=== PATIENT | male | born 1950 | race Caucasian/White ===

== ENCOUNTER → 2017-07-21 18:07 | Emergency (ER) | payer MEDICARE, OTHER ==
[2017-07-21 21:24] VITALS: BP 110/68
--- NOTE | 2017-07-22 12:04 | ED ---
Kenroy López Nikita, scribed for Ladarius Peralta MD on 07/21/17 at 1851 . Complex/Multi-Sys Presentation - HPI Summary HPI Summary: his patient is a 67 year old M BIBA to ED s/p fall. Pt was walking from [place] to [employer] when his knees were feeling weak. Pt states he is unsure of any injury and is unsure if he hit anything else. Per EMS, pt fell on right shoulder and had 3, 24oz beers today. Patient denies head, shoulder, abdominal, and LE pain, and LOC. - History Of Current Complaint Chief Complaint: EDExtremityUpper Time Seen by Provider: 07/21/17 18:34 Hx Obtained From: Patient Onset/Duration: Sudden Onset - 1800, Resolved - No pain Severity Currently: None Location: Pain At: - No pain Associated Signs And Symptoms: Positive: Other - Pt reports weak knees. Pt states he is unsure of any injury and is unsure if he hit anything else. Per EMS, pt fell on right shoulder. Patient denies head, shoulder, abdominal, and LE pain, and LOC. - Allergies/Home Medications Allergies/Adverse Reactions: Allergies Allergy/AdvReac Type Severity Reaction Status Date / Time Aspirin AdvReac Hallucinati Verified 07/21/17 18:47 ons PMH/Surg Hx/FS Hx/Imm Hx Endocrine/Hematology History: Denies: Hx Diabetes Cardiovascular History: Denies: Hx Coronary Artery Disease, Hx Hypertension Psychiatric History: Denies: Hx Eating Disorder - Surgical History Surgery Procedure, Year, and Place: arthroscopic to right knee apprx 20 yrs ago Infectious Disease History: No Infectious Disease History: Denies: Traveled Outside the [place] in Last 30 Days - Family History Known Family History: Positive: Unknown - Doesn't have family. - Social History Alcohol Use: Occasionally Hx Substance Use: No Substance Use Type: Reports: None Hx Tobacco Use: Yes Smoking Status (MU): Former Smoker Review of Systems Positive: Other - Per EMS, pt fell on R shoulder; weak knees; Pt is unsure of any other injuries; NEGATIVE: head, shoulder, abdominal, and LE pain Neurological: Other - NEGATIVE: LOC All Other Systems Reviewed And Are Negative: Yes Physical Exam Triage Information Reviewed: Yes Vital Signs On Initial Exam: Initial Vitals Temp Pulse Resp BP Pulse Ox 98.2 F 99 18 102/75 92 07/21/17 18:20 07/21/17 18:20 07/21/17 18:20 07/21/17 18:20 07/21/17 18:20 Vital Signs Reviewed: Yes Appearance: Positive: Well-Appearing, No Pain Distress Skin: Positive: Warm, Skin Color Reflects Adequate Perfusion, Dry Head/Face: Positive: Normal Head/Face Inspection Eyes: Positive: Normal ENT: Positive: Normal ENT inspection Neck: Positive: Supple, Nontender Respiratory/Lung Sounds: Positive: Clear to Auscultation, Breath Sounds Present Cardiovascular: Positive: RRR Abdomen Description: Positive: Nontender, Soft Bowel Sounds: Positive: Present Musculoskeletal: Positive: Normal Neurological: Positive: Normal, Sensory/Motor Intact, Alert, Oriented to Person Place, Time, CN Intact II-III Psychiatric: Positive: Affect/Mood Appropriate Diagnostics - Vital Signs Vital Signs Temp Pulse Resp BP Pulse Ox 07/21/17 18:20 98.2 F 99 18 102/75 92 - Laboratory Lab Statement: Any lab studies that have been ordered have been reviewed, and results considered in the medical decision making process. Complex Multi-Symp Course/Dx Course Of Treatment: Mr. Doran reports that his legs are quite weak chronically and he generally walks about town with a shopping cart for support. He was drinking some beer tonight and fell and the staff [facility] concerned and called [facility]. He was allowed to rest and sober up a bit and was able to ambulate about the department unassisted. - Diagnoses Provider Diagnoses: Fall Discharge - Discharge Plan Condition: Stable Disposition: HOME Patient Education Materials: Fall Prevention (ED) Referrals: [facility] [Outside] - 3 Days The documentation as recorded by the Kenroy lane Nikita accurately reflects the service I personally performed and the decisions made by me, Ladarius Peralta MD.
== END | disposition home or self-care (01) ==
LOC: ED 18:07
DX: R53.1 Weakness (principal); W19.XXXA Unspecified fall, initial encounter; Y92.9 Unspecified place or not applicable; Z87.891 Personal history of nicotine dependence
CPT/HCPCS: 99282

== ENCOUNTER 2017-08-12 22:14 | Emergency (ER) | payer MEDICARE, MEDICAID ==
[2017-08-13 05:54] VITALS: BP 133/79
--- NOTE | 2017-08-13 07:18 | ED ---
Sara López Nilda, scribed for Maxime Redmond MD on 08/13/17 at 0237 . Back Pain - HPI Summary HPI Summary: Patient is a 67 y.o M BIBA presenting to [facility] s/p fall. At approximately 2145 tonight, the pt had fallen and was unable to get up on his own due to "unsteady knees." Pt denies any injuries during this fall and does not feel as though anything has been fractured. Negative LOC and head trauma. On triage, lumbar back pain was noted to be mild, ranked 3/10 though now he is in no pain. Pt declines any workup. - History of Current Complaint Chief Complaint: EDBackInjuryPain Stated Complaint: FALL Time Seen by Provider: 08/13/17 02:09 Hx Obtained From: Patient Onset/Duration: Resolved Onset/Duration: Resolved Back Pain Location: Is Discrete @ - Lumbar Severity Initially: Mild - 3 Severity Currently: None Pain Intensity: 0 Pain Scale Used: 0-10 Numeric Aggravating Symptom(s): Nothing Alleviating Symptom(s): Nothing Associated Signs And Symptoms: Positive: Negative - Allergies/Home Medications Allergies/Adverse Reactions: Allergies Allergy/AdvReac Type Severity Reaction Status Date / Time Aspirin AdvReac Hallucinati Verified 08/12/17 22:23 ons PMH/Surg Hx/FS Hx/Imm Hx Endocrine/Hematology History: Denies: Hx Diabetes Cardiovascular History: Denies: Hx Coronary Artery Disease, Hx Hypertension Psychiatric History: Denies: Hx Eating Disorder - Surgical History Surgery Procedure, Year, and Place: arthroscopic to right knee apprx 20 yrs ago Infectious Disease History: No Infectious Disease History: Denies: Traveled Outside the [place] in Last 30 Days - Family History Known Family History: Positive: Unknown - Doesn't have family. - Social History Alcohol Use: Daily Alcohol Amount: 3-4 double size/day Hx Substance Use: No Substance Use Type: Reports: None Hx Tobacco Use: Yes Smoking Status (MU): Current Every Day Smoker Review of Systems Negative: Fever Positive: Arthralgia - Back pain (resolved) All Other Systems Reviewed And Are Negative: Yes Physical Exam - Summary Physical Exam Summary: General: well-appearing, no pain distress Skin: warm, color reflects adequate perfusion, dry Head: normal Eyes: EOMI, ANISH ENT: normal Neck: supple, nontender Respiratory: CTA, breath sounds present Cardiovascular: RRR Abdomen: soft, nontender Bowel: present Musculoskeletal: normal, strength/ROM intact Neurological: normal, sensory/motor intact, A&O x3 Psychological: affect/mood appropriate Triage Information Reviewed: Yes Vital Signs On Initial Exam: Initial Vitals Temp Pulse Resp BP Pulse Ox 97.6 F 99 18 128/88 96 08/12/17 22:18 08/12/17 22:18 08/12/17 22:18 08/12/17 22:18 08/12/17 22:18 Vital Signs Reviewed: Yes - Diana Coma Scale Coma Scale Total: 15 Diagnostics - Vital Signs Vital Signs Temp Pulse Resp BP Pulse Ox 08/13/17 01:36 109 96 08/13/17 01:35 135/88 08/13/17 00:14 97.6 F 100 16 119/82 98 08/12/17 22:18 97.6 F 99 18 128/88 96 - Laboratory Lab Statement: Any lab studies that have been ordered have been reviewed, and results considered in the medical decision making process. Back Pain Course/Dx - Course Course Of Treatment: PATIENT REFUSED AN EXAM BY MYSELF. HE DENIES ANY C/O BROKEN BONES OR SERIOUS INJURY. HE DID WALK IN ED; HE NEEDED TO USE THE WALL FOR BALANCE. HE STATES THIS HAS BEEN THIS WAY FOR A LONG TIME. WILL ARRANGE FOR A WALKER FOR THE PATIENT. F/U PMD. NO CRITICAL CARE TIME. Assessment/Plan: Medications reviewed. Elevated BP noted and advised to f/u with PCP. - Diagnoses Provider Diagnoses: Balance problem Discharge - Discharge Plan Condition: Stable Disposition: HOME Patient Education Materials: Fall Prevention (ED) Referrals: Chino Bethea MD [Primary Care Provider] - Additional Instructions: FOLLOW UP WITH YOUR DOCTOR. RETURN TO THE EMERGENCY DEPARTMENT FOR ANY WORSENING OF YOUR CONDITION OR QUESTIONS OR CONCERNS. The documentation as recorded by the Sara lane Nilda accurately reflects the service I personally performed and the decisions made by me, Maxime Redmond MD.
== END 2017-08-13 05:51 | disposition home or self-care (01) ==
LOC: ED 22:14
DX: R26.9 Unspecified abnormalities of gait and mobility (principal); F17.200 Nicotine dependence, unspecified, uncomplicated; Z53.21 Procedure and treatment not carried out due to patient leaving prior to being seen by health care provider; Z88.6 Allergy status to analgesic agent
CPT/HCPCS: 99281

== ENCOUNTER 2017-09-09 21:11 | Inpatient (IN) | payer OTHER, MEDICAID ==
[2017-09-09 22:15] LABS: ALT 40 U/L (7-52); AST 82 U/L (13-39); Albumin 4.1 g/dL (3.2-5.2); Alkaline Phosphatase 52 U/L (34-104); Anion Gap 11 mmol/L (2-11); Blood Urea Nitrogen 3 mg/dL (6-24); CO2 Carbon Dioxide 25 mmol/L (22-32); Calcium 8.6 mg/dL (8.6-10.3); Chloride 94 mmol/L (101-111); EGFR African American 214.6 (>60); EGFR Non-African American 166.9 (>60); Globulin 3.3 g/dL (2-4); Glucose 96 mg/dL (70-100); Hematocrit 32 % (42-52); Mean Corpuscular HGB Conc 34 g/dl (31-36); Mean Corpuscular Hemoglobin 34 pg (27-31); Mean Corpuscular Volume 100 fL (80-94); Mean Platelet Volume 10 um3 (7.4-10.4); Potassium 3.7 mmol/L (3.5-5.0); Red Blood Count 3.23 10^6/ul (4.0-5.4); Red Cell Distribution Width 15 % (10.5-15); Sodium 130 mmol/L (133-145); Total Protein 7.4 g/dL (6.4-8.9); White Blood Count 2.9 10^3/ul (3.5-10.8)
[2017-09-09 22:16] LABS: Add Diff/Slide Review? Slide Review Added; Comments Flag Yes
[2017-09-09 22:33] LABS: Acetaminophen < 15 mcg/mL; Alcohol 383 mg/dL (<10); Salicylate < 2.50 mg/dL (<30)
[2017-09-09 22:48] LABS: TSH (Thyroid Stimulating Horm) 1.33 mcIU/mL (0.34-5.60)
[2017-09-09] MEDS ORDERED: Thiamine IV* 100 MG, Folic Acid IV* 1 MG, Multiple Vitamin IV ADULT* 10 ML in NS 0.9% 1... IV ONE (23:16)
--- NOTE | 2017-09-10 06:38 | ED ---
Mohini López Thomas, scribed for Harshil Garcia on 09/10/17 at 0601 . Progress - Progress Note Progress Note: The patient is a sign out from [facility], pending mental health evaluation and alcohol withdrawal. The patient will be signed out to the next ED physician at shift change pending mental health evaluation Course/Dx - Diagnoses Provider Diagnoses: Alcohol intoxication The documentation as recorded by the Mohini lane Thomas accurately reflects the service I personally performed and the decisions made by Radha hebert Emmanuel.
[2017-09-10 11:08] LABS: Urine Bilirubin Negative (Negative); Urine Glucose Negative (Negative); Urine Nitrite Negative (Negative)
[2017-09-10 11:30] LABS: Benzodiazepine Urine Screen None Detected (None Detect)
[2017-09-10] MEDS ORDERED: Nicotine Inhaler* 10 MG AMP INH PRN (12:25)
[2017-09-10] MEDS ORDERED: Thiamine IV* 100 MG/ML 2 ML VIAL IM ONE (12:30)
[2017-09-10] MEDS ORDERED: Acetaminophen TAB* 325 MG PO PRN (12:30)
[2017-09-10] MEDS ORDERED: Mouth Piece, Nicotine* 1 EACH CARTRIDGE INH ONE (13:00)
[2017-09-10] MEDS ORDERED: LORazepam TAB(*) 1 MG PO SCH (13:00)
[2017-09-10] MEDS ORDERED: LORazepam INJ* 2 MG/ML 1 ML VIAL IM ONE (15:10)
[2017-09-10] MEDS ORDERED: LORazepam INJ* 2 MG/ML 1 ML VIAL ONE (15:15)
--- NOTE | 2017-09-10 17:04 | DS ---
Subjective - Subjective Service Types: 51283 Hosp [place] Day Mgmt simple under 30 min Subjective: Patient is a 67yo male with PPHx significant for Alcohol use d/o, severe and prior hospitalizations for alcohol detox. [place] [facility] [place] [facility] staff [facility] where patient lives after he was found intoxicated on alcohol and covered in feces and urine. It was noted that patient's apartment also had fecal matter about it and it had not been maintained. Patient was informed he would be evicted from [facility] due to the condition he allowed the apartment to get to. It is reported that patient made suicidal statements after hearing. Patient noticeably had not been attending to his ADLs or iADLs. Patient is an alcoholic and endorses he has over recent months become weaker and unable to take care of himself. Patient reports daily significant abuse of alcohol, BAL on admission was 388. On admission to the [facility], patient is noted to be cachectic, tremulous, and cognitively delayed. Patient reports he drinks heavily daily to stop w/d symptoms. He denies hx of alcohol w/d seizure or DTs. He does though endorse years of daily alcohol abuse, recent poor po intake, and recent cachectic/deconditioned state since last hospitalization for alcohol detox. Hospitalist consulted to determine if patient requires higher level of care for detox. Patient informed it was determined that he will be discharged and transferred for admission to the [facility] [place] to higher level of care mx of alochol detox. Patient admitted on voluntary status. He reports making the suicidal statements in anger over being evicted. Patient denies current SI/HI and AH.VH. Patient will be discharged from the [facility] as he is determined to need higher LOC for detox. Pt. will be transferred and admitted to the [facility] [place]. Patient safe to be admitted to the medical floor without 1:1 observations. Objective - Appearance Appearance: Thin Framed Dysmorphic Features: No Hygiene: Dirty Grooming: Disheveled - Behavior Psychomotor Activities: Abnormal-Increased Exhibits Abnormal Movement: Yes - Attitude and Relatedness Attitude and Relatedness: Withdrawn Eye Contact: Poor - Speech Quality: Unpressured Latencies: Long Quantity: Terse - Mood Patient's Decription of Mood: "Upset" - Affect Observed Affect: Tense Affect Consistent with: Dysphoria - Thought Process Patient's Thought Process: Impoverished Thought Content: No Passive Wish, No Suicidal Planning, No Homicidal Ideation, No Paranoid Ideation - Sensorium Experiencing Hallucinations: No, Sensorium is Clear Type of Hallucinations: Visual: No, Auditory: No, Command: No - Level of Consciousness Level of Consciousness: Lethargic Orientation: Yes Orientated to Place, Yes Orientated to Person, No Intact, No Orientated to Time - Impulse Control Impulse Control: Poor - Insight and Judgement Insight and Judgement: Poor - Group Participation Particating in Group Activities: No - Medication Management Medication Management Adherence: No Treatment Course & Assessment Clinical Course & Impression: DISCHARGE DIAGNOSIS: 1. Alcohol withdrawal syndrome, severe 2. Alcohol use d/o, severe 3. Alcohol induced depressive d/o HOSPITAL COURSE: Patient is a 67yo male with PPHx significant for Alcohol use d/o, severe and prior hospitalizations for alcohol detox. Patient [place] [facility] [place] [place] [facility] staff of [facility] where patient lives after he was found intoxicated on alcohol and covered in feces and urine. It was noted that patient's apartment also had fecal matter about it and it had not been maintained. Patient was informed he would be evicted from [facility] due to the condition he allowed the apartment to get to. It is reported that patient made suicidal statements after hearing. Patient noticeably had not been attending to his ADLs or iADLs. Patient is an alcoholic and endorses he has over recent months become weaker and unable to take care of himself. Patient reports daily significant abuse of alcohol, BAL on admission was 388. On admission to the [facility], patient is noted to be cachectic, tremulous, and cognitively delayed. Patient reports he drinks heavily daily to stop w/d symptoms. He denies hx of alcohol w/d seizure or DTs. He does though endorse years of daily alcohol abuse, recent poor po intake, and recent cachectic/deconditioned state since last hospitalization for alcohol detox. Hospitalist consulted to determine if patient requires higher level of care for detox. Patient informed it was determined that he will be discharged and transferred for admission to the [facility] [place] to higher level of care mx of [facility] detox. Patient admitted on voluntary status. He reports making the suicidal statements in anger over being evicted. Patient denies current SI/HI and AH.VH. Patient will be discharged from the [facility] as he is determined to need higher LOC for detox. Pt. will be transferred and admitted to the [facility] [place]. Patient safe to be admitted to the medical floor without 1:1 observations. PERTINENT LABS: Laboratory Tests 09/09/17 09/09/17 09/10/17 21:50 21:50 10:46 WBC 2.9 L RBC 3.23 L Hgb 11.0 L Hct 32 L MCV 100 H MCH 34 H MCHC 34 RDW 15 Plt Count 126 L MPV 10 Neut % (Auto) 32.6 L Lymph % (Auto) 41.6 Mercer % (Auto) 23.1 H Eos % (Auto) 1.6 Baso % (Auto) 1.1 Absolute Neuts (auto) 1.0 L Absolute Lymphs (auto) 1.2 Absolute Monos (auto) 0.7 Absolute Eos (auto) 0 Absolute Basos (auto) 0 Absolute Nucleated RBC 0.01 Nucleated RBC % 0.3 Hem Pathologist Commnt Sodium 130 L Potassium 3.7 Chloride 94 L Carbon Dioxide 25 Anion Gap 11 BUN 3 L Creatinine 0.50 L Est GFR ( Amer) 214.6 Est GFR (Non-Af Amer) 166.9 BUN/Creatinine Ratio 6.0 L Glucose 96 Calcium 8.6 Total Bilirubin 0.60 AST 82 H ALT 40 Alkaline Phosphatase 52 Total Protein 7.4 Albumin 4.1 Globulin 3.3 Albumin/Globulin Ratio 1.2 TSH 1.33 Urine Color Urine Appearance Urine pH Ur Specific [place] Urine Protein Urine Ketones Urine Blood Urine Nitrate Urine Bilirubin Urine Urobilinogen Ur Leukocyte Esterase Urine Glucose Salicylates < 2.50 Urine Opiates Screen None detected Acetaminophen < 15 Ur Barbiturates Screen None detected Ur Phencyclidine Scrn None detected Ur Amphetamines Screen None detected U Benzodiazepines Scrn None detected Urine Cocaine Screen None detected U Cannabinoids Screen None detected Serum Alcohol 383 H 09/10/17 10:46 WBC RBC Hgb Hct MCV MCH MCHC RDW Plt Count MPV Neut % (Auto) Lymph % (Auto) Mercer % (Auto) Eos % (Auto) Baso % (Auto) Absolute Neuts (auto) Absolute Lymphs (auto) Absolute Monos (auto) Absolute Eos (auto) Absolute Basos (auto) Absolute Nucleated RBC Nucleated RBC % Hem Pathologist Commnt Sodium Potassium Chloride Carbon Dioxide Anion Gap BUN Creatinine Est GFR ( Amer) Est GFR (Non-Af Amer) BUN/Creatinine Ratio Glucose Calcium Total Bilirubin AST ALT Alkaline Phosphatase Total Protein Albumin Globulin Albumin/Globulin Ratio TSH Urine Color Yellow Urine Appearance Clear Urine pH 5.0 Ur Specific [place] 1.005 L Urine Protein Negative Urine Ketones Negative Urine Blood Negative Urine Nitrate Negative Urine Bilirubin Negative Urine Urobilinogen Negative Ur Leukocyte Esterase Negative Urine Glucose Negative Salicylates Urine Opiates Screen Acetaminophen Ur Barbiturates Screen Ur Phencyclidine Scrn Ur Amphetamines Screen U Benzodiazepines Scrn Urine Cocaine Screen U Cannabinoids Screen Serum Alcohol Discharge Meds: Continue Medications from [facility] admission orders. Consultants: 1. Hospitalist consulted for determination of need for higher LOC for alcohol detox. Follow-Up: Will follow patient on the medical floor. Merits Inpatient Hospitalization: Yes Clear for Discharge: Low Utility of In Care Inpatient DSM-IV Dx: 1. Alcohol withdrawal syndrome, severe. 2. Alcohol use d/o , severe. 3. Alcohol induced depressive d/o Discharge Planning - Discharge Planning Discharge Plan: Inpatient Hospitalization - Patient will be discharged from the [facility] as he is determined to need higher LOC for detox. Pt. will be transferred and admitted to the [facility] [place]. Medications: Current Medications Acetaminophen (Tylenol Tab*) 650 mg PO Q4H PRN PRN Reason: PAIN Folic Acid (Folvite Tab*) 1 mg PO DAILY SANDRA Lorazepam (Ativan Tab(*)) 0 - 6 mg PO .PER [facility] PROTOCOL SANDRA PRN Reason: Protocol Multivitamins (Theragran Tab*) 1 tab PO DAILY SANDRA Nicotine (Nicotine Inhaler*) 10 mg INH Q2H PRN PRN Reason: CRAVING Nicotine (Nicotine Patch 7 Mg/24 Hr*) 1 patch TRANSDERM DAILY@0800 [facility] Nicotine (Nicotine Patch 14 Mg/24 Hr*) 1 patch TRANSDERM DAILY@0800 [facility] Nicotine (Nicotine Patch 21 Mg/24 Hr*) 1 patch TRANSDERM DAILY@0800 [facility] Pharmacy Profile Note (Nicotine Patch Removal Note*) 1 note PATCH OFF 2100 [facility] Thiamine HCl (Vitamin B-1 Tab*) 100 mg PO DAILY [facility] Discharge Planning: Prescriptions provided for discharge [x] Yes [] No Follow up care details as per social work arrangements. Patient response to discharge plan: [] eager for discharge [x] agreeable with discharge plan [] ambivalent about discharge [] disagrees with discharge today
--- NOTE | 2017-09-10 17:04 | HP ---
H&P (Free Text) History and Physical: HPI: ---- Patient is a 67yo male with PPHx significant for Alcohol use d/o, severe and prior hospitalizations for alcohol detox. Patient presents to the [facility] ED [facility]IBA called by staff of [facility] where patient lives after he was found intoxicated on alcohol and covered in feces and urine. It was noted that patient's apartment also had fecal matter about it and it had not been maintained. Patient was informed he would be evicted from [place] due to the condition he allowed the apartment to get to. It is reported that patient made suicidal statements after hearing. Patient noticeably had not been attending to his ADLs or iADLs. Patient is an alcoholic and endorses he has over recent months become weaker and unable to take care of himself. Patient reports daily significant abuse of alcohol, BAL on admission was 388. On admission to the [facility], patient is noted to be cachectic, tremulous, and cognitively delayed. Patient reports he drinks heavily daily to stop w/d symptoms. He denies hx of alcohol w/d seizure or DTs. He does though endorse years of daily alcohol abuse, recent poor po intake, and recent cachectic/deconditioned state since last hospitalization for alcohol detox. Hospitalist consulted to determine if patient requires higher level of care for detox. Patient informed it was determined that he will be discharged and transferred for admission to the [facility] medical unit to higher level of care mx of alochol detox. Patient admitted on voluntary status. He reports making the suicidal statements in anger over being evicted. Patient denies current SI/HI and AH.VH. Patient safe to be admitted to the medical floor without 1:1 observations. Past Psych Hx: Inpt - Patient endorses prior psychiatric hospitalizations due to alcohol intox , w/d symptoms, alcohol induced mood d/o, and need for detox. Outpt - none currently Psychotropic med hx - none currently Suicide attempt Hx / SIB Hx: Patient reports he has no hx of suicide attempt. Substance Hx: Patient reports daily significant abuse of alcohol, BAL on admission was 388. Patient reports he drinks heavily daily to stop w/d symptoms. Patient denies hx of alcohol w/d seizure or DTs Medical Hx: Alcohol use disorder, severe Deconditioned Anemic 2/2 alcoholism Allergies: --------- ASA Social Hx: --------- -Patient lived alone in [facility] until this recnt event -Patient reports he has been evicted from [place] and is now homeless. -Patient reports he has no pending legal issues -Patient reports no remaining family in the area -Patient reports he spends his days isolated in his apartment with no visitors. Home Medications: Home Medications Medication Instructions Recorded Confirmed Type NK [No Home Medications Reported] 10/17/12 09/10/17 History VITALS: --------- Vital Signs (72 hours) 09/09/17 09/10/17 09/10/17 21:16 03:11 07:24 Temperature 97.2 F 98.7 F Pulse Rate 109 116 100 Respiratory 20 20 18 Rate Blood Pressure 128/80 117/87 131/78 (mmHg) O2 Sat by Pulse 93 96 94 Oximetry 09/10/17 09/10/17 09/10/17 09:00 10:28 12:40 Temperature Pulse Rate 95 98 107 Respiratory 16 16 14 Rate Blood Pressure 131/76 133/84 166/88 (mmHg) O2 Sat by Pulse 95 96 100 Oximetry 09/10/17 09/10/17 09/10/17 14:35 15:15 15:30 Temperature 98.0 F Pulse Rate 109 Respiratory 18 18 19 Rate Blood Pressure 144/82 (mmHg) O2 Sat by Pulse 96 Oximetry 09/10/17 09/10/17 15:49 18:47 Temperature 98.1 F Pulse Rate 116 Respiratory 19 18 Rate Blood Pressure 140/84 (mmHg) O2 Sat by Pulse 96 Oximetry LABS: -------- Laboratory Tests 09/09/17 09/09/17 09/10/17 21:50 21:50 10:46 WBC 2.9 L RBC 3.23 L Hgb 11.0 L Hct 32 L MCV 100 H MCH 34 H MCHC 34 RDW 15 Plt Count 126 L MPV 10 Neut % (Auto) 32.6 L Lymph % (Auto) 41.6 Payne % (Auto) 23.1 H Eos % (Auto) 1.6 Baso % (Auto) 1.1 Absolute Neuts (auto) 1.0 L Absolute Lymphs (auto) 1.2 Absolute Monos (auto) 0.7 Absolute Eos (auto) 0 Absolute Basos (auto) 0 Absolute Nucleated RBC 0.01 Nucleated RBC % 0.3 Hem Pathologist Commnt Sodium 130 L Potassium 3.7 Chloride 94 L Carbon Dioxide 25 Anion Gap 11 BUN 3 L Creatinine 0.50 L Est GFR ( Amer) 214.6 Est GFR (Non-Af Amer) 166.9 BUN/Creatinine Ratio 6.0 L Glucose 96 Calcium 8.6 Total Bilirubin 0.60 AST 82 H ALT 40 Alkaline Phosphatase 52 Total Protein 7.4 Albumin 4.1 Globulin 3.3 Albumin/Globulin Ratio 1.2 TSH 1.33 Urine Color Urine Appearance Urine pH Ur Specific [place] Urine Protein Urine Ketones Urine Blood Urine Nitrate Urine Bilirubin Urine Urobilinogen Ur Leukocyte Esterase Urine Glucose Salicylates < 2.50 Urine Opiates Screen None detected Acetaminophen < 15 Ur Barbiturates Screen None detected Ur Phencyclidine Scrn None detected Ur Amphetamines Screen None detected U Benzodiazepines Scrn None detected Urine Cocaine Screen None detected U Cannabinoids Screen None detected Serum Alcohol 383 H 09/10/17 10:46 WBC RBC Hgb Hct MCV MCH MCHC RDW Plt Count MPV Neut % (Auto) Lymph % (Auto) Payne % (Auto) Eos % (Auto) Baso % (Auto) Absolute Neuts (auto) Absolute Lymphs (auto) Absolute Monos (auto) Absolute Eos (auto) Absolute Basos (auto) Absolute Nucleated RBC Nucleated RBC % Hem Pathologist Commnt Sodium Potassium Chloride Carbon Dioxide Anion Gap BUN Creatinine Est GFR ( Amer) Est GFR (Non-Af Amer) BUN/Creatinine Ratio Glucose Calcium Total Bilirubin AST ALT Alkaline Phosphatase Total Protein Albumin Globulin Albumin/Globulin Ratio TSH Urine Color Yellow Urine Appearance Clear Urine pH 5.0 Ur Specific [place] 1.005 L Urine Protein Negative Urine Ketones Negative Urine Blood Negative Urine Nitrate Negative Urine Bilirubin Negative Urine Urobilinogen Negative Ur Leukocyte Esterase Negative Urine Glucose Negative Salicylates Urine Opiates Screen Acetaminophen Ur Barbiturates Screen Ur Phencyclidine Scrn Ur Amphetamines Screen U Benzodiazepines Scrn Urine Cocaine Screen U Cannabinoids Screen Serum Alcohol PHYSICAL EXAM: GEN - thin male, cachectic, looks older than stated age, tremulous HEENT - NC/AT, EOEMI, no lesions or discharge noted, conjunctivae clear NECK - supple, trachea midline CARDIAC - S1/S2, no discernable murmurs ABD - (+) BS x 4 quad, non-tender EXT - no edema, no lesions MUSCULOSKEL - 3-4/5 muscle strength in all extremities NEURO - CN 2-12, weak and unsteady gait MSE: ----- Appearance - thin male, cachectic, looks older than stated age, tremulous Behavior - moderately tremulous, calm, cooperative Speech - soft volume, slow rate, mildly increased latency, non-spontaneous Eye Contact - poor Mood - "not doing too good" Affect - depressed TP - linear TC - impoverished Perception - no signs of psychosis noted or reported Orientation - A&Ox2(person and place) Cognition - slowed Insight - poor Judgement - poor SI / HI - SI w/plan present on admission, currently denies both ASSESSMENT: 1. Alcohol withdrawal syndrome, severe 2. Alcohol use d/o, severe 3. Alcohol induced depressive d/o PLAN: ------- 1. Patient currently medically unstable due to severity of withdrawal syndromes. 2. Hospitalist consulted to determine if patient requires higher level of care for detox. 3. Patient will be discharged and transferred for admission to the [facility] medical unit to higher level of care mx of alochol detox. 4. Patient admitted voluntarily, reports making the suicidal statement in anger over being evicted, patient denies current SI. Patient safe to be admitted to the medical floor without 1:1 observations.
[2017-09-10 18:49] VITALS: BP 140/84
--- NOTE | 2017-09-10 19:02 | ED ---
Trell López Benjamin, scribed for Chino Daily MD on 09/10/17 at 1302 . Progress - Progress Note Progress Note: Signout patient from Dr. Garcia pending Mental health evaluation and disposition. - Consult/PCP Time Called: 11:45 Course/Dx - Course Course Of Treatment: Pt will be admitted to Dr. Sewell (Psychiatrist) with dx of major depression and alcohol dependence and withdrawal. - Diagnoses Provider Diagnoses: Alcohol intoxication, Major depression The documentation as recorded by the Trell lane Benjamin accurately reflects the service I personally performed and the decisions made by , Chino Daily MD.
[2017-09-10] MEDS ORDERED: Nicotine Patch Removal NOTE PATCH OFF SCH (21:00)
[2017-09-11] MEDS ORDERED: Nicotine PATCH 14 MG/24 HR* PATCH TRANSDERM SCH (08:00)
[2017-09-11] MEDS ORDERED: Nicotine PATCH 7 MG/24 HR* PATCH TRANSDERM SCH (08:00)
[2017-09-11] MEDS ORDERED: Nicotine PATCH 21 MG/24 HR* PATCH TRANSDERM SCH (08:00)
[2017-09-11] MEDS ORDERED: Vitamin THERAPEUTIC TAB PO SCH (09:00)
[2017-09-11] MEDS ORDERED: Folic Acid TAB* 1 MG PO SCH (09:00)
[2017-09-11] MEDS ORDERED: Thiamine TAB* 100 MG TAB PO SCH (09:00)
--- NOTE | 2017-11-06 14:18 | ED ---
Psychiatric Complaint - HPI Summary HPI Summary: Pt here w/ ETOH abuse and SI on 09/09/2017. He came in by ambulance. Is vague with responses but appears to be intoxicated and in poor management of his self care (ie. disheveled, malodorous, matted hair, soiled clothing, etc). His blood ETOH is 383 and he admits to ETOH consumption. No pain or other complaints at this time. Denies head injury, SANTIAGO, visual changes, neck pain, numbness, tingling , weakness, pain or injury at this time. - History Of Current Complaint Chief Complaint: EDMentalHealth Time Seen by Provider: 09/09/17 21:30 Hx Obtained From: Patient - Allergies/Home Medications Allergies/Adverse Reactions: Allergies Allergy/AdvReac Type Severity Reaction Status Date / Time Aspirin AdvReac Hallucinati Verified 08/12/17 22:23 ons PMH/Surg Hx/FS Hx/Imm Hx Previously Healthy: No - chronic ETOH, poor self care Endocrine/Hematology History: Denies: Hx Diabetes Cardiovascular History: Denies: Hx Coronary Artery Disease, Hx Hypertension Sensory History: Reports: Hx Contacts or Glasses Denies: Hx Hearing Aid Opthamlomology History: Reports: Hx Contacts or Glasses Neurological History: Reports: Hx Seizures - While detoxing Psychiatric History: Denies: Hx Eating Disorder, Hx of Violent Episodes Against Others - Surgical History Surgery Procedure, Year, and Place: arthroscopic to right knee apprx 20 yrs ago Infectious Disease History: No Infectious Disease History: Denies: Traveled Outside the [place] in Last 30 Days - Family History Known Family History: Positive: Unknown - Doesn't have family - in foster care as child - Social History Occupation: Retired Lives: Alone Alcohol Use: Daily Alcohol Amount: 10 beers a day Hx Substance Use: No Substance Use Type: Reports: None Hx Tobacco Use: Yes Smoking Status (MU): Current Every Day Smoker Amount Used/How Often: 1ppd, stoped a few weeks a go, uses no other tobacco products. Review of Systems Constitutional: Negative Positive: Fatigue - tired. Negative: Fever, Chills Eyes: Negative ENT: Negative Cardiovascular: Negative Negative: Palpitations, Chest Pain Respiratory: Negative Negative: Shortness Of Breath, Cough Gastrointestinal: Negative Negative: Abdominal Pain, Vomiting, Diarrhea, Nausea Genitourinary: Negative Negative: burning, dysuria, discharge, frequency, flank pain, hematuria, incontinence, pain, urgency Musculoskeletal: Negative Skin: Negative Neurological: Negative Psychological: Other - ETOH dependence, SI All Other Systems Reviewed And Are Negative: Yes Physical Exam Triage Information Reviewed: Yes Vital Signs On Initial Exam: Initial Vitals Temp Pulse Resp BP Pulse Ox 97.2 F 109 20 128/80 93 09/09/17 21:16 09/09/17 21:16 09/09/17 21:16 09/09/17 21:16 09/09/17 21:16 Vital Signs Reviewed: Yes Appearance: Positive: No Pain Distress - pt is disheveled w/ apparent lack of self care - malodorous, clothing soiled, hair matted, etc. He is sitting calmly at the edge of his bed; vague w/ responses - does not engage in much conversation; appears and smells intoxicated with ETOH; pleasant; NAD, Thin Skin: Positive: Warm, Dry - no signs of acute trauma/injury - skin appears poorly cared for re: hygiene Head/Face: Positive: Normal Head/Face Inspection - NTTP, no battlesign, no step off, no racoon eyes, no lacs Eyes: Positive: Normal, EOMI, ANISH, Conjunctiva Clear - anicteric sclera ENT: Positive: Hearing grossly normal, Pharynx normal - mucosa moist - no ayden lesions Neck: Positive: Supple, Nontender Respiratory/Lung Sounds: Positive: Clear to Auscultation, Breath Sounds Present. Negative: Rales, Rhonchi, Subcutaneous Emphysema, Stridor, Tracheal Deviation, Wheezes Cardiovascular: Positive: Normal, RRR, Pulses are Symmetrical in both Upper and Lower Extremities, S1, S2. Negative: Murmur, Rub, Leg Edema Left, Leg Edema Right Abdomen Description: Positive: Nontender, No Organomegaly, Soft Bowel Sounds: Positive: Present Musculoskeletal: Positive: Normal, Strength/ROM Intact Neurological: Positive: Sensory/Motor Intact - responds to touch and moving in a mostly coordinated fashion, Alert, Oriented to Person Place, Time, CN Intact II-III Psychiatric: Positive: Normal - Diana Coma Scale Coma Scale Total: 15 Diagnostics - Vital Signs Vital Signs Temp Pulse Resp BP Pulse Ox 09/10/17 14:35 18 09/10/17 12:40 107 14 166/88 100 09/10/17 10:28 98 16 133/84 96 09/10/17 09:00 95 16 131/76 95 09/10/17 07:24 100 18 131/78 94 09/10/17 03:11 98.7 F 116 20 117/87 96 09/09/17 21:16 97.2 F 109 20 128/80 93 - Laboratory Lab Results: Lab Results 09/09/17 09/09/17 09/10/17 Range/Units 21:50 21:50 10:46 WBC 2.9 L (3.5-10.8) 10^3/ul RBC 3.23 L (4.0-5.4) 10^6/ul Hgb 11.0 L (14.0-18.0) g/dl Hct 32 L (42-52) % MCV 100 H (80-94) fL MCH 34 H (27-31) pg MCHC 34 (31-36) g/dl RDW 15 (10.5-15) % Plt Count 126 L (150-450) 10^3/ul MPV 10 (7.4-10.4) um3 Neut % (Auto) 32.6 L (38-83) % Lymph % (Auto) 41.6 (25-47) % Norman % (Auto) 23.1 H (1-9) % Eos % (Auto) 1.6 (0-6) % Baso % (Auto) 1.1 (0-2) % Absolute Neuts (auto) 1.0 L (1.5-7.7) 10^3/ul Absolute Lymphs (auto) 1.2 (1.0-4.8) 10^3/ul Absolute Monos (auto) 0.7 (0-0.8) 10^3/ul Absolute Eos (auto) 0 (0-0.6) 10^3/ul Absolute Basos (auto) 0 (0-0.2) 10^3/ul Absolute Nucleated RBC 0.01 10^3/ul Nucleated RBC % 0.3 Hem Pathologist Commnt Sodium 130 L (133-145) mmol/L Potassium 3.7 (3.5-5.0) mmol/L Chloride 94 L (101-111) mmol/L Carbon Dioxide 25 (22-32) mmol/L Anion Gap 11 (2-11) mmol/L BUN 3 L (6-24) mg/dL Creatinine 0.50 L (0.67-1.17) mg/dL Est GFR ( Amer) 214.6 (>60) Est GFR (Non-Af Amer) 166.9 (>60) BUN/Creatinine Ratio 6.0 L (8-20) Glucose 96 (70-100) mg/dL Calcium 8.6 (8.6-10.3) mg/dL Total Bilirubin 0.60 (0.2-1.0) mg/dL AST 82 H (13-39) U/L ALT 40 (7-52) U/L Alkaline Phosphatase 52 (34-104) U/L Total Protein 7.4 (6.4-8.9) g/dL Albumin 4.1 (3.2-5.2) g/dL Globulin 3.3 (2-4) g/dL Albumin/Globulin Ratio 1.2 (1-3) TSH 1.33 (0.34-5.60) mcIU/mL Urine Color Urine Appearance Urine pH (5-9) Ur Specific [place] (1.010-1.030) Urine Protein (Negative) Urine Ketones (Negative) Urine Blood (Negative) Urine Nitrate (Negative) Urine Bilirubin (Negative) Urine Urobilinogen (Negative) Ur Leukocyte Esterase (Negative) Urine Glucose (Negative) Salicylates < 2.50 (<30) mg/dL Urine Opiates Screen None detected (None Detect) Acetaminophen < 15 mcg/mL Ur Barbiturates Screen None detected (None Detect) Ur Phencyclidine Scrn None detected (None Detect) Ur Amphetamines Screen None detected (None Detect) U Benzodiazepines Scrn None detected (None Detect) Urine Cocaine Screen None detected (None Detect) U Cannabinoids Screen None detected (None Detect) Serum Alcohol 383 H (<10) mg/dL 09/10/17 Range/Units 10:46 WBC (3.5-10.8) 10^3/ul RBC (4.0-5.4) 10^6/ul Hgb (14.0-18.0) g/dl Hct (42-52) % MCV (80-94) fL MCH (27-31) pg MCHC (31-36) g/dl RDW (10.5-15) % Plt Count (150-450) 10^3/ul MPV (7.4-10.4) um3 Neut % (Auto) (38-83) % Lymph % (Auto) (25-47) % Norman % (Auto) (1-9) % Eos % (Auto) (0-6) % Baso % (Auto) (0-2) % Absolute Neuts (auto) (1.5-7.7) 10^3/ul Absolute Lymphs (auto) (1.0-4.8) 10^3/ul Absolute Monos (auto) (0-0.8) 10^3/ul Absolute Eos (auto) (0-0.6) 10^3/ul Absolute Basos (auto) (0-0.2) 10^3/ul Absolute Nucleated RBC 10^3/ul Nucleated RBC % Hem Pathologist Commnt Sodium (133-145) mmol/L Potassium (3.5-5.0) mmol/L Chloride (101-111) mmol/L Carbon Dioxide (22-32) mmol/L Anion Gap (2-11) mmol/L BUN (6-24) mg/dL Creatinine (0.67-1.17) mg/dL Est GFR ( Amer) (>60) Est GFR (Non-Af Amer) (>60) BUN/Creatinine Ratio (8-20) Glucose (70-100) mg/dL Calcium (8.6-10.3) mg/dL Total Bilirubin (0.2-1.0) mg/dL AST (13-39) U/L ALT (7-52) U/L Alkaline Phosphatase (34-104) U/L Total Protein (6.4-8.9) g/dL Albumin (3.2-5.2) g/dL Globulin (2-4) g/dL Albumin/Globulin Ratio (1-3) TSH (0.34-5.60) mcIU/mL Urine Color Yellow Urine Appearance Clear Urine pH 5.0 (5-9) Ur Specific [place] 1.005 L (1.010-1.030) Urine Protein Negative (Negative) Urine Ketones Negative (Negative) Urine Blood Negative (Negative) Urine Nitrate Negative (Negative) Urine Bilirubin Negative (Negative) Urine Urobilinogen Negative (Negative) Ur Leukocyte Esterase Negative (Negative) Urine Glucose Negative (Negative) Salicylates (<30) mg/dL Urine Opiates Screen (None Detect) Acetaminophen mcg/mL Ur Barbiturates Screen (None Detect) Ur Phencyclidine Scrn (None Detect) Ur Amphetamines Screen (None Detect) U Benzodiazepines Scrn (None Detect) Urine Cocaine Screen (None Detect) U Cannabinoids Screen (None Detect) Serum Alcohol (<10) mg/dL Result Diagrams: 09/09/17 21:50 09/09/17 21:50 Lab Statement: Any lab studies that have been ordered have been reviewed, and results considered in the medical decision making process. Course/Dx - Course Course Of Treatment: Pt here w/ ETOH dependence and loose SI. Needs to be held in ED until ETOH <100. WAM protocol ordered and no s/sx of withdrawal at this point time. Signed out to Dr. Garcia awaiting evaluation early AM on 2016 from Jessica Pride PA-C. UPDATE: Pt will be admitted to Dr. Sewell ( Psychiatrist) with dx of major depression and alcohol dependence and withdrawal. - Differential Dx/Clinical Impression Provider Diagnosis: Alcohol intoxication, Major depression Discharge - Discharge Plan Condition: Guarded Disposition: [facility]CHIATRIC FAC[place] [place]
== END 2017-09-10 18:15 | disposition short-term general hospital (02) | DRG 897 ==
LOC: ED 21:11 → BSU 09-10 14:58
PROVIDERS: ADMIT Psychiatry & Neurology Psychiatry; ATTEND Psychiatry & Neurology Psychiatry
DX: F10.239 Alcohol dependence with withdrawal, unspecified (principal); F10.229 Alcohol dependence with intoxication, unspecified; D64.89 Other specified anemias; Y90.8 Blood alcohol level of 240 mg/100 ml or more; F10.24 Alcohol dependence with alcohol-induced mood disorder
CPT/HCPCS: 36415; 80053; 80307; 80320; 80329; 81003; 84443; 85025; 85060; G0480; J2060; J3411

== ENCOUNTER 2017-09-10 17:44 | Inpatient (IN) | payer MEDICARE, MEDICAID ==
[2017-09-10] MEDS ORDERED: Ondansetron INJ* 2 MG/ML VIAL IV PRN (18:20)
[2017-09-10] MEDS: LORazepam TAB(*) 1 MG PO SCH (19:47)
[2017-09-10] MEDS ORDERED: Thiamine IV 100 MG, Folic Acid IV* 1 MG, Multiple Vitamin IV ADULT* 10 ML in NS 0.9% 10... IV ONE (21:00)
[2017-09-10] MEDS: Heparin VIAL(*) 5000 UNITS/ML VIAL (FIVE THOUSAND) SUBCUT SCH (21:42)
--- NOTE | 2017-09-10 23:50 | HP ---
CC: Dr. Bethea* [facility] MEDICINE HISTORY AND PHYSICAL: DATE OF ADMISSION: 09/10/17 PRIMARY CARE PHYSICIAN: Dr. Bethea. ATTENDING PHYSICIAN: Mark Rolon MD* (dictation provided by Yvette Taylor NP) CHIEF COMPLAINT: Found on the floor. HISTORY OF PRESENT ILLNESS: Mr. Doran is a 67 yo male with a PMH of alcoholism who has limited recall of events from early today. Per EMS, they were called for back pain. The patient himself is unclear of what happened today, although he states he has been falling recently and that he believes he might have fallen. EMS reported that the patient smelled of urine and was covered in stool. Initially, he told the EMS that he wanted to kill himself because he was concerned about being evicted from his home at [facility]. Mr. Doran states that he has had long-term problem with alcoholism. He drinks almost all day every day. He lives alone at [facility]. He has no family or any other support system. He is able to ambulate with the use of a grocery cart to get to the local grocery store or convenience store to buy food and alcohol. He states he has become very weak and has been falling a lot recently. He does not report any weight loss. He denies any acute complaint today including chest pain, shortness of breath, nausea, vomiting, diarrhea, abdominal pain. In the emergency room, the patient had a white blood cell count of 2.9 with hemoglobin of 11, hematocrit 32. The rest of his labs were unremarkable other than his serum alcohol level which was 383. Initially, there was concern that he was voicing suicidal ideation that would require treatment on the mental health unit. He was briefly admitted to the mental health unit but on arrival , he appeared to be actively withdrawing from alcohol. I assessed the patient with Dr. Sewell from psychiatric service and we agree that the patient had no active risk for suicide and denied any suicidal ideation at this point. Based on the patient's active alcohol withdrawal symptoms, he was transferred to the medical service. PAST MEDICAL HISTORY: None. MEDICATIONS: None. ALLERGIES: ASPIRIN. FAMILY HISTORY: The patient states that he never knew his father and that his mother was "taken away from him" because she had cerebral palsy and was an alcoholic. He states he grew up in an orphanage. SOCIAL HISTORY: The patient reports being a longtime alcoholic and smoker. He denies any drug use. He reports going to rehab and being in a penitentiary house at one point, but he is not clear exactly about the timing. REVIEW OF SYSTEMS: A 14-point review of systems was completed with Mr. Doran and all those not mentioned above were negative. PHYSICAL EXAMINATION GENERAL: Mr. Doran is sitting in the bed. He is no acute distress. VITAL SIGNS: Temperature 98.1, pulse rate 116, respiratory rate 18, O2 saturation 96% on room air, blood pressure 140/84. LUNGS: Clear to auscultation bilaterally with no accessory muscle use and good aeration. HEART: S1, S2. No murmur, rub, or gallop and regular. ABDOMEN: Soft, nontender with bowel sounds positive x4. NEURO: He is alert. He is oriented x3. He moves all extremities equally. There is no facial asymmetry or focal weakness. Extraocular movements are intact. He does have a tremor. He is quite weak and has difficulty with some bed mobility. EXTREMITIES: No cyanosis or edema. SKIN: Intact. DIAGNOSTIC STUDIES/LAB DATA: WBC 2.9, hemoglobin 11.0, hematocrit 32, and platelet count 126. Sodium 130, potassium 3.7, chloride 94, serum bicarbonate 25, BUN 3, creatinine 0.50, glucose 96. Urine shows no evidence of infection. Tox screen shows a serum alcohol level of 383. ASSESSMENT: Mr. Doran is a 67-year-old male with a past medical history of alcoholism and smoking who presents today to the hospital after calling out of concern for back pain. He was found to be very disheveled and covered in stool and urine with request for alcohol detoxification. Our plans are as follows: 1. Alcohol withdrawal: The patient clearly is having alcohol withdrawal symptoms now, although they have improved since he was originally assessed in the mental health unit earlier today. Plan to continue with Ativan via the [facility] protocol. He also has multivitamin, folate, and thiamine. Plan to order a banana bag now. Social work has been consulted. 2. Nicotine use: The patient has been offered nicotine replacement therapy and it is available p.r.n. 3. Back pain. The patient denies any pain for me at this point. As he becomes more lucid and alcohol clears, we can continue to assess closely for any concern for new somatic complaint such as back pain. 4. Deep vein thrombosis prophylaxis with heparin subcu. 5. Code status is full code. 6. Disposition to the medical floor. The patient is from [facility] and per his report he had been given an eviction notice because of how unsanitary his home is. I have told him that Social Work and case management will be following with him to help with a safe discharge plan. TIME SPENT: Approximately 60 minutes were spent on the admission of this patient; more than half of the time was spent with the patient at the bedside reviewing the events leading up to this hospitalization, performing the physical examination, and reviewing my plan of care. YVETTE TAYLOR NP [id number]/[facility] #: [id number] JANEL
[2017-09-11] MEDS: Heparin VIAL(*) 5000 UNITS/ML VIAL (FIVE THOUSAND) SUBCUT SCH ×3 (06:01→21:35)
[2017-09-11 07:15] LABS: Hematocrit 32 % (42-52); Hemoglobin 11.1 g/dl (14.0-18.0); Mean Corpuscular HGB Conc 34 g/dl (31-36); Mean Corpuscular Hemoglobin 35 pg (27-31); Mean Corpuscular Volume 101 fL (80-94); Mean Platelet Volume 11 um3 (7.4-10.4); Red Blood Count 3.19 10^6/ul (4.0-5.4); Red Cell Distribution Width 14 % (10.5-15); White Blood Count 4.1 10^3/ul (3.5-10.8)
[2017-09-11 07:49] LABS: Calcium 8.7 mg/dL (8.6-10.3); EGFR African American 184.5 (>60); EGFR Non-African American 143.5 (>60); Potassium 2.9 mmol/L (3.5-5.0)
[2017-09-11] MEDS: Nicotine PATCH 14 MG/24 HR* PATCH TRANSDERM SCH (08:20)
[2017-09-11] MEDS: Folic Acid TAB* 1 MG PO SCH (08:20)
[2017-09-11] MEDS: Thiamine TAB* 100 MG TAB PO SCH (08:20)
[2017-09-11] MEDS: Multivitamins/Minerals TAB PO SCH (08:20)
[2017-09-11] MEDS: Potassium Chlor TAB* 20 MEQ TAB.ER PO SCH ×3 (10:44→20:04)
--- NOTE | 2017-09-11 14:52 | PN ---
Subjective Date of Service: 09/11/17 Interval History: Patient has no acute complaints. Patient has continued tremor and diarrhea. Patient alert but subdued and oriented to person, date and knew that he was in a hospital but did not know which. Patient endorses vague suicidal ideation and talks wistfully about a time when he had decided to commit suicide and could not follow through with it. Has no SI at this time. Patient states that he has had small amounts of bright red blood in his stools occasionally for years. Has never been evaluated or had a colonoscopy. Denies anal pain or itching. Patient vomited once last evening without blood. Patient states that it has been 2 days since his last drink. Denies CP, SOB, F/C, abdominal pain, dizziness, lightheadedness. Patient has quit cigarettes for 3 weeks and is not actively craving. Family History: Unchanged from Admission Social History: Unchanged from Admission Past Medical History: Unchanged from Admission Objective Active Medications: Acetaminophen (Tylenol Tab*) 650 mg PO Q4H PRN PRN Reason: PAIN Folic Acid (Folvite Tab*) 1 mg PO DAILY [facility] Last Admin: 09/11/17 08:20 Dose: 1 mg Heparin Sodium (Porcine) (Heparin Vial(*)) 5,000 units SUBCUT Q8HR [facility] Last Admin: 09/11/17 13:42 Dose: 5,000 units Lorazepam (Ativan Tab(*)) 0 - 6 mg PO .PER [facility] PROTOCOL [facility] PRN Reason: Protocol Last Admin: 09/10/17 19:47 Dose: 1 mg Multivitamins/Minerals (Theragran/Minerals Tab*) 1 tab PO DAILY [facility] Last Admin: 09/11/17 08:20 Dose: 1 tab Nicotine (Nicotine Inhaler*) 10 mg INH Q2H PRN PRN Reason: CRAVING Nicotine (Nicotine Patch 14 Mg/24 Hr*) 1 patch TRANSDERM DAILY [facility] Last Admin: 09/11/17 08:20 Dose: Not Given Ondansetron HCl (Zofran Inj*) 4 mg IV Q6H PRN PRN Reason: NAUSEA Pharmacy Profile Note (Nicotine Patch Removal Note*) 1 note PATCH OFF 2100 [facility] Potassium Chloride (Klor Con Er Tab*) 20 meq PO TID [facility] Last Admin: 09/11/17 13:42 Dose: 20 meq Thiamine HCl (Vitamin B-1 Tab*) 100 mg PO DAILY [facility] Last Admin: 10/25/17 08:20 Dose: 100 mg Vital Signs 09/10/17 09/10/17 09/10/17 18:47 19:16 19:47 Temperature 98.1 F Pulse Rate 116 Respiratory 18 20 20 Rate Blood Pressure 140/84 (mmHg) O2 Sat by Pulse 96 Oximetry 09/10/17 09/10/17 09/10/17 20:00 20:07 21:42 Temperature 99.0 F Pulse Rate 94 Respiratory 18 20 18 Rate Blood Pressure 140/83 (mmHg) O2 Sat by Pulse 96 Oximetry 09/10/17 09/10/17 09/11/17 22:44 23:25 04:05 Temperature 98.9 F 98.6 F Pulse Rate 88 86 70 Respiratory 18 16 16 Rate Blood Pressure 146/89 142/76 139/84 (mmHg) O2 Sat by Pulse 96 97 97 Oximetry 09/11/17 09/11/17 09/11/17 08:10 08:34 09:42 Temperature 98.0 F 98.2 F Pulse Rate 78 99 Respiratory 18 18 21 Rate Blood Pressure 139/74 126/71 (mmHg) O2 Sat by Pulse 97 98 Oximetry 09/11/17 09/11/17 10:16 12:08 Temperature 98.2 F 98.0 F Pulse Rate 70 86 Respiratory 18 20 Rate Blood Pressure 141/72 133/70 (mmHg) O2 Sat by Pulse 98 96 Oximetry Oxygen Devices in Use Now: None Appearance: Patient is a 67yo male who appears older than stated age, is visibly disheaveled, emaciated and tremulous and is sitting in the bed in NAD. Eyes: No Scleral Icterus, PERRLA Ears/Nose/Mouth/Throat: Clear Oropharnyx, Mucous Membranes Moist, - - Upper dentures Neck: NL Appearance and Movements; NL JVP Respiratory: Symmetrical Chest Expansion and Respiratory Effort, Clear to Auscultation Cardiovascular: NL Sounds; No Murmurs; No JVD, RRR, No Edema Abdominal: No Hepatosplenomegaly, - - Hyper Lymphatic: No Cervical Adenopathy Extremities: No Edema Skin: No Rash or Ulcers, No Nodules or Sclerosis Neurological: Alert and Oriented x 3, - - CN II-XII intact. Unsteady gait. Result Diagrams: 09/11/17 06:25 09/11/17 06:25 Assess/Plan/Problems-Billing Assessment: Patient is a 67yo male with a PMH significant for alcohol abuse for over 10 years who presented with symptoms consistent with withdrawal from alcohol as well as fpc abnormalities consistent with alcohol abuse. - Patient Problems (1) Alcohol use disorder, severe, dependence Current Visit: No Status: Acute Code(s): F10.20 - ALCOHOL DEPENDENCE, UNCOMPLICATED SNOMED Code(s): 300249172 Comment: Patient states he drinks 6 "tall ones" of hard liquor a day. Patient is tremulous and having diarrhea but otherwise has very few symptoms of withdrawal. Last drink less than 2 days ago and recent high alcohol level. (2) Alcohol withdrawal with inpatient treatment Current Visit: No Status: Acute Code(s): F10.239 - ALCOHOL DEPENDENCE WITH WITHDRAWAL, UNSPECIFIED SNOMED Code(s): 671826862 Comment: Continue on [facility] protocol, worst symptoms of withdrawal may still be to come. Alcohol level 383 at 2300 on 09/09. (3) Alcohol-induced depressive disorder with moderate or severe use disorder Current Visit: No Status: Acute Code(s): F10.24 - ALCOHOL DEPENDENCE WITH ALCOHOL-INDUCED MOOD DISORDER; F32.89 - OTHER SPECIFIED DEPRESSIVE EPISODES SNOMED Code(s): 64008528 Comment: Expressing passive suicidal ideation. Psychiatry will continue to follow while inpatient. No need for 1-1 monitoring at this time. (4) Tobacco abuse Current Visit: Yes Status: Acute Code(s): Z72.0 - TOBACCO USE SNOMED Code( s): 963795204 Comment: Last smoked 3 weeks ago, no craving for cigarettes. Nicotine patch and inhaler available PRN. (5) Full code status Current Visit: Yes Status: Acute Code(s): Z78.9 - OTHER SPECIFIED HEALTH STATUS SNOMED Code(s): 882227161 Comment: (6) DVT prophylaxis Current Visit: Yes Status: Acute Code(s): KYL0991 - SNOMED Code(s): 974828731 Comment: Heparin SubQ Status and Disposition: Patient is admitted inpatient. Patient will be evicted from his apartment. Will order PT/OT and assess for ability to care for self and consider assisted living or other options for safe discharge.
[2017-09-11] MEDS ORDERED: Mouth Piece, Nicotine* 1 EACH CARTRIDGE ONE (16:37)
[2017-09-11] MEDS: Acetaminophen TAB* 325 MG PO PRN (16:38)
[2017-09-11] MEDS: Nicotine Inhaler* 10 MG AMP INH PRN ×2 (16:39→20:34)
[2017-09-11] MEDS: Mouth Piece, Nicotine* 1 EACH CARTRIDGE INH ONE (16:43)
[2017-09-11] MEDS: Nicotine Patch Removal NOTE PATCH OFF SCH (20:08)
[2017-09-11] MEDS: LORazepam TAB(*) 1 MG PO SCH ×2 (20:42→23:49)
[2017-09-12] MEDS: LORazepam TAB(*) 1 MG PO SCH ×6 (02:30→17:45)
[2017-09-12] MEDS: Heparin VIAL(*) 5000 UNITS/ML VIAL (FIVE THOUSAND) SUBCUT SCH ×3 (06:13→21:49)
[2017-09-12 07:23] LABS: Add Diff/Slide Review? Slide Review Added; Comments Flag Yes; Hematocrit 34 % (42-52); Hemoglobin 11.8 g/dl (14.0-18.0); Mean Corpuscular HGB Conc 35 g/dl (31-36); Mean Corpuscular Hemoglobin 35 pg (27-31); Mean Corpuscular Volume 101 fL (80-94); Mean Platelet Volume 10 um3 (7.4-10.4); Red Blood Count 3.39 10^6/ul (4.0-5.4); Red Cell Distribution Width 14 % (10.5-15)
[2017-09-12 07:44] LABS: Albumin 4.1 g/dL (3.2-5.2); BUN/Creatinine Ratio 7.4 (8-20); EGFR African American 196.4 (>60); EGFR Non-African American 152.7 (>60); Globulin 3.3 g/dL (2-4); Potassium 2.9 mmol/L (3.5-5.0); Total Bilirubin 1.2 mg/dL (0.2-1.0); Total Protein 7.4 g/dL (6.4-8.9)
[2017-09-12 08:20] LABS: Platelet Morphology Large; RBC Morphology Normal (Normal)
[2017-09-12] MEDS: Folic Acid TAB* 1 MG PO SCH (08:23)
[2017-09-12] MEDS: Thiamine TAB* 100 MG TAB PO SCH (08:24)
[2017-09-12] MEDS: Multivitamins/Minerals TAB PO SCH (08:24)
[2017-09-12] MEDS: Potassium Chlor TAB* 20 MEQ TAB.ER PO SCH ×3 (08:24→20:23)
[2017-09-12] MEDS: Nicotine PATCH 14 MG/24 HR* PATCH TRANSDERM SCH (08:27)
[2017-09-12] MEDS ORDERED: Albuterol HFA INHALER* 8 gm MDI INH PRN (11:40)
[2017-09-12 12:13] LABS: Magnesium 1.1 mg/dL (1.9-2.7)
[2017-09-12] MEDS ORDERED: Magnesium Sulf 4 GM/100 ML IV* 4,000 MG/100 ML BAG IVPB ONE (13:05)
--- NOTE | 2017-09-12 13:42 | PN ---
Subjective Date of Service: 09/12/17 Interval History: Patient deteriorated in function significantly overnight and became impulsive, trying to get out of bed without assistance and making nonsensical statements. Patient endorsed auditory hallucinations and stated that there was a man yelling. Patient is still A/Ox3 but is otherwise rather incoherent. Patient denies any pain or other acute complaint. Family History: Unchanged from Admission Social History: Unchanged from Admission Past Medical History: Unchanged from Admission Objective Active Medications: Acetaminophen (Tylenol Tab*) 650 mg PO Q4H PRN PRN Reason: PAIN Last Admin: 09/11/17 16:38 Dose: 650 mg Albuterol (Ventolin Hfa Inhaler*) 1 puff INH Q4H PRN PRN Reason: SOB/WHEEZING Folic Acid (Folvite Tab*) 1 mg PO DAILY [facility] Last Admin: 09/12/17 08:23 Dose: 1 mg Heparin Sodium (Porcine) (Heparin Vial(*)) 5,000 units SUBCUT Q8HR [facility] Last Admin: 09/12/17 06:13 Dose: 5,000 units Magnesium Sulfate (Magnesium Sulf 4 Gm/100 Ml Iv*) 4,000 mg in 100 mls @ 33.333 mls/hr IVPB ONCE ONE Stop: 09/12/17 16:04 Lorazepam (Ativan Tab(*)) 0 - 6 mg PO .PER [facility] PROTOCOL [facility] PRN Reason: Protocol Last Admin: 09/12/17 11:00 Dose: 2 mg Multivitamins/Minerals (Theragran/Minerals Tab*) 1 tab PO DAILY [facility] Last Admin: 09/12/17 08:24 Dose: 1 tab Nicotine (Nicotine Inhaler*) 10 mg INH Q2H PRN PRN Reason: CRAVING Last Admin: 09/11/17 20:34 Dose: 10 mg Nicotine (Nicotine Patch 14 Mg/24 Hr*) 1 patch TRANSDERM DAILY [facility] Last Admin: 09/12/17 08:27 Dose: 1 patch Ondansetron HCl (Zofran Inj*) 4 mg IV Q6H PRN PRN Reason: NAUSEA Pharmacy Profile Note (Nicotine Patch Removal Note*) 1 note PATCH OFF 2100 [facility] Last Admin: 09/11/17 20:08 Dose: Not Given Potassium Chloride (Klor Con Er Tab*) 20 meq PO TID [facility] Last Admin: 09/12/17 08:24 Dose: 20 meq Thiamine HCl (Vitamin B-1 Tab*) 100 mg PO DAILY [facility] Last Admin: 09/12/17 08:24 Dose: 100 mg Vital Signs 09/11/17 09/11/17 09/11/17 14:05 15:41 16:20 Temperature 98.1 F 98.4 F 99.5 F Pulse Rate 74 79 81 Respiratory 20 18 22 Rate Blood Pressure 135/72 140/79 135/48 (mmHg) O2 Sat by Pulse 97 99 95 Oximetry 09/11/17 09/11/17 09/11/17 18:28 19:23 20:17 Temperature 100.8 F 98.5 F Pulse Rate 95 91 Respiratory 20 17 20 Rate Blood Pressure 145/77 143/73 (mmHg) O2 Sat by Pulse 97 97 Oximetry 09/11/17 09/11/17 09/11/17 20:42 21:57 22:42 Temperature 98.4 F Pulse Rate 88 Respiratory 18 20 16 Rate Blood Pressure 147/91 (mmHg) O2 Sat by Pulse 97 Oximetry 09/11/17 09/11/17 09/12/17 23:41 23:49 01:49 Temperature 99.6 F Pulse Rate 102 Respiratory 16 18 19 Rate Blood Pressure 145/85 (mmHg) O2 Sat by Pulse 97 Oximetry 09/12/17 09/12/17 09/12/17 02:14 02:30 04:01 Temperature Pulse Rate 115 86 Respiratory 16 19 16 Rate Blood Pressure 129/103 136/81 (mmHg) O2 Sat by Pulse 97 97 Oximetry 09/12/17 09/12/17 09/12/17 04:30 06:05 06:12 Temperature Pulse Rate 97 Respiratory 18 17 Rate Blood Pressure 145/95 (mmHg) O2 Sat by Pulse 98 Oximetry 09/12/17 09/12/17 09/12/17 08:00 08:06 08:12 Temperature 99.1 F Pulse Rate 101 Respiratory 20 20 20 Rate Blood Pressure 137/87 (mmHg) O2 Sat by Pulse 96 Oximetry 09/12/17 09/12/17 09/12/17 08:21 10:16 10:21 Temperature 97.3 F Pulse Rate 108 Respiratory 20 18 Rate Blood Pressure 138/92 (mmHg) O2 Sat by Pulse 97 Oximetry 09/12/17 11:00 Temperature Pulse Rate Respiratory 18 Rate Blood Pressure (mmHg) O2 Sat by Pulse Oximetry Oxygen Devices in Use Now: None Appearance: Patient is a 67yo male who appears older than stated age, is obviously emaciated, disheveled and tremulous, and is sitting in the bed in NAD. Eyes: No Scleral Icterus, PERRLA Ears/Nose/Mouth/Throat: Clear Oropharnyx, Mucous Membranes Moist, - - Upper dentures. Neck: NL Appearance and Movements; NL JVP, Trachea Midline Respiratory: Symmetrical Chest Expansion and Respiratory Effort, Clear to Auscultation Cardiovascular: NL Sounds; No Murmurs; No JVD, RRR, No Edema Abdominal: NL Sounds; No Tenderness; No Distention, No Hepatosplenomegaly Lymphatic: No Cervical Adenopathy Skin: No Rash or Ulcers, No Nodules or Sclerosis Neurological: Alert and Oriented x 3, NL Muscle Strength and Tone Result Diagrams: 09/12/17 06:51 09/12/17 06:51 Assess/Plan/Problems-Billing Assessment: Patient is a 67yo male with a PMH significant for alcohol abuse for over 10 years who presented with symptoms consistent with withdrawal from alcohol as well as halfway abnormalities consistent with alcohol abuse. - Patient Problems (1) Alcohol use disorder, severe, dependence Current Visit: No Status: Acute Code(s): F10.20 - ALCOHOL DEPENDENCE, UNCOMPLICATED SNOMED Code(s): 749115070 Comment: Patient states he drinks 6 "tall ones" of hard liquor a day. Is unable to take care of himself and is in danger of being evicted from [facility]. Looking into [place] or other assisted living. Elevated LFTs, Macrocytic anemia, Elevated LFTs, hypokalemia and hypomagnesemia all related to alcohol use and decreased nutrition. (2) Alcohol withdrawal with inpatient treatment Current Visit: No Status: Acute Code(s): F10.239 - ALCOHOL DEPENDENCE WITH WITHDRAWAL, UNSPECIFIED SNOMED Code(s): 665187939 Comment: Continue on WAM protocol, worst symptoms of withdrawal may still be to come. Patient's tremulousness has increased and is having diarrhea, confusion, tachycardia, and hallucinations. Scoring high on WAM scale. Has received 10mg of ativan today. 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 Psychiatry will continue to follow while inpatient. No need for 1-1 monitoring at this time. (4) Tobacco abuse Current Visit: Yes Status: Acute Code(s): Z72.0 - TOBACCO USE SNOMED Code( s): 894427898 Comment: Last smoked 3 weeks ago. Nicotine patch and inhaler available PRN. (5) Full code status Current Visit: Yes Status: Acute Code(s): Z78.9 - OTHER SPECIFIED HEALTH STATUS SNOMED Code(s): 830988992 Comment: (6) DVT prophylaxis Current Visit: Yes Status: Acute Code(s): [id number] - SNOMED Code(s): 075743774 Comment: Heparin SubQ (7) Hypokalemia Current Visit: Yes Status: Acute Code(s): E87.6 - HYPOKALEMIA SNOMED Code( s): 06038368 Comment: Stable at 2.9 despite 60meq repletion. Will continue to monitor and replace after magnesium replacement. (8) Hypomagnesemia Current Visit: Yes Status: Acute Code(s): E83.42 - HYPOMAGNESEMIA SNOMED Code(s): 297585471 Comment: 1.1 when checked today. 4g IV given, will recheck this evening. EKG shows QTc 469 with single PVC. Status and Disposition: Patient is admitted inpatient. Patient will be evicted from his apartment. Will order PT/OT and assess for ability to care for self and consider assisted living or other options for safe discharge.
[2017-09-12] MEDS: Mouth Piece, Nicotine* 1 EACH CARTRIDGE INH ONE (17:06)
[2017-09-12] MEDS: Acetaminophen TAB* 325 MG PO PRN (19:36)
[2017-09-12] MEDS: Nicotine Patch Removal NOTE PATCH OFF SCH (20:28)
[2017-09-13] MEDS: Heparin VIAL(*) 5000 UNITS/ML VIAL (FIVE THOUSAND) SUBCUT SCH ×3 (06:16→20:20)
[2017-09-13 06:32] LABS: Hematocrit 37 % (42-52); Hemoglobin 12.4 g/dl (14.0-18.0); Mean Corpuscular HGB Conc 34 g/dl (31-36); Mean Corpuscular Hemoglobin 34 pg (27-31); Mean Corpuscular Volume 101 fL (80-94); Red Blood Count 3.63 10^6/ul (4.0-5.4); Red Cell Distribution Width 15 % (10.5-15)
[2017-09-13 06:34] LABS: Comments Flag Yes
[2017-09-13 06:47] LABS: Albumin 4.1 g/dL (3.2-5.2); BUN/Creatinine Ratio 11.8 (8-20); Calcium 9.5 mg/dL (8.6-10.3); EGFR African American 209.8 (>60); EGFR Non-African American 163.1 (>60); Globulin 3.5 g/dL (2-4); Magnesium 1.9 mg/dL (1.9-2.7); Potassium 3.6 mmol/L (3.5-5.0); Total Bilirubin 1.1 mg/dL (0.2-1.0); Total Protein 7.6 g/dL (6.4-8.9)
[2017-09-13 06:53] LABS: Add Diff/Slide Review? Slide Review Added
[2017-09-13 07:51] LABS: White Blood Count 6.4 10^3/ul (3.5-10.8)
[2017-09-13] MEDS: Nicotine PATCH 14 MG/24 HR* PATCH TRANSDERM SCH (09:52)
[2017-09-13] MEDS: Multivitamins/Minerals TAB PO SCH (09:52)
[2017-09-13] MEDS: Potassium Chlor TAB* 20 MEQ TAB.ER PO SCH ×3 (09:52→20:20)
[2017-09-13] MEDS: Folic Acid TAB* 1 MG PO SCH (09:52)
[2017-09-13] MEDS: Thiamine TAB* 100 MG TAB PO SCH (09:52)
[2017-09-13] MEDS: LORazepam TAB(*) 1 MG PO SCH (10:22)
--- NOTE | 2017-09-13 16:01 | PN ---
Subjective Date of Service: 09/13/17 Interval History: Called because patient was less responsive despite not getting ativan since last night. Ammonia ordered. Patient drowsy but arousable on exam. Patient A/ Ox3 but still slightly confused. Denies complaints except aching pain in his back which is chronic and without radicular symptoms. No other complaints. Family History: Unchanged from Admission Social History: Unchanged from Admission Past Medical History: Unchanged from Admission Objective Active Medications: Acetaminophen (Tylenol Tab*) 650 mg PO Q4H PRN PRN Reason: PAIN Last Admin: 09/12/17 19:36 Dose: 650 mg Albuterol (Ventolin Hfa Inhaler*) 1 puff INH Q4H PRN PRN Reason: SOB/WHEEZING Folic Acid (Folvite Tab*) 1 mg PO DAILY [facility] Last Admin: 09/13/17 09:52 Dose: 1 mg Heparin Sodium (Porcine) (Heparin Vial(*)) 5,000 units SUBCUT Q8HR [facility] Last Admin: 09/13/17 14:11 Dose: 5,000 units Lorazepam (Ativan Tab(*)) 0 - [address] [facility] PROTOCOL [facility] PRN Reason: Protocol Last Admin: 09/13/17 10:22 Dose: 2 mg Multivitamins/Minerals (Theragran/Minerals Tab*) 1 tab PO DAILY [facility] Last Admin: 09/13/17 09:52 Dose: 1 tab Nicotine (Nicotine Inhaler*) 10 mg INH Q2H PRN PRN Reason: CRAVING Last Admin: 09/11/17 20:34 Dose: 10 mg Nicotine (Nicotine Patch 14 Mg/24 Hr*) 1 patch TRANSDERM DAILY [facility] Last Admin: 09/13/17 09:52 Dose: 1 patch Ondansetron HCl (Zofran Inj*) 4 mg IV Q6H PRN PRN Reason: NAUSEA Pharmacy Profile Note (Nicotine Patch Removal Note*) 1 note PATCH OFF 2100 [facility] Last Admin: 09/12/17 20:28 Dose: 1 note Potassium Chloride (Klor Con Er Tab*) 20 meq PO TID [facility] Last Admin: 09/13/17 14:11 Dose: 20 meq Thiamine HCl (Vitamin B-1 Tab*) 100 mg PO DAILY [facility] Last Admin: 09/13/17 09:52 Dose: 100 mg Vital Signs 09/12/17 09/12/17 09/12/17 16:11 16:45 17:45 Temperature 98.7 F Pulse Rate 113 Respiratory 16 18 18 Rate Blood Pressure 128/95 (mmHg) O2 Sat by Pulse 96 Oximetry 09/12/17 09/12/17 09/12/17 18:02 18:42 19:43 Temperature 98.8 F 98.8 F Pulse Rate 112 129 Respiratory 18 20 18 Rate Blood Pressure 126/84 136/93 (mmHg) O2 Sat by Pulse 97 97 Oximetry 09/12/17 09/12/17 09/12/17 19:45 22:16 22:46 Temperature 97.4 F Pulse Rate 104 101 Respiratory 18 20 Rate Blood Pressure 137/92 143/96 (mmHg) O2 Sat by Pulse 98 97 Oximetry 09/13/17 09/13/17 09/13/17 02:19 06:18 07:27 Temperature 98.7 F Pulse Rate 94 101 103 Respiratory 17 Rate Blood Pressure 146/94 136/92 143/95 (mmHg) O2 Sat by Pulse 99 97 97 Oximetry 09/13/17 09/13/17 09/13/17 08:00 10:00 10:08 Temperature 98.4 F Pulse Rate 126 Respiratory 16 18 16 Rate Blood Pressure 109/76 (mmHg) O2 Sat by Pulse 96 Oximetry 09/13/17 09/13/17 09/13/17 10:22 13:56 14:29 Temperature 98.9 F Pulse Rate 136 Respiratory 16 16 12 Rate Blood Pressure 92/70 (mmHg) O2 Sat by Pulse 97 Oximetry Oxygen Devices in Use Now: None Appearance: Patient is a 67yo male who appears older than stated age, is disheveled, tremulous, and is sitting in the bed in NAD. Eyes: No Scleral Icterus, PERRLA Ears/Nose/Mouth/Throat: Clear Oropharnyx, Mucous Membranes Moist, - - Upper dentures. Neck: NL Appearance and Movements; NL JVP, Trachea Midline Respiratory: Symmetrical Chest Expansion and Respiratory Effort, Clear to Auscultation Cardiovascular: NL Sounds; No Murmurs; No JVD, RRR, No Edema Abdominal: NL Sounds; No Tenderness; No Distention, No Hepatosplenomegaly Lymphatic: No Cervical Adenopathy Extremities: No Edema Skin: No Rash or Ulcers, No Nodules or Sclerosis Neurological: - - CN II-XII intact. A/Ox3, slight tremor worse with intention and decreased from previous exam. 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 - Patient Problems (1) Alcohol use disorder, severe, dependence Current Visit: No Status: Acute Code(s): F10.20 - ALCOHOL DEPENDENCE, UNCOMPLICATED SNOMED Code(s): 152251010 Comment: Patient states he drinks 6 "tall ones" of hard liquor a day. Is unable to take care of himself and is in danger of being evicted from [facility]. Looking into [place] or other assisted living. Elevated LFTs, Macrocytic anemia, Elevated LFTs, hypokalemia and hypomagnesemia all related to alcohol use and decreased nutrition. Improving in the hospital with supplmentation, eating well. (2) Alcohol withdrawal with inpatient treatment Current Visit: No Status: Acute Code(s): F10.239 - ALCOHOL DEPENDENCE WITH WITHDRAWAL, UNSPECIFIED SNOMED Code(s): 922156798 Comment: Continue on WAM protocol, Still scoring. Patient's tremulousness has decreased and is having confusion and tachycardia. Received 2mg of ativan today. 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 Related to possible exiction, will find another place to live. Psychiatry will continue to follow while inpatient. No need for 1-1 monitoring at this time. (4) Tobacco abuse Current Visit: Yes Status: Acute Code(s): Z72.0 - TOBACCO USE SNOMED Code( s): 611344572 Comment: Last smoked 3 weeks ago. Nicotine patch and inhaler available PRN. (5) Full code status Current Visit: Yes Status: Acute Code(s): Z78.9 - OTHER SPECIFIED HEALTH STATUS SNOMED Code(s): 473790936 Comment: (6) DVT prophylaxis Current Visit: Yes Status: Acute Code(s): XKB0570 - SNOMED Code(s): 671590299 Comment: Heparin SubQ (7) Hypokalemia Current Visit: Yes Status: Acute Code(s): E87.6 - HYPOKALEMIA SNOMED Code( s): 67600389 Comment: Resolved, 3.6 this morning. (8) Hypomagnesemia Current Visit: Yes Status: Acute Code(s): E83.42 - HYPOMAGNESEMIA SNOMED Code(s): 685791049 Comment: Resolved, 1.9 this morning. Will continue to monitor. Reflexes significantly decreased on exam today. Status and Disposition: Patient is admitted inpatient. Patient will be evicted from his apartment. Will order PT/OT and assess for ability to care for self and consider assisted living or other options for safe discharge.
[2017-09-13] MEDS ORDERED: NS 0.9% 1000 ML* 1,000 ML IV SCH (18:45)
[2017-09-13] MEDS: Nicotine Patch Removal NOTE PATCH OFF SCH (20:20)
[2017-09-14] MEDS: LORazepam TAB(*) 1 MG PO SCH (03:02)
[2017-09-14] MEDS: Heparin VIAL(*) 5000 UNITS/ML VIAL (FIVE THOUSAND) SUBCUT SCH ×3 (05:53→20:32)
[2017-09-14 08:09] LABS: Add Diff/Slide Review? Slide Review Added; Comments Flag Yes; Hematocrit 34 % (42-52); Hemoglobin 11.4 g/dl (14.0-18.0); Mean Corpuscular HGB Conc 34 g/dl (31-36); Mean Corpuscular Hemoglobin 34 pg (27-31); Mean Corpuscular Volume 102 fL (80-94); Mean Platelet Volume 10 um3 (7.4-10.4); Red Blood Count 3.32 10^6/ul (4.0-5.4); Red Cell Distribution Width 14 % (10.5-15); White Blood Count 6.1 10^3/ul (3.5-10.8)
--- NOTE | 2017-09-14 08:09 | PN ---
Subjective Date of Service: 09/14/17 Interval History: Pt states he is doing ok. His biggest complaint is that he feels drowsy. He denies any pain. He does not think he is withdrawing any more. He states he would be interested in going to rehab for PT only after d/c from the hospital. Objective Active Medications: Acetaminophen (Tylenol Tab*) 650 mg PO Q4H PRN PRN Reason: PAIN Last Admin: 09/12/17 19:36 Dose: 650 mg Albuterol (Ventolin Hfa Inhaler*) 1 puff INH Q4H PRN PRN Reason: SOB/WHEEZING Folic Acid (Folvite Tab*) 1 mg PO DAILY [facility] Last Admin: 09/13/17 09:52 Dose: 1 mg Heparin Sodium (Porcine) (Heparin Vial(*)) 5,000 units SUBCUT Q8HR [facility] Last Admin: 09/14/17 05:53 Dose: 5,000 units Sodium Chloride (Ns 0.9% 1000 Ml*) 1,000 mls @ 75 mls/hr IV PER RATE [facility] Last Admin: 09/13/17 20:21 Dose: 75 mls/hr Lorazepam (Ativan Tab(*)) 0 - 6 mg PO .PER [facility] PROTOCOL [facility] PRN Reason: Protocol Last Admin: 09/14/17 03:02 Dose: 1 mg Multivitamins/Minerals (Theragran/Minerals Tab*) 1 tab PO DAILY [facility] Last Admin: 09/13/17 09:52 Dose: 1 tab Nicotine (Nicotine Inhaler*) 10 mg INH Q2H PRN PRN Reason: CRAVING Last Admin: 09/11/17 20:34 Dose: 10 mg Nicotine (Nicotine Patch 14 Mg/24 Hr*) 1 patch TRANSDERM DAILY [facility] Last Admin: 09/13/17 09:52 Dose: 1 patch Ondansetron HCl (Zofran Inj*) 4 mg IV Q6H PRN PRN Reason: NAUSEA Pharmacy Profile Note (Nicotine Patch Removal Note*) 1 note PATCH OFF 2100 [facility] Last Admin: 09/13/17 20:20 Dose: 1 note Potassium Chloride (Klor Con Er Tab*) 20 meq PO TID [facility] Last Admin: 09/13/17 20:20 Dose: 20 meq Thiamine HCl (Vitamin B-1 Tab*) 100 mg PO DAILY [facility] Last Admin: 09/13/17 09:52 Dose: 100 mg Vital Signs 09/13/17 09/13/17 09/13/17 10:00 10:08 10:22 Temperature 98.4 F Pulse Rate 126 Respiratory 18 16 16 Rate Blood Pressure 109/76 (mmHg) O2 Sat by Pulse 96 Oximetry 09/13/17 09/13/17 09/13/17 12:22 13:56 14:29 Temperature 98.9 F Pulse Rate 136 Respiratory 16 16 12 Rate Blood Pressure 92/70 (mmHg) O2 Sat by Pulse 97 Oximetry 09/13/17 09/13/17 09/13/17 16:44 18:00 18:08 Temperature 98.1 F Pulse Rate 132 Respiratory 16 18 16 Rate Blood Pressure 108/84 (mmHg) O2 Sat by Pulse 98 Oximetry 09/13/17 09/13/17 09/14/17 20:00 22:09 01:51 Temperature 98.6 F 98.8 F Pulse Rate 120 111 Respiratory 16 22 14 Rate Blood Pressure 113/75 137/85 (mmHg) O2 Sat by Pulse 98 98 Oximetry 09/14/17 09/14/17 03:02 06:00 Temperature 98.2 F Pulse Rate 106 Respiratory 16 Rate Blood Pressure 127/83 (mmHg) O2 Sat by Pulse 99 Oximetry Oxygen Devices in Use Now: None Appearance: Middle aged disheveled male sitting in a chair, sleeping, awakens to voice and light touch, NAD Eyes: No Scleral Icterus Ears/Nose/Mouth/Throat: Mucous Membranes Moist Respiratory: Symmetrical Chest Expansion and Respiratory Effort, Clear to Auscultation Cardiovascular: NL Sounds; No Murmurs; No JVD, No Edema, - - mildly tachycardic Abdominal: NL Sounds; No Tenderness; No Distention Extremities: No Clubbing, Cyanosis Skin: No Rash or Ulcers, No Nodules or Sclerosis Neurological: - - alert, oriented to situation Result Diagrams: 09/14/17 07:20 09/13/17 06:13 Assess/Plan/Problems-Billing Mr Doran is a 67yo male with a PMHx significant for alcohol abuse for over 10 years who presented with symptoms consistent with withdrawal from alcohol as well as terminal gauger abnormalities consistent with alcohol abuse. - Patient Problems (1) Alcohol withdrawal with inpatient treatment Current Visit: Yes Status: Acute Code(s): F10.239 - ALCOHOL DEPENDENCE WITH WITHDRAWAL, UNSPECIFIED SNOMED Code(s): 905457467 Comment: The patient feels he is no longer withdrawing. Will continue on WAM protocol but change evals to q6hr. The patient remains tachycardic but I am not convinced it is secondary to withdrawal but for another reason. Will continue to follow. (2) Alcoholic hepatitis Current Visit: Yes Status: Acute Code(s): K70.10 - ALCOHOLIC HEPATITIS WITHOUT ASCITES SNOMED Code(s): 450755633 Comment: The patient appears to have mild alcoholic hepatitis. LFTs remain mildly elevated. Follow intermittently. (3) Anemia Current Visit: Yes Status: Acute Code(s): D64.9 - ANEMIA, UNSPECIFIED SNOMED Code(s): 979980894 Comment: Pt is anemic and thrombocytopenic likley from EtOH use. Check iron, B12 and folate levels. Thrombocytopenia slightly improved today. (4) Alcohol-induced depressive disorder with moderate or severe use disorder Current Visit: Yes Status: Acute Code(s): F10.24 - ALCOHOL DEPENDENCE WITH ALCOHOL-INDUCED MOOD DISORDER; F32.89 - OTHER SPECIFIED DEPRESSIVE EPISODES SNOMED Code(s): 62509094 Comment: No suicidal ideation. (5) Alcohol use disorder, severe, dependence Current Visit: Yes Status: Acute Code(s): F10.20 - ALCOHOL DEPENDENCE, UNCOMPLICATED SNOMED Code(s): 278557704 Comment: Likely anemia, thrombocytopenia, hypokalemia and hypomagnesemia all related to EtOH use. Additionally the patient seems somewhat foggy and I question if he may have encephalopathy from terminal gauger EtOH abuse. Continue MVI and thiamine. (6) Hypokalemia Current Visit: Yes Status: Acute Code(s): E87.6 - HYPOKALEMIA SNOMED Code( s): 12710698 Comment: K improved after aggressive K supplementation. Repeat level pending for this AM. Replace as needed. (7) Hypomagnesemia Current Visit: Yes Status: Acute Code(s): E83.42 - HYPOMAGNESEMIA SNOMED Code(s): 621457820 Comment: Repeat Mg level pending for this AM. (8) Tobacco abuse Current Visit: Yes Status: Acute Code(s): Z72.0 - TOBACCO USE SNOMED Code( s): 592772121 Comment: Continue nicotine patch and inhaler as needed. (9) DVT prophylaxis Current Visit: Yes Status: Acute Code(s): RZK2379 - SNOMED Code(s): 471944658 Comment: SQ heparin (10) Full code status Current Visit: Yes Status: Acute Code(s): Z78.9 - OTHER SPECIFIED HEALTH STATUS SNOMED Code(s): 869734629 Comment: Status and Disposition: .
[2017-09-14 08:22] LABS: Albumin 4.2 g/dL (3.2-5.2); BUN/Creatinine Ratio 26.6 (8-20); Calcium 9.6 mg/dL (8.6-10.3); EGFR African American 161.4 (>60); EGFR Non-African American 125.5 (>60); Globulin 3.3 g/dL (2-4); Magnesium 1.9 mg/dL (1.9-2.7); Total Protein 7.5 g/dL (6.4-8.9)
[2017-09-14] MEDS: Nicotine PATCH 14 MG/24 HR* PATCH TRANSDERM SCH (09:22)
[2017-09-14] MEDS: Potassium Chlor TAB* 20 MEQ TAB.ER PO SCH ×3 (09:23→20:33)
[2017-09-14] MEDS: Multivitamins/Minerals TAB PO SCH (09:23)
[2017-09-14] MEDS: Folic Acid TAB* 1 MG PO SCH (09:23)
[2017-09-14] MEDS: Thiamine TAB* 100 MG TAB PO SCH (09:23)
[2017-09-14] MEDS: Nicotine Patch Removal NOTE PATCH OFF SCH (20:34)
[2017-09-14] MEDS: CMCS Melatonin (NF) 3 MG TAB PO PRN (22:51)
[2017-09-14] MEDS: Acetaminophen TAB* 325 MG PO PRN (22:52)
[2017-09-15] MEDS ORDERED: LORazepam INJ* 2 MG/ML 1 ML VIAL IV ONE (00:01)
[2017-09-15] MEDS: Heparin VIAL(*) 5000 UNITS/ML VIAL (FIVE THOUSAND) SUBCUT SCH ×3 (06:28→23:27)
[2017-09-15] MEDS: Potassium Chlor TAB* 20 MEQ TAB.ER PO SCH (07:46)
[2017-09-15] MEDS: Folic Acid TAB* 1 MG PO SCH (07:46)
[2017-09-15] MEDS: Thiamine TAB* 100 MG TAB PO SCH (07:46)
[2017-09-15] MEDS: Multivitamins/Minerals TAB PO SCH (07:46)
[2017-09-15] MEDS: Nicotine PATCH 14 MG/24 HR* PATCH TRANSDERM SCH (07:47)
[2017-09-15 08:59] LABS: Ferritin 100.7 ng/mL (24-336)
[2017-09-15 09:03] LABS: Folate 18.46 ng/mL (>3.99)
[2017-09-15] MEDS ORDERED: Albuterol HFA INHALER* 8 gm MDI INH PRN (12:32)
--- NOTE | 2017-09-15 13:01 | PN ---
Subjective Date of Service: 09/15/17 Interval History: Pt is feeling ok today. He states he had a good nap this AM but did not sleep well overnight as he was awakened frequently for vitals/WAM scoring. He denies any pain. Family History: Unchanged from Admission Social History: Unchanged from Admission Past Medical History: Unchanged from Admission Objective Active Medications: Acetaminophen (Tylenol Tab*) 650 mg PO Q4H PRN PRN Reason: PAIN Last Admin: 09/14/17 22:52 Dose: 650 mg Albuterol (Ventolin Hfa Inhaler*) 2 puff INH Q4H PRN PRN Reason: SOB/WHEEZING Folic Acid (Folvite Tab*) 1 mg PO DAILY [facility] Last Admin: 09/15/17 07:46 Dose: 1 mg Heparin Sodium (Porcine) (Heparin Vial(*)) 5,000 units SUBCUT Q8HR [facility] Last Admin: 09/15/17 06:28 Dose: 5,000 units Melatonin (Melatonin (Nf)) 3 mg PO BEDTIME PRN; Protocol PRN Reason: Sleep Last Admin: 09/14/17 22:51 Dose: 3 mg Multivitamins/Minerals (Theragran/Minerals Tab*) 1 tab PO DAILY [facility] Last Admin: 09/15/17 07:46 Dose: 1 tab Nicotine (Nicotine Inhaler*) 10 mg INH Q2H PRN PRN Reason: CRAVING Last Admin: 09/11/17 20:34 Dose: 10 mg Ondansetron HCl (Zofran Inj*) 4 mg IV Q6H PRN PRN Reason: NAUSEA Thiamine HCl (Vitamin B-1 Tab*) 100 mg PO DAILY [facility] Last Admin: 09/15/17 07:46 Dose: 100 mg Vital Signs 09/14/17 09/14/17 09/15/17 18:16 20:35 00:02 Temperature 98.8 F 98.2 F Pulse Rate 104 100 Respiratory 20 20 16 Rate Blood Pressure 140/85 135/80 (mmHg) O2 Sat by Pulse 100 98 Oximetry 09/15/17 09/15/17 09/15/17 00:35 01:35 06:35 Temperature 98.5 F Pulse Rate 90 Respiratory 16 16 16 Rate Blood Pressure 130/74 (mmHg) O2 Sat by Pulse 98 Oximetry 09/15/17 09/15/17 07:20 08:00 Temperature Pulse Rate Respiratory 18 18 Rate Blood Pressure (mmHg) O2 Sat by Pulse Oximetry Oxygen Devices in Use Now: None Appearance: Middle aged male sitting in a chair, NAD Eyes: No Scleral Icterus Ears/Nose/Mouth/Throat: Mucous Membranes Moist Respiratory: Symmetrical Chest Expansion and Respiratory Effort, Clear to Auscultation Cardiovascular: NL Sounds; No Murmurs; No JVD, RRR, No Edema Abdominal: NL Sounds; No Tenderness; No Distention Extremities: No Clubbing, Cyanosis Skin: No Rash or Ulcers, No Nodules or Sclerosis Neurological: - - improved mental status, less drowsy than yesterday Result Diagrams: 09/14/17 07:20 09/14/17 07:20 Assess/Plan/Problems-Billing Mr Doran is a 67yo male with a PMHx significant for alcohol abuse for over 10 years who presented with symptoms consistent with withdrawal from alcohol as well as residential abnormalities consistent with alcohol abuse. - Patient Problems (1) Alcohol withdrawal with inpatient treatment Current Visit: Yes Status: Acute Code(s): F10.239 - ALCOHOL DEPENDENCE WITH WITHDRAWAL, UNSPECIFIED SNOMED Code(s): 686460823 Comment: Will stop WAM scoring as pt is no longer requiring ativan. Tachycardia has resolved. Will work with case management tomorrow for plan going forward. (2) Alcoholic hepatitis Current Visit: Yes Status: Acute Code(s): K70.10 - ALCOHOLIC HEPATITIS WITHOUT ASCITES SNOMED Code(s): 222495426 Comment: Resolved. (3) Anemia Current Visit: Yes Status: Acute Code(s): D64.9 - ANEMIA, UNSPECIFIED SNOMED Code(s): 006267772 Comment: Pt is anemic and thrombocytopenic likley from EtOH use. Will start iron supplementation as his % iron saturation and ferritin are low. B12 low normal. Will start supplementation for that as well. (4) Alcohol-induced depressive disorder with moderate or severe use disorder Current Visit: Yes Status: Acute Code(s): F10.24 - ALCOHOL DEPENDENCE WITH ALCOHOL-INDUCED MOOD DISORDER; F32.89 - OTHER SPECIFIED DEPRESSIVE EPISODES SNOMED Code(s): 36463704 Comment: No suicidal ideation. (5) Hypokalemia Current Visit: Yes Status: Acute Code(s): E87.6 - HYPOKALEMIA SNOMED Code( s): 35710120 Comment: K improved after aggressive K supplementation. Repeat level pending for this AM. Replace as needed. (6) Hypomagnesemia Current Visit: Yes Status: Acute Code(s): E83.42 - HYPOMAGNESEMIA SNOMED Code(s): 394141152 Comment: Mg in good range. (7) Tobacco abuse Current Visit: Yes Status: Acute Code(s): Z72.0 - TOBACCO USE SNOMED Code( s): 266441701 Comment: Stop nicotine patch. (8) DVT prophylaxis Current Visit: Yes Status: Acute Code(s): LOD9007 - SNOMED Code(s): 802771781 Comment: SQ heparin (9) Full code status Current Visit: Yes Status: Acute Code(s): Z78.9 - OTHER SPECIFIED HEALTH STATUS SNOMED Code(s): 017841685 Comment: Status and Disposition: .
[2017-09-15] MEDS ORDERED: LORazepam INJ* 2 MG/ML 1 ML VIAL ONE (17:50)
[2017-09-15] MEDS ORDERED: LORazepam TAB(*) 0.5 MG PO PRN (18:14)
[2017-09-15] MEDS ORDERED: LORazepam INJ* 2 MG/ML 1 ML VIAL IV PUSH PRN (18:14)
--- NOTE | 2017-09-15 18:16 | PN ---
Progress Note - Progress Note Date of Service: 09/15/17 Note: CAT call for seizure. Pt was reportedly alert and doing well this afternoon. Ate dinner, was reading and suddenly found to be having tonic clonic seizure. Ativan 0.5mg IV given. Slow to come around. Pt transferred to ICU. ? late EtOH withdrawal seizure vs other cause of seizure. Plan on full set of labs now and CT brain as it has not yet been imaged. EEG tomorrow. PRN ativan for seizures, resume WAM protocol with standing valium. Will discuss with neurology tomorrow.
[2017-09-15 18:56] LABS: Albumin 4.5 g/dL (3.2-5.2); BUN/Creatinine Ratio 14.1 (8-20); Calcium 10.3 mg/dL (8.6-10.3); EGFR African American 143.2 (>60); EGFR Non-African American 111.3 (>60); Globulin 3.7 g/dL (2-4); Total Bilirubin 0.9 mg/dL (0.2-1.0); Total Protein 8.2 g/dL (6.4-8.9); Troponin I 0.01 ng/mL (<0.04)
[2017-09-15 19:21] LABS: Hematocrit 35 % (42-52); Hemoglobin 11.6 g/dl (14.0-18.0); Mean Corpuscular HGB Conc 33 g/dl (31-36); Mean Corpuscular Hemoglobin 34 pg (27-31); Mean Platelet Volume 10 um3 (7.4-10.4); Red Blood Count 3.38 10^6/ul (4.0-5.4); Red Cell Distribution Width 15 % (10.5-15); White Blood Count 8.8 10^3/ul (3.5-10.8)
[2017-09-15 19:25] LABS: Mean Corpuscular Volume 104 fL (80-94)
--- NOTE | 2017-09-15 20:08 | RAD ---
HISTORY: New seizure COMPARISONS: None TECHNIQUE: Multiple contiguous axial CT scans were obtained of the head without intravenous contrast. FINDINGS: HEMORRHAGE/INFARCT: There is no hemorrhage or acute infarct. MASSES/SHIFT: There is no mass or shift. EXTRA-AXIAL SPACES: There are no extra-axial fluid collections. SULCI AND VENTRICLES: There is diffuse and proportional enlargement of the sulci and ventricles. CEREBRUM: There are no focal parenchymal abnormalities. BRAINSTEM: There are no focal parenchymal abnormalities. CEREBELLUM: There are no focal parenchymal abnormalities. VESSELS: The vessels are grossly normal. PARANASAL SINUSES: The paranasal sinuses are clear. ORBITS: The orbits are unremarkable. BONES AND SOFT TISSUE: No bone or soft tissue abnormalities are noted. OTHER: None IMPRESSION: NO ACUTE INTRACRANIAL PATHOLOGY. DIFFUSE INVOLUTIONAL CHANGE
[2017-09-15] MEDS: Diazepam TAB(*) 2 MG PO SCH (20:48)
[2017-09-15] MEDS: CMCS Melatonin (NF) 3 MG TAB PO PRN (20:48)
[2017-09-15] MEDS: Acetaminophen TAB* 325 MG PO PRN (20:49)
[2017-09-16 06:09] LABS: BUN/Creatinine Ratio 12.1 (8-20); Calcium 9.6 mg/dL (8.6-10.3); EGFR African American 180.8 (>60); EGFR Non-African American 140.6 (>60); Potassium 3.5 mmol/L (3.5-5.0)
[2017-09-16] MEDS: Heparin VIAL(*) 5000 UNITS/ML VIAL (FIVE THOUSAND) SUBCUT SCH ×3 (07:39→20:43)
[2017-09-16] MEDS: Diazepam TAB(*) 2 MG PO SCH ×3 (07:39→20:42)
[2017-09-16] MEDS: Cyanocobalamin TAB* 500 MCG PO SCH (09:34)
[2017-09-16] MEDS: Folic Acid TAB* 1 MG PO SCH (09:35)
[2017-09-16] MEDS: Thiamine TAB* 100 MG TAB PO SCH (09:35)
[2017-09-16] MEDS: Multivitamins/Minerals TAB PO SCH (09:35)
[2017-09-16] MEDS: Ferrous Sulfate TAB* 325 MG PO SCH (09:35)
[2017-09-16] MEDS ORDERED: Mouth Piece, Nicotine* 1 EACH CARTRIDGE ONE (12:53)
--- NOTE | 2017-09-16 12:57 | PN ---
Subjective Date of Service: 09/16/17 Interval History: Pt is feeling well this AM. He states last evening prior to the seizure he felt nauseous, confused and like peoples voices were jumbled. He states he felt scared when that happened and he tried to lie down but then had the seizure. He has no complaints today. He would like a nicotine patch today. Family History: Unchanged from Admission Social History: Unchanged from Admission Past Medical History: Unchanged from Admission Objective Active Medications: Acetaminophen (Tylenol Tab*) 650 mg PO Q4H PRN PRN Reason: PAIN Last Admin: 09/15/17 20:49 Dose: 650 mg Albuterol (Ventolin Hfa Inhaler*) 2 puff INH Q4H PRN PRN Reason: SOB/WHEEZING Cyanocobalamin (Vitamin B12 Tab*) 500 mcg PO DAILY [facility] Last Admin: 09/16/17 09:34 Dose: 500 mcg Diazepam (Valium Tab(*)) 2 mg PO Q8HR [facility] Last Admin: 09/16/17 07:39 Dose: 2 mg Ferrous Sulfate (Ferrous Sulfate Tab*) 325 mg PO DAILY [facility] Last Admin: 09/16/17 09:35 Dose: 325 mg Folic Acid (Folvite Tab*) 1 mg PO DAILY [facility] Last Admin: 09/16/17 09:35 Dose: 1 mg Heparin Sodium (Porcine) (Heparin Vial(*)) 5,000 units SUBCUT Q8HR [facility] Last Admin: 09/16/17 07:39 Dose: 5,000 units Lorazepam (Ativan Inj*) 1 mg IV PUSH Q6H PRN PRN Reason: seizure >1min Lorazepam (Ativan Tab(*)) 0 mg PO Q4H PRN; Protocol PRN Reason: ANXIETY Melatonin (Melatonin (Nf)) 3 mg PO BEDTIME PRN; Protocol PRN Reason: Sleep Last Admin: 09/15/17 20:48 Dose: 3 mg Multivitamins/Minerals (Theragran/Minerals Tab*) 1 tab PO DAILY [facility] Last Admin: 09/16/17 09:35 Dose: 1 tab Nicotine (Nicotine Inhaler*) 10 mg INH Q2H PRN PRN Reason: CRAVING Last Admin: 09/11/17 20:34 Dose: 10 mg Ondansetron HCl (Zofran Inj*) 4 mg IV Q6H PRN PRN Reason: NAUSEA Last Admin: 09/15/17 15:38 Dose: 4 mg Potassium Chloride (Klor Con Er Tab*) 40 meq PO DAILY [facility] Thiamine HCl (Vitamin B-1 Tab*) 100 mg PO DAILY [facility] Last Admin: 09/16/17 09:35 Dose: 100 mg Vital Signs 09/15/17 09/15/17 09/15/17 15:18 17:58 18:10 Temperature 98.1 F 98.1 F Pulse Rate 95 124 Respiratory 20 20 25 Rate Blood Pressure 143/83 130/86 (mmHg) O2 Sat by Pulse 100 100 Oximetry 09/15/17 09/15/17 09/15/17 18:14 18:16 18:28 Temperature Pulse Rate 125 128 125 Respiratory 23 22 Rate Blood Pressure 138/92 130/86 (mmHg) O2 Sat by Pulse 100 100 100 Oximetry 09/15/17 09/15/17 09/15/17 18:45 18:58 19:00 Temperature Pulse Rate 116 122 Respiratory 24 18 23 Rate Blood Pressure 129/88 (mmHg) O2 Sat by Pulse 100 100 Oximetry 09/15/17 09/15/17 09/15/17 19:01 19:15 19:27 Temperature Pulse Rate 119 111 116 Respiratory 24 20 22 Rate Blood Pressure 146/99 155/99 (mmHg) O2 Sat by Pulse 99 100 99 Oximetry 09/15/17 09/15/17 09/15/17 19:30 19:45 20:00 Temperature Pulse Rate 105 104 Respiratory 20 24 18 Rate Blood Pressure 143/94 156/95 (mmHg) O2 Sat by Pulse 99 98 Oximetry 09/15/17 09/15/17 09/15/17 20:03 20:21 20:31 Temperature 98.1 F Pulse Rate 100 94 Respiratory 14 20 Rate Blood Pressure 153/104 154/104 (mmHg) O2 Sat by Pulse 96 97 Oximetry 09/15/17 09/15/17 09/15/17 20:48 21:00 21:30 Temperature Pulse Rate 81 83 Respiratory 16 18 19 Rate Blood Pressure 167/96 144/90 (mmHg) O2 Sat by Pulse 97 97 Oximetry 09/15/17 09/15/17 09/15/17 22:00 22:30 23:00 Temperature Pulse Rate 75 68 68 Respiratory 20 18 18 Rate Blood Pressure 144/88 125/84 145/87 (mmHg) O2 Sat by Pulse 97 97 96 Oximetry 09/15/17 09/15/17 09/16/17 23:30 23:36 00:00 Temperature 98.4 F Pulse Rate 65 61 75 Respiratory 15 18 16 Rate Blood Pressure 145/93 126/83 (mmHg) O2 Sat by Pulse 98 98 96 Oximetry 09/16/17 09/16/17 09/16/17 00:30 01:00 02:00 Temperature Pulse Rate 64 67 54 Respiratory 18 18 17 Rate Blood Pressure 145/85 142/86 164/93 (mmHg) O2 Sat by Pulse 98 96 99 Oximetry 09/16/17 09/16/17 09/16/17 03:00 04:00 05:00 Temperature 98.7 F Pulse Rate 82 78 80 Respiratory 18 17 19 Rate Blood Pressure 110/74 132/84 124/69 (mmHg) O2 Sat by Pulse 94 94 94 Oximetry 09/16/17 09/16/17 09/16/17 06:00 07:00 07:32 Temperature 98.2 F Pulse Rate 84 69 Respiratory 19 17 Rate Blood Pressure 140/81 134/85 (mmHg) O2 Sat by Pulse 95 96 Oximetry 09/16/17 09/16/17 09/16/17 07:39 07:45 08:00 Temperature 98.2 F Pulse Rate 88 Respiratory 19 17 17 Rate Blood Pressure 108/80 (mmHg) O2 Sat by Pulse 95 Oximetry 09/16/17 09/16/17 09/16/17 09:00 10:00 10:45 Temperature Pulse Rate 107 100 Respiratory 22 16 23 Rate Blood Pressure 131/76 126/76 (mmHg) O2 Sat by Pulse 93 97 Oximetry 09/16/17 09/16/17 09/16/17 11:00 11:05 11:27 Temperature 98.2 F Pulse Rate 98 97 Respiratory 18 18 19 Rate Blood Pressure 109/81 109/81 (mmHg) O2 Sat by Pulse 95 94 Oximetry 09/16/17 09/16/17 11:33 11:34 Temperature 98.2 F Pulse Rate Respiratory 26 Rate Blood Pressure (mmHg) O2 Sat by Pulse Oximetry Oxygen Devices in Use Now: None Appearance: Middle aged male sitting in a chair, NAD Eyes: No Scleral Icterus Ears/Nose/Mouth/Throat: Mucous Membranes Moist Respiratory: Symmetrical Chest Expansion and Respiratory Effort, Clear to Auscultation Cardiovascular: NL Sounds; No Murmurs; No JVD, RRR, No Edema Abdominal: NL Sounds; No Tenderness; No Distention Extremities: No Clubbing, Cyanosis Skin: No Rash or Ulcers, No Nodules or Sclerosis Neurological: Alert and Oriented x 3 Result Diagrams: 09/15/17 17:50 09/16/17 05:30 Assess/Plan/Problems-Billing Mr Doran is a 67yo male with a PMHx significant for alcohol abuse for over 10 years who presented with symptoms consistent with withdrawal from alcohol as well as half-way abnormalities consistent with alcohol abuse. - Patient Problems (1) Seizure Current Visit: Yes Status: Acute Code(s): R56.9 - UNSPECIFIED CONVULSIONS SNOMED Code(s): 97053270 Comment: Unclear why pt had a seizure last night. ? late EtOH withdrawal seizure. Will continue valium q8hr today then taper. Will talk with neurology. EEG done but results pending. (2) Alcohol withdrawal with inpatient treatment Current Visit: Yes Status: Acute Code(s): F10.239 - ALCOHOL DEPENDENCE WITH WITHDRAWAL, UNSPECIFIED SNOMED Code(s): 451707866 Comment: WAM restarted last night after pt had seizure but he has not scored high enough to require ativan treatment. Continue to monitor. (3) Alcoholic hepatitis Current Visit: Yes Status: Acute Code(s): K70.10 - ALCOHOLIC HEPATITIS WITHOUT ASCITES SNOMED Code(s): 513672479 Comment: Resolved. (4) Anemia Current Visit: Yes Status: Acute Code(s): D64.9 - ANEMIA, UNSPECIFIED SNOMED Code(s): 028191980 Comment: Pt is anemic and thrombocytopenic likley from EtOH use. Plt count has normalized. H/H stable. Continue iron and B12 supplementation. (5) Hypokalemia Current Visit: Yes Status: Acute Code(s): E87.6 - HYPOKALEMIA SNOMED Code( s): 94980507 Comment: K improved after aggressive K supplementation. Repeat level pending for this AM. Replace as needed. (6) Hypomagnesemia Current Visit: Yes Status: Acute Code(s): E83.42 - HYPOMAGNESEMIA SNOMED Code(s): 167781306 Comment: Mg in good range. (7) Tobacco abuse Current Visit: Yes Status: Acute Code(s): Z72.0 - TOBACCO USE SNOMED Code( s): 219693182 Comment: Pt asking for nicotine patch today-will start 7mg patch. (8) DVT prophylaxis Current Visit: Yes Status: Acute Code(s): GOA1590 - SNOMED Code(s): 275256623 Comment: SQ heparin (9) Full code status Current Visit: Yes Status: Acute Code(s): Z78.9 - OTHER SPECIFIED HEALTH STATUS SNOMED Code(s): 849516733 Status and Disposition: .
[2017-09-16] MEDS: Nicotine Inhaler* 10 MG AMP INH PRN (13:00)
[2017-09-16] MEDS: Nicotine PATCH 7 MG/24 HR* PATCH TRANSDERM SCH (13:17)
[2017-09-16] MEDS: Potassium Chlor TAB* 20 MEQ TAB.ER PO SCH (13:18)
--- NOTE | 2017-09-16 17:19 | RAD ---
HISTORY: New onset seizure COMPARISONS: Head CT dated September 15, 2017 TECHNIQUE: The following sequences were obtained of the head: Sagittal T1-weighted images, axial T2-weighted images, axial FLAIR images, axial susceptibility weighted images, axial T1-weighted images, coronal T1, T2 and FLAIR images through the mesial temporal lobes. Additionally, axial diffusion-weighted images were obtained with calculated apparent diffusion coefficients. FINDINGS: HEMORRHAGE/INFARCT: There is no hemorrhage or acute infarct. MASSES/SHIFT: There is no mass or shift. EXTRA-AXIAL SPACES/MENINGES: There are no extra-axial fluid collections. SULCI AND VENTRICLES: There is diffuse and proportional enlargement of the sulci and ventricles. CEREBRUM: There are multiple scattered small foci of elevated T2/FLAIR signal within the periventricular and subcortical white matter. The mesial temporal lobes are symmetric. There is no appreciable cortical dysplasia or heterotopia. BRAINSTEM: There are no focal parenchymal abnormalities. CEREBELLUM: There are no focal parenchymal abnormalities. The cerebellar tonsils are normal in size and position. SELLA: The sella is normal. PINEAL: The pineal region is clear. CP ANGLE/TEMPORAL BONES: The labyrinthine structures are grossly normal. VESSELS: Normal flow-voids are noted within the visualized vertebral vasculature. DIFFUSION ABNORMALITIES: There are no diffusion abnormalities. PARANASAL SINUSES/MASTOIDS: The paranasal sinuses are clear. ORBITS: The orbits are unremarkable. BONES AND SOFT TISSUE: No bone or soft tissue abnormalities are noted. OTHER: None IMPRESSION: 1. DIFFUSE INVOLUTIONAL CHANGE. 2. THERE ARE MULTIPLE FOCI OF ELEVATED T2/FLAIR SIGNAL WITHIN THE PERIVENTRICULAR AND SUBCORTICAL WHITE MATTER. WHILE THESE FINDINGS ARE NONSPECIFIC, THEY CAN BE SEEN IN ASSOCIATION WITH MIGRAINE HEADACHE, THE SEQUELA OF PREVIOUS INFECTION OR INFLAMMATION, AND CHRONIC SMALL VESSEL ISCHEMIA. DEMYELINATING DISEASE IS ALSO WITHIN THE DIFFERENTIAL, BUT IS CONSIDERED LESS LIKELY IN THE ABSENCE OF THE APPROPRIATE CLINICAL PRESENTATION. 3. THE MESIAL TEMPORAL LOBES ARE SYMMETRIC. THERE IS NO APPRECIABLE CORTICAL DYSPLASIA OR HETEROTOPIA.
[2017-09-16] MEDS: Acetaminophen TAB* 325 MG PO PRN (20:42)
[2017-09-16] MEDS: CMCS Melatonin (NF) 3 MG TAB PO PRN (20:42)
[2017-09-16] MEDS ORDERED: Nicotine Patch Removal NOTE FOLLOW UP SCH (21:00)
[2017-09-17] MEDS: Diazepam TAB(*) 2 MG PO SCH (06:22)
[2017-09-17] MEDS: Heparin VIAL(*) 5000 UNITS/ML VIAL (FIVE THOUSAND) SUBCUT SCH (06:23)
[2017-09-17 07:09] LABS: BUN/Creatinine Ratio 12.5 (8-20); Calcium 9.6 mg/dL (8.6-10.3); EGFR African American 161.4 (>60); EGFR Non-African American 125.5 (>60); Magnesium 1.6 mg/dL (1.9-2.7); Potassium 3.8 mmol/L (3.5-5.0)
[2017-09-17 08:06] VITALS: BP 125/76
[2017-09-17] MEDS: Nicotine PATCH 7 MG/24 HR* PATCH TRANSDERM SCH ×2 (09:49→10:01)
[2017-09-17] MEDS: Thiamine TAB* 100 MG TAB PO SCH (09:57)
[2017-09-17] MEDS: Folic Acid TAB* 1 MG PO SCH (09:57)
[2017-09-17] MEDS: Cyanocobalamin TAB* 500 MCG PO SCH (09:57)
[2017-09-17] MEDS: Potassium Chlor TAB* 20 MEQ TAB.ER PO SCH (09:57)
[2017-09-17] MEDS: Ferrous Sulfate TAB* 325 MG PO SCH (10:02)
[2017-09-17] MEDS: Multivitamins/Minerals TAB PO SCH (10:02)
--- NOTE | 2017-09-17 10:45 | PN ---
Subjective Date of Service: 09/17/17 Interval History: Pt is feeling ok. He agrees to STR but states he doesn't think he should go today because he does not have any clean closes and his hair is tangled. He denies any pain. No SOB. No issues with BMs. Family History: Unchanged from Admission Social History: Unchanged from Admission Past Medical History: Unchanged from Admission Objective Active Medications: Acetaminophen (Tylenol Tab*) 650 mg PO Q4H PRN PRN Reason: PAIN Last Admin: 09/16/17 20:42 Dose: 650 mg Albuterol (Ventolin Hfa Inhaler*) 2 puff INH Q4H PRN PRN Reason: SOB/WHEEZING Cyanocobalamin (Vitamin B12 Tab*) 500 mcg PO DAILY [facility] Last Admin: 09/17/17 09:57 Dose: 500 mcg Diazepam (Valium Tab(*)) 2 mg PO Q8HR [facility] Last Admin: 09/17/17 06:22 Dose: 2 mg Ferrous Sulfate (Ferrous Sulfate Tab*) 325 mg PO DAILY [facility] Last Admin: 09/17/17 10:02 Dose: 325 mg Folic Acid (Folvite Tab*) 1 mg PO DAILY [facility] Last Admin: 09/17/17 09:57 Dose: 1 mg Heparin Sodium (Porcine) (Heparin Vial(*)) 5,000 units SUBCUT Q8HR [facility] Last Admin: 09/17/17 06:23 Dose: 5,000 units Lorazepam (Ativan Inj*) 1 mg IV PUSH Q6H PRN PRN Reason: seizure >1min Lorazepam (Ativan Tab(*)) 0 mg PO Q4H PRN; Protocol PRN Reason: ANXIETY Magnesium Oxide (Magox 400 Tab*) 800 mg PO DAILY [facility] Melatonin (Melatonin (Nf)) 3 mg PO BEDTIME PRN; Protocol PRN Reason: Sleep Last Admin: 09/16/17 20:42 Dose: 3 mg Multivitamins/Minerals (Theragran/Minerals Tab*) 1 tab PO DAILY [facility] Last Admin: 09/17/17 10:02 Dose: 1 tab Nicotine (Nicotine Inhaler*) 10 mg INH Q2H PRN PRN Reason: CRAVING Last Admin: 09/16/17 13:00 Dose: 10 mg Nicotine (Nicotine Patch 7 Mg/24 Hr*) 1 patch TRANSDERM DAILY [facility] Last Admin: 09/17/17 10:01 Dose: 1 patch Ondansetron HCl (Zofran Inj*) 4 mg IV Q6H PRN PRN Reason: NAUSEA Last Admin: 09/15/17 15:38 Dose: 4 mg Pharmacy Profile Note (Nicotine Patch Removal Note*) 1 note FOLLOW UP 2100 [facility] Last Admin: 09/16/17 20:48 Dose: 1 note Potassium Chloride (Klor Con Er Tab*) 40 meq PO DAILY [facility] Last Admin: 09/17/17 09:57 Dose: 40 meq Thiamine HCl (Vitamin B-1 Tab*) 100 mg PO DAILY [facility] Last Admin: 09/17/17 09:57 Dose: 100 mg Vital Signs 09/16/17 09/16/17 09/16/17 10:45 11:00 11:05 Temperature 98.2 F Pulse Rate 98 97 Respiratory 23 18 18 Rate Blood Pressure 109/81 109/81 (mmHg) O2 Sat by Pulse 95 94 Oximetry 09/16/17 09/16/17 09/16/17 11:27 11:33 11:34 Temperature 98.2 F Pulse Rate Respiratory 19 26 Rate Blood Pressure (mmHg) O2 Sat by Pulse Oximetry 09/16/17 09/16/17 09/16/17 12:00 13:00 13:18 Temperature Pulse Rate 101 102 Respiratory 15 18 18 Rate Blood Pressure 104/76 121/92 (mmHg) O2 Sat by Pulse 95 96 Oximetry 09/16/17 09/16/17 09/16/17 14:00 14:01 15:03 Temperature 98.2 F Pulse Rate 124 104 87 Respiratory 16 27 18 Rate Blood Pressure 119/68 138/85 (mmHg) O2 Sat by Pulse 76 90 97 Oximetry 09/16/17 09/16/17 09/16/17 19:50 20:00 20:42 Temperature 98.8 F Pulse Rate 93 86 Respiratory 18 16 19 Rate Blood Pressure 131/81 (mmHg) O2 Sat by Pulse 100 98 Oximetry 09/16/17 09/16/17 09/17/17 22:42 23:21 03:49 Temperature 98.8 F 98.3 F Pulse Rate 86 89 Respiratory 16 16 16 Rate Blood Pressure 130/78 126/68 (mmHg) O2 Sat by Pulse 98 97 Oximetry 09/17/17 09/17/17 09/17/17 06:22 07:47 08:00 Temperature 98.1 F Pulse Rate 79 Respiratory 18 16 16 Rate Blood Pressure 125/76 (mmHg) O2 Sat by Pulse 95 Oximetry 09/17/17 08:22 Temperature Pulse Rate Respiratory 16 Rate Blood Pressure (mmHg) O2 Sat by Pulse Oximetry Oxygen Devices in Use Now: None Appearance: Middle aged male sitting up in bed, NAD Eyes: No Scleral Icterus Ears/Nose/Mouth/Throat: Mucous Membranes Moist Respiratory: Symmetrical Chest Expansion and Respiratory Effort, Clear to Auscultation Cardiovascular: NL Sounds; No Murmurs; No JVD, RRR, No Edema Abdominal: NL Sounds; No Tenderness; No Distention Extremities: No Clubbing, Cyanosis Skin: No Rash or Ulcers, No Nodules or Sclerosis Neurological: Alert and Oriented x 3 Result Diagrams: 09/15/17 17:50 09/17/17 06:31 Assess/Plan/Problems-Billing Mr Doran is a 67yo male with a PMHx significant for alcohol abuse for over 10 years who presented with symptoms consistent with withdrawal from alcohol as well as ocean transportation intermediary abnormalities consistent with alcohol abuse. - Patient Problems (1) Seizure Current Visit: Yes Status: Acute Code(s): R56.9 - UNSPECIFIED CONVULSIONS SNOMED Code(s): 34880947 Comment: EEG did not reveal epileptic focus. MRI negative for acute or significant finding. Stop valium and WAM protocol. Likely late EtOH withdrawal seizure. Monitor. (2) Alcohol withdrawal with inpatient treatment Current Visit: Yes Status: Acute Code(s): F10.239 - ALCOHOL DEPENDENCE WITH WITHDRAWAL, UNSPECIFIED SNOMED Code(s): 602022236 Comment: Stop WAM as pt did not score to receive ativan. (3) Alcoholic hepatitis Current Visit: Yes Status: Acute Code(s): K70.10 - ALCOHOLIC HEPATITIS WITHOUT ASCITES SNOMED Code(s): 655448615 Comment: Resolved. (4) Anemia Current Visit: Yes Status: Acute Code(s): D64.9 - ANEMIA, UNSPECIFIED SNOMED Code(s): 808511137 Comment: Continue iron and B12 supplementation. (5) Hypokalemia Current Visit: Yes Status: Acute Code(s): E87.6 - HYPOKALEMIA SNOMED Code( s): 03494824 Comment: Continue KCl 40mEq daily. (6) Hypomagnesemia Current Visit: Yes Status: Acute Code(s): E83.42 - HYPOMAGNESEMIA SNOMED Code(s): 065830516 Comment: Give supplemental Mg today. (7) Tobacco abuse Current Visit: Yes Status: Acute Code(s): Z72.0 - TOBACCO USE SNOMED Code( s): 184257316 Comment: Pt asking for nicotine patch today-will start 7mg patch. (8) DVT prophylaxis Current Visit: Yes Status: Acute Code(s): [id number] - SNOMED Code(s): 010569096 Comment: SQ heparin (9) Full code status Current Visit: Yes Status: Acute Code(s): Z78.9 - OTHER SPECIFIED HEALTH STATUS SNOMED Code(s): 648360319 Status and Disposition: .
[2017-09-17] MEDS ORDERED: Magnesium Oxide TAB* 400 MG PO SCH (11:00)
--- NOTE | 2017-09-17 11:55 | EEG ---
ELECTROENCEPHALOGRAM REPORT: DATE OF STUDY: 09/16/17 LOCATION: He is an inpatient in ICU bed 1. REFERRING PROVIDER: Dr. Holt. CLINICAL HISTORY: The patient with alcoholism, found in feces and urine by a police in his apartment on the day of admission, 09/10/17. They were apparently called because of back pain and he was on the ground when the [employer] farmworker arrived. He expressed depression from concerns about being evicted. He had a tonic-clonic seizure on 09/15/17 in his hospital room. MEDICATIONS: Current medications consist of: 1. Lorazepam. 2. Diazepam. 3. Vitamins. 4. Albuterol. EEG DESCRIPTION: This 16-channel EEG is remarkable for background rhythms consisting of diffuse excessive beta rhythms of moderate voltage. There is a poorly formed occipital rhythm at about 7, perhaps 8 cycles per second, largely obscured by beta activity. The patient is clinically awake. There is occasional movement or muscle artifact. There are no clinical events described. Activation procedures are not attempted. Sleep stages are not recognized. There are no focal, lateralized, or epileptiform abnormalities. INTERPRETATION: Abnormal EEG due to excessive beta activity consistent with benzodiazepine drug effect. There are no focal or epileptiform features to this recording. [id number]/[facility] #: [id number] [facility]
--- NOTE | 2017-09-17 13:49 | DS ---
CC: Dr. Bethea* DATE OF ADMISSION: 09/10/2017. DATE OF DISCHARGE: 09/17/2017. PRIMARY CARE PHYSICIAN: Dr. Bethea. PRINCIPAL DIAGNOSES: 1. Alcohol withdrawal with alcohol withdrawal seizure. 2. Anemia and thrombocytopenia likely secondary to chronic alcohol use. 3. Suicidal ideation secondary to likely alcohol use - now resolved. 4. Hypokalemia and hypomagnesemia, likely nutritional deficiencies - improved. DISCHARGE MEDICATIONS: 1. Thiamin 100 mg p.o. daily. 2. Potassium Chloride 40 mEq p.o. daily. 3. Nicotine patch 7 mg topically q.24 hours. 4. Nicotine inhaler 10 mg inhaled q.2 hours prn craving. 5. Multivitamin one tab p.o. daily. 6. Melatonin 3 mg p.o. at bedtime prn insomnia. 7. Magnesium Oxide 800 mg p.o. daily. 8. Folic acid 1 mg p.o. daily. 9. Ferrous Sulfate 325 mg p.o. daily. 10. Vitamin B12 500 mcg p.o. daily. 11. Albuterol two puffs inhaled q.4 hours prn shortness of breath. 12. Tylenol 650 mg p.o. q.4 hours prn pain. HOSPITAL COURSE: Mr. Doran is a 67-year-old male with a long-standing history of alcohol abuse who was found on the floor. The patient initially told EMS that he wanted to kill himself because he was concerned about being evicted from his [facility]. The patient was admitted for alcohol withdrawal. The patient initially did have suicidal ideation; however, this resolved as his mental status became clear and he finished the withdrawal process. The patient had tapering doses of Ativan until he was no longer scoring on the WAM protocol. The WAM protocol was discontinued on 09/15/2017 in the morning. Unfortunately, at approximately 5:30 p.m. on 09/15/2017, the patient had a generalized tonic clonic seizure. Lab work at that time revealed a marked lactic acidosis likely secondary to the seizure and otherwise normal labs. A CT of the brain was performed which did not reveal any acute findings. Given the patient was essentially through the alcohol withdrawal process, the decision was made to perform EEG and MRI of the brain. The EEG did not reveal any epileptiform discharges. The patient's MRI also showed nonspecific findings , but nothing acute or anything that would precipitate seizure. I suspect the patient likely just had a late onset alcohol withdrawal seizure. The patient has done well over the last two days. He had been receiving valium in the hospital; however, this too has been discontinued. The patient again is not scoring anything on the WAM protocol to require any Ativan. His mental status is quite clear. He has been found to be unstable on his feet and it is recommended that he go to short-term rehab. The patient was found to be anemic and thrombocytopenic, likely secondary to his alcohol use. His B12 level was low normal and this is being repleted. His iron score were also low and this too he is on supplementation for. The patient also had likely mild alcoholic hepatitis on admission that resolved. The patient has been mildly hyponatremic; however, this has been stable. At this point, the patient is stable for discharge to short-term rehab. FOLLOW-UP CONCERNS: The patient is being discharged to [facility] today, . ACTIVITY LEVEL: As tolerated. DIET: Regular. CONDITION ON DISCHARGE: Stable. Thirty-five minutes were spent discharging this patient. [id number]/[facility] #: [id number] JANEL
== END 2017-09-17 14:35 | DRG 897 ==
LOC: MED 18:16 → OBSVTOIN 18:18 → MED 09-12 07:31 → ICU 09-15 19:17 → MED 09-16 14:43
PROVIDERS: ADMIT Internal Medicine; ATTEND Hospitalist
DX: F10.239 Alcohol dependence with withdrawal, unspecified (principal); D69.59 Other secondary thrombocytopenia; R45.851 Suicidal ideations; G40.509 Epileptic seizures related to external causes, not intractable, without status epilepticus; E87.6 Hypokalemia; E61.2 Magnesium deficiency; D64.89 Other specified anemias; K70.10 Alcoholic hepatitis without ascites; F17.210 Nicotine dependence, cigarettes, uncomplicated; F10.24 Alcohol dependence with alcohol-induced mood disorder; Z81.1 Family history of alcohol abuse and dependence; Z88.6 Allergy status to analgesic agent
CPT/HCPCS: 36415; 70450; 70551; 80048; 80053; 82140; 82607; 82728; 82746; 83540; 83550; 83605; 83735; 84484; 85025; 93005; 94760; 95816; A9270-GY; J1644; J2060; J2405; J3411; J3475

== ENCOUNTER 2018-01-27 17:04 | Emergency (ER) | payer MEDICARE, MEDICAID ==
[2018-01-27 17:35] LABS: ABS Basophils 0 10^3/ul (0-0.2); ABS Eosinophils 0 10^3/ul (0-0.6); ABS Monocytes 0.7 10^3/ul (0-0.8); ABS Neutrophils 5.4 10^3/ul (1.5-7.7); ABS Nucleated RBC 0 10^3/ul; Eosinophil % 0.4 % (0-6); Hematocrit 36 % (42-52); Hemoglobin 12.1 g/dl (14.0-18.0); Lymphocyte % 24.8 % (25-47); Mean Corpuscular HGB Conc 34 g/dl (31-36); Mean Corpuscular Hemoglobin 32 pg (27-31); Mean Corpuscular Volume 93 fL (80-94); Mean Platelet Volume 8 um3 (7.4-10.4); Nucleated Red Blood Cells % 0.1; Platelet Count 196 10^3/ul (150-450); Red Blood Count 3.83 10^6/ul (4.0-5.4); Red Cell Distribution Width 15 % (10.5-15); White Blood Count 8.2 10^3/ul (3.5-10.8)
[2018-01-27 17:52] LABS: EGFR Non-African American 140.6 (>60)
--- NOTE | 2018-01-27 18:50 | ED ---
Jann Lópze Angela, scribed for Chino Daily MD on 01/27/18 at 1717 . Psychiatric Complaint - HPI Summary HPI Summary: This pt is a 67 y/o male presenting to [facility] via EMS for SI thoughts and plan. Pt reports he has been trying to get back to a skilled nursing. He states he was in a skilled nursing before and got out as he thought he would be better without being in one. Pt notes "I'm afraid of killing myself." When asked about an SI plan, he reports "I can think of chemical ways," overdosing on alcohol, and jumping in front of railroad tracks and automobile roads. He admits to drinking alcohol today. - History Of Current Complaint Time Seen by Provider: 01/27/18 17:08 Hx Obtained From: Patient Onset/Duration: Lasting Days, Still Present Timing: Days Severity Currently: Moderate Character: Depressed, Fearful Aggravating Factor(s): Nothing Alleviating Factor(s): Nothing Associated Signs And Symptoms: Positive: Confused Has Suicidal: Reports: Thoughts, With A Plan Has Homicidal: Denies: Thoughts, With A Plan - Allergies/Home Medications Allergies/Adverse Reactions: Allergies Allergy/AdvReac Type Severity Reaction Status Date / Time aspirin Allergy Hallucinati Verified 01/27/18 17:25 ons PMH/Surg Hx/FS Hx/Imm Hx Endocrine/Hematology History: Denies: Hx Diabetes Cardiovascular History: Denies: Hx Coronary Artery Disease, Hx Hypertension, Hx Pacemaker/ICD Sensory History: Reports: Hx Contacts or Glasses Denies: Hx Hearing Aid Opthamlomology History: Reports: Hx Contacts or Glasses Neurological History: Reports: Hx Seizures - While detoxing Psychiatric History: Reports: Hx Anxiety, Hx Depression Denies: Hx Eating Disorder, Hx Panic Disorder, Hx of Violent Episodes Against Others - Surgical History Surgery Procedure, Year, and Place: arthroscopic to right knee apprx 20 yrs ago - Family History Known Family History: Positive: Unknown - pt reports he lived in an orphanage. - Social History Alcohol Use: Daily Alcohol Amount: 3-4 double size/day Hx Substance Use: No Substance Use Type: Reports: None Hx Tobacco Use: Yes Smoking Status (MU): Current Every Day Smoker Amount Used/How Often: 1ppd, stoped a few weeks a go, uses no other tobacco products. Review of Systems Negative: Fever, Chills ENT: Negative Cardiovascular: Negative Respiratory: Negative Gastrointestinal: Negative Genitourinary: Negative Psychological: Other - SI thoughts and plan Positive: Depressed. Negative: Other - HI All Other Systems Reviewed And Are Negative: Yes Physical Exam - Summary Physical Exam Summary: VITAL SIGNS: Reviewed. GENERAL: Patient is a well-developed and nourished male. Patient is not in any acute respiratory distress. Pt has poor hygiene. HEAD AND FACE: No signs of trauma. No ecchymosis, hematomas or skull depressions. No sinus tenderness. EYES: PERRLA, EOMI x 2, No injected conjunctiva, no nystagmus. EARS: Hearing grossly intact. Ear canals and tympanic membranes are within normal limits. MOUTH: Oropharynx within normal limits. NECK: Supple, trachea is midline, no adenopathy, no JVD, no carotid bruit, no c- spine tenderness, neck with full ROM. CHEST: Symmetric, no tenderness at palpation LUNGS: Clear to auscultation bilaterally. No wheezing or crackles. CVS: Regular rate and rhythm, S1 and S2 present, no murmurs or gallops appreciated. ABDOMEN: Soft, non-tender. No signs of distention. No rebound no guarding, and no masses palpated. Bowel sounds are normal. EXTREMITIES: FROM in all major joints, no edema, no cyanosis or clubbing. NEURO: Alert and oriented x 3. No acute neurological deficits. Speech is normal and follows commands. SKIN: Dry and warm Triage Information Reviewed: Yes Vital Signs Reviewed: Yes Diagnostics - Laboratory Result Diagrams: 01/27/18 17:15 01/27/18 17:15 Lab Statement: Any lab studies that have been ordered have been reviewed, and results considered in the medical decision making process. Course/Dx - Course Assessment/Plan: This pt is a 67 y/o male presenting to [facility] via EMS for SI thoughts and plan. Pt reports he has been trying to get back to a skilled nursing. He states he was in a skilled nursing before and got out as he thought he would be better without being in one. Pt notes "I'm afraid of killing myself." When asked about an SI plan, he reports "I can think of chemical ways," overdosing on alcohol, and jumping in front of railroad tracks and automobile roads. He admits to drinking alcohol today. Test results without any significant abnormalities except for hemoglobin of 12.1, hematocrit of 36, AST of 76, serum alcohol of 263. He is awaiting medical clearance at approximately 22:00 today. After medical clearance, pt will need a MHE. Pt will be signed out to Dr. Jimenez , pending disposition, awaiting medical clearance and MHE. - Differential Dx/Clinical Impression Provider Diagnosis: Suicidal ideation, Alcohol intoxication Discharge - Discharge Plan Condition: Stable Disposition: OTHER Discharge Disposition Comment: signed out to Dr. Jimenez, pending dispo, awaiting medical clearance and MHE. Referrals: Chino Bethea MD [Primary Care Provider] - The documentation as recorded by the Jann lane Angela accurately reflects the service I personally performed and the decisions made by , Chino Daily MD.
[2018-01-27 19:17] LABS: Urine Appearance Clear; Urine Blood Negative (Negative); Urine Color Yellow; Urine Ketones 1+ (Negative); Urine Protein Negative (Negative); Urine Specific Gravity 1.005 (1.010-1.030); Urine Urobilinogen Negative (Negative)
--- NOTE | 2018-01-28 06:22 | ED ---
Stacy López Julia, scribed for Pablo Jimenez MD on 01/27/18 at 1910 . Progress - Progress Note Progress Note: Patient is signed out from Dr. Daily, waiting alcohol metabolism prior to mental health evaluation and disposition. Course/Dx - Course Course Of Treatment: Mental health folder seamer automatic will discharge this patient. He will follow up with a forensic social worker, because he states his SI is due to his current living situation. - Diagnoses Provider Diagnoses: Suicidal ideation, Alcohol intoxication The documentation as recorded by the Stacy lane Julia accurately reflects the service I personally performed and the decisions made by Tony hebert Abdul, MD.
--- NOTE | 2018-01-28 09:46 | PN ---
ED Flex Patient Progress Note Date of Service: 01/28/18 Subjective: This is a 67 year-old M who is pending discharge to home after figuring out living situation with social studies teacher. Was already cleared by MHE and ready for discharge. Pt offers no complaints at this time, sleeping and eating. Objective: Vitals: Most recent vital signs documented below. General NAD, Alert and oriented x3. Heart: rrr at 94 bpm Lungs: CTA or with rales, rhonchi, wheezing Laboratory: Current laboratory results documented below. Assessment: pending social work to figure out living situation prior to discharge. Plan: Pending discharge. will follow up daily. Vital Signs Temp Pulse Resp BP Pulse Ox 98.2 F 84 18 127/75 96 01/28/18 07:02 01/28/18 07:02 01/28/18 07:02 01/28/18 07:02 01/28/18 07:02 Lab Results - Entire Visit 01/27/18 01/27/18 01/27/18 18:57 18:57 17:15 WBC 8.2 RBC 3.83 L Hgb 12.1 L Hct 36 L MCV 93 MCH 32 H MCHC 34 RDW 15 Plt Count 196 MPV 8 Neut % (Auto) 65.7 Lymph % (Auto) 24.8 L Mathe[place] % (Auto) 8.5 H Eos % (Auto) 0.4 Baso % (Auto) 0.6 Absolute Neuts (auto) 5.4 Absolute Lymphs (auto) 2.0 Absolute Monos (auto) 0.7 Absolute Eos (auto) 0 Absolute Basos (auto) 0 Absolute Nucleated RBC 0 Nucleated RBC % 0.1 Sodium Potassium Chloride Carbon Dioxide Anion Gap BUN Creatinine Est GFR ( Amer) Est GFR (Non-Af Amer) BUN/Creatinine Ratio Glucose Calcium Total Bilirubin AST ALT Alkaline Phosphatase Total Protein Albumin Globulin Albumin/Globulin Ratio TSH Urine Color Yellow Urine Appearance Clear Urine pH 5.0 Ur Specific [place] 1.005 L Urine Protein Negative Urine Ketones 1+ A Urine Blood Negative Urine Nitrate Negative Urine Bilirubin Negative Urine Urobilinogen Negative Ur Leukocyte Esterase Negative Urine Glucose Negative Salicylates Urine Opiates Screen None detected Acetaminophen Ur Barbiturates Screen None detected Ur Phencyclidine Scrn None detected Ur Amphetamines Screen None detected U Benzodiazepines Scrn None detected Urine Cocaine Screen None detected U Cannabinoids Screen None detected Serum Alcohol 01/27/18 17:15 WBC RBC Hgb Hct MCV MCH MCHC RDW Plt Count MPV Neut % (Auto) Lymph % (Auto) Mathews % (Auto) Eos % (Auto) Baso % (Auto) Absolute Neuts (auto) Absolute Lymphs (auto) Absolute Monos (auto) Absolute Eos (auto) Absolute Basos (auto) Absolute Nucleated RBC Nucleated RBC % Sodium 132 L Potassium 4.4 Chloride 94 L Carbon Dioxide 26 Anion Gap 12 H BUN 3 L Creatinine 0.58 L Est GFR ( Amer) 180.8 Est GFR (Non-Af Amer) 140.6 BUN/Creatinine Ratio 5.2 L Glucose 72 Calcium 8.9 Total Bilirubin 1.20 H AST 76 H ALT 27 Alkaline Phosphatase 64 Total Protein 7.1 Albumin 4.0 Globulin 3.1 Albumin/Globulin Ratio 1.3 TSH 0.90 Urine Color Urine Appearance Urine pH Ur Specific [place] Urine Protein Urine Ketones Urine Blood Urine Nitrate Urine Bilirubin Urine Urobilinogen Ur Leukocyte Esterase Urine Glucose Salicylates < 2.50 Urine Opiates Screen Acetaminophen < 15 Ur Barbiturates Screen Ur Phencyclidine Scrn Ur Amphetamines Screen U Benzodiazepines Scrn Urine Cocaine Screen U Cannabinoids Screen Serum Alcohol 263 H
--- NOTE | 2018-01-28 10:35 | PN ---
Progress Note - Progress Note Date of Service: 01/28/18 Note: social work consulted patient and has housing situation figured out and set up. patient is
[2018-01-28 11:07] VITALS: BP 124/63
== END 2018-01-28 11:06 ==
LOC: ED 17:04
DX: R45.851 Suicidal ideations (principal); F10.129 Alcohol abuse with intoxication, unspecified; F17.200 Nicotine dependence, unspecified, uncomplicated; Z88.6 Allergy status to analgesic agent
CPT/HCPCS: 36415; 80053; 80307; 80320; 80329; 81003; 84443; 85025; 99284; G0480

== ENCOUNTER 2018-02-08 20:32 | Observation (INO) | payer MEDICARE, MEDICAID ==
[2018-02-08 21:49] LABS: ABS Basophils 0.1 10^3/ul (0-0.2); ABS Eosinophils 0 10^3/ul (0-0.6); ABS Lymphocytes 1.9 10^3/ul (1.0-4.8); ABS Monocytes 0.8 10^3/ul (0-0.8); ABS Neutrophils 4.5 10^3/ul (1.5-7.7); ABS Nucleated RBC 0 10^3/ul; Eosinophil % 0.7 % (0-6); Hematocrit 38 % (42-52); Hemoglobin 12.7 g/dl (14.0-18.0); Lymphocyte % 26.3 % (25-47); Mean Corpuscular HGB Conc 34 g/dl (31-36); Mean Corpuscular Hemoglobin 31 pg (27-31); Mean Corpuscular Volume 94 fL (80-94); Mean Platelet Volume 8.2 um3 (7.4-10.4); Nucleated Red Blood Cells % 0; Platelet Count 178 10^3/ul (150-450); Red Blood Count 4.05 10^6/ul (4.0-5.4); Red Cell Distribution Width 16 % (10.5-15); White Blood Count 7.3 10^3/ul (3.5-10.8)
[2018-02-08 22:11] LABS: EGFR Non-African American 121.1 (>60)
[2018-02-08 22:22] LABS: Urine Appearance Clear; Urine Blood Negative (Negative); Urine Color Straw; Urine Ketones Negative (Negative); Urine Protein Negative (Negative); Urine Specific Gravity 1.003 (1.010-1.030); Urine Urobilinogen Negative (Negative)
[2018-02-09] MEDS ORDERED: chlordiazePOXIDE CAP* 25 MG PO ONE (08:07)
[2018-02-09] MEDS ORDERED: Thiamine IV* 100 MG, Folic Acid IV* 1 MG, Multiple Vitamin IV ADULT* 10 ML in NS 0.9% 1... IV ONE (08:18)
[2018-02-09] MEDS ORDERED: Acetaminophen TAB* 325 MG PO PRN (08:47)
[2018-02-09] MEDS ORDERED: Al Hydrox/Mg Hydrox/Simet LIQ* 30 ML UDC PO PRN (08:47)
[2018-02-09] MEDS ORDERED: Thiamine IV* 100 MG/ML 2 ML VIAL IM ONE (08:50)
[2018-02-09] MEDS ORDERED: LORazepam TAB(*) 1 MG PO SCH (09:00)
--- NOTE | 2018-02-09 10:05 | RAD ---
Indication: Cough. Comparison: March 13, [address] Technique: Upright AP 0855 hours Report: Elevated lung volumes and both diffuse mild prominence of the interstitial markings and patchy rarefaction of the mid to upper lung zone interstitial markings. Mild bilateral apical pleural-parenchymal scarring without change. No focal pulmonary lesion, compelling alveolar consolidation, pleural effusion, pneumothorax. The heart, pulmonary vasculature, and mediastinal contours are unremarkable. IMPRESSION: Stigmata of obstructive lung disease. No acute pulmonary or cardiac process evident.
[2018-02-09] MEDS: Folic Acid TAB* 1 MG PO SCH (11:27)
[2018-02-09] MEDS: Multivitamins/Minerals TAB PO SCH (11:27)
[2018-02-09] MEDS: LORazepam TAB(*) 1 MG PO SCH ×2 (11:27→17:58)
[2018-02-09] MEDS: Thiamine TAB* 100 MG TAB PO SCH (11:27)
[2018-02-09] MEDS: Enoxaparin(*) 40 MG/0.4 ML SYR SUBCUT SCH (11:28)
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
[2018-02-09] MEDS: Metoprolol Tartrate TAB* 25 MG PO SCH (20:06)
[2018-02-10] MEDS: LORazepam TAB(*) 1 MG PO SCH ×2 (01:02→14:49)
[2018-02-10] MEDS: Metoprolol Tartrate TAB* 25 MG PO SCH (10:44)
[2018-02-10] MEDS: Thiamine TAB* 100 MG TAB PO SCH (10:44)
[2018-02-10] MEDS: Enoxaparin(*) 40 MG/0.4 ML SYR SUBCUT SCH (10:44)
[2018-02-10] MEDS: Multivitamins/Minerals TAB PO SCH (10:45)
[2018-02-10] MEDS: Folic Acid TAB* 1 MG PO SCH (10:45)
--- NOTE | 2018-02-10 11:36 | PN ---
Subjective Date of Service: 02/10/18 Interval History: Patient seen and examined. Very flat affect, but answers appropriately. Denies any fever, fatigue or chills, no tremors or headache. Has unproductive cough, patient states this is his baseline and has had this cough "for a long time". Appears comfortable. 1:1 observation. Per staff and RN, no overnight issues. Objective Active Medications: Acetaminophen (Tylenol Tab*) 650 mg PO Q4H PRN PRN Reason: FEVER/PAIN Al Hydrox/Mg Hydrox/Simethicone (Maalox Plus*) 30 ml PO Q6H PRN PRN Reason: INDIGESTION Enoxaparin Sodium (Lovenox(*)) 40 mg SUBCUT Q24H [facility] Last Admin: 02/10/18 10:44 Dose: 40 mg Folic Acid (Folvite Tab*) 1 mg PO DAILY [facility] Last Admin: 02/10/18 10:45 Dose: 1 mg Lorazepam (Ativan Tab(*)) 0 - 6 mg PO .PER [facility] PROTOCOL [facility] PRN Reason: Protocol Lorazepam (Ativan Tab(*)) 2 mg PO Q12H [facility] PRN Reason: Taper Stop: 02/12/18 04:59 Last Admin: 02/10/18 01:02 Dose: 2 mg Metoprolol Tartrate (Lopressor Tab*) 12.5 mg PO BID [facility] Last Admin: 02/10/18 10:44 Dose: 12.5 mg Multivitamins/Minerals (Theragran/Minerals Tab*) 1 tab PO DAILY [facility] Last Admin: 02/10/18 10:45 Dose: 1 tab Thiamine HCl (Vitamin B-1 Tab*) 100 mg PO DAILY [facility] Last Admin: 02/10/18 10:44 Dose: 100 mg Vital Signs - 8 hr 02/10/18 02/10/18 02/10/18 04:05 05:00 05:14 Temperature 98.0 F Pulse Rate 89 65 Respiratory 18 Rate Blood Pressure 125/70 (mmHg) O2 Sat by Pulse 95 Oximetry Oxygen Devices in Use Now: None Appearance: Alert, appears tired Eyes: No Scleral Icterus, PERRLA Ears/Nose/Mouth/Throat: - - dentures Neck: NL Appearance and Movements; NL JVP, Trachea Midline Respiratory: Symmetrical Chest Expansion and Respiratory Effort, Clear to Auscultation Cardiovascular: NL Sounds; No Murmurs; No JVD, No Edema Extremities: No Edema, No Clubbing, Cyanosis Skin: No Rash or Ulcers Neurological: Alert and Oriented x 3 Nutrition: Taking PO's Result Diagrams: 02/08/18 21:41 02/08/18 21:41 Diagnostic Imaging: Patient Name: ALBERTO POE Medical Record#: [id number] Ordering Physician: Emily Lindquist DO Acct.#: [id number] : 1950 Age: 67 Sex: M Location: [address] [place] [address] - MEDICAL/TELEMETRY Exam Date: 02/09/18846 ADM Status: ADM Connie Order Information: CHEST AP PORTABLE Accession Number: [id number] CPT: 28888 Indication: Cough. Comparison: March 13, [address] Technique: Upright AP 0855 hours Report: Elevated lung volumes and both diffuse mild prominence of the interstitial markings and patchy rarefaction of the mid to upper lung zone interstitial markings. Mild bilateral apical pleural-parenchymal scarring without change. No focal pulmonary lesion, compelling alveolar consolidation, pleural effusion, pneumothorax. The heart, pulmonary vasculature, and mediastinal contours are unremarkable. IMPRESSION: Stigmata of obstructive lung disease. No acute pulmonary or cardiac process evident. <Electronically signed by Chino Mancuso MD in OV> 02/09/18 1001 Dictated By: Chino Mancuso MD Dictated Date/Time: 02/09/18 1001 Transcribed Date/Time: 02/09/18 1000 Copy to: Assess/Plan/Problems-Billing Assessment: This is a 67 year old male patient with a complicated social history that presents to the ER with SI and ETOH withdrawal. - Patient Problems (1) Suicidal ideation Code(s): R45.851 - SUICIDAL IDEATIONS SNOMED Code(s): 4761876 Comment: - Psychiatry following, recommends inpatient when medically clear - 1:1 obs while on medical floor (2) COPD (chronic obstructive pulmonary disease) Code(s): J44.9 - CHRONIC OBSTRUCTIVE PULMONARY DISEASE, UNSPECIFIED SNOMED Code(s): 52386031 Comment: - Patient unaware of this diagnosis, however, given findings on CXR, schronic cough and tobacco abuse (quit a few months ago) would treat clinically to prevent further complications - Will start dulera and albuterol as needed (3) Alcohol use disorder, severe, dependence Code(s): F10.20 - ALCOHOL DEPENDENCE, UNCOMPLICATED SNOMED Code(s): 081675663 Comment: - Per admission record, patient states he takes 4 beers per day, however his BAL was 347 at admission which does not appear congruent with his report - Continue WAM protocol, currently scoring low and not requiring intervention. - Continue MVI and thiamine - BP and HR stable on metoprolol (4) Alcoholic hepatitis Code(s): K70.10 - ALCOHOLIC HEPATITIS WITHOUT ASCITES SNOMED Code(s): 089882165 Comment: - Mildy elevated AST - Continue to monitor (5) DVT prophylaxis Code(s): QCF6944 - SNOMED Code(s): 091295488 Comment: - SQ lovenox (6) Full code status Code(s): Z78.9 - OTHER SPECIFIED HEALTH STATUS SNOMED Code(s): 372409618 Status and Disposition: Patient appears medically stable on current regimen. Discharge to [facility] when bed available. Counseling and/or Coordination of Care Minutes: Coordinated with RN.
[2018-02-10] MEDS ORDERED: Albuterol HFA INHALER* 8 gm MDI INH PRN (11:51)
[2018-02-10] MEDS ORDERED: Mometasone/Formoter 100/5 MDI INH SCH (12:00)
[2018-02-10 15:35] VITALS: BP 127/84
[2018-02-10] MEDS ORDERED: Al Hydrox/Mg Hydrox/Simet LIQ* 30 ML UDC PO PRN (15:54)
[2018-02-10] MEDS ORDERED: Acetaminophen TAB* 325 MG PO PRN (15:54)
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
[2018-02-11] MEDS ORDERED: Vitamin THERAPEUTIC TAB PO SCH (09:00)
== END 2018-02-10 18:25 ==
LOC: ED 20:32 → MEDTELE 02-09 08:47
PROVIDERS: ADMIT Internal Medicine; ATTEND Internal Medicine
DX: R45.851 Suicidal ideations (principal); J44.9 Chronic obstructive pulmonary disease, unspecified; F10.20 Alcohol dependence, uncomplicated; I10 Essential (primary) hypertension; R00.0 Tachycardia, unspecified; Z79.899 Other long term (current) drug therapy; Z87.891 Personal history of nicotine dependence; K70.10 Alcoholic hepatitis without ascites
CPT/HCPCS: 36415; 71045; 80053; 80307; 80320; 80329; 81003; 85025; 96365; 96372; 99285; A9270-GY; G0378; G0480; J1650; J3411

== ENCOUNTER 2018-02-10 15:55 | Inpatient (IN) | payer OTHER, MEDICAID ==
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
[2018-02-11] MEDS ORDERED: Al Hydrox/Mg Hydrox/Simet LIQ* 30 ML UDC PO PRN (14:00)
[2018-02-11] MEDS ORDERED: Acetaminophen TAB* 325 MG PO PRN (14:00)
[2018-02-11] MEDS ORDERED: Nicotine GUM* 2 MG PO PRN (14:00)
[2018-02-11] MEDS ORDERED: Mouth Piece, Nicotine* 1 EACH CARTRIDGE ONE (14:55)
[2018-02-11] MEDS: Nicotine Inhaler* 10 MG AMP INH PRN (14:55)
--- NOTE | 2018-02-11 16:31 | PN ---
Subjective - Subjective Service Type: 33641 Hosp care 25 min moderate complexity Subjective: Patient ambulates with walker and is cooperative with unit routines. When I ask about medications he is taking, he asks to be able to get a manilla folder from his backpack in unit storage. He allows principal technical writer to copy dc instructions from [facility] from 01/06/18. These denote his list of medications and appointments with PCP, Dr Mack and a referral to alcohol and drug cachil dehe. Patient states he does not want a medication for depression as "it would be artificial happiness." He also declines offer of medication for alcohol use disorder. Patient requests nicotine inhaler despite telling me yesterday that he does not smoke. Objective - Appearance Appearance: Thin Framed Dysmorphic Features: Yes Hygiene: Dirty Grooming: Disheveled - Behavior Psychomotor Activities: Normal Exhibits Abnormal Movement: No - Attitude and Relatedness Attitude and Relatedness: Cooperative Eye Contact: Fair - Speech Quality: Unpressured Latencies: Normal Quantity: Appropriate - Mood Patient's Decription of Mood: "Fine" - Affect Observed Affect: Depressed Affect Consistent with: Dysphoria - Thought Process Patient's Thought Process: Circumstantial Thought Content: Yes Passive Wish, Yes Suicidal Planning, No Homicidal Ideation, No Paranoid Ideation - Sensorium Experiencing Hallucinations: No, Sensorium is Clear Type of Hallucinations: Visual: No, Auditory: No, Command: No - Level of Consciousness Level of Consciousness: Alert Orientation: Yes Intact, Yes Orientated to Time, Yes Orientated to Place, Yes Orientated to Person - Impulse Control Impulse Control: Tenuous - Insight and Judgement Insight and Judgement: Poor - Group Participation Particating in Group Activities: Yes - Medication Management Medication Management Adherence: Yes Assessment - Assessment Merits Inpatient Hospitalization: For Immediate Safety, For Stabilization, To Initiate Treatment, For Discharge Planning, Pending Safe DC Plan Inpatient DSM-V Dx: F10.14 Plan - Plan Treatment Plan: Name: ALBERTO POE Birthdate: 1950 [id number] restart medications and continue acute intensive psychiatric treatment. Continued Medication Management: Start Medication Medications: Current Medications Acetaminophen (Tylenol Tab*) 650 mg PO Q4H PRN PRN Reason: for pain; or Temp >101 F Al Hydrox/Mg Hydrox/Simethicone (Maalox Plus*) 30 ml PO Q4H PRN PRN Reason: INDIGESTION Metoprolol Tartrate (Lopressor Tab*) 12.5 mg PO Q12HR [facility] Mometasone Furoate/Formoterol Fumar (Dulera 100/5 Mdi*) 2 puff INH BID [facility] Multivitamins (Theragran Tab*) 1 tab PO DAILY [facility] Nicotine (Nicotine Inhaler*) 10 mg INH Q2H PRN PRN Reason: CRAVING Last Admin: 02/11/18 14:55 Dose: 10 mg Nicotine (Nicotine Patch 7 Mg/24 Hr*) 1 patch TRANSDERM DAILY@0800 [facility] Nicotine Polacrilex (Nicotine Gum*) 2 mg PO Q2H PRN PRN Reason: CRAVING Pharmacy Profile Note (Nicotine Patch Removal Note*) 1 note PATCH OFF 1999 [facility] Thiamine HCl (Vitamin B-1 Tab*) 100 mg PO DAILY [facility] - Discharge Plan Discharge Plan: Drug/Alcohol Rehab
[2018-02-11] MEDS: Mometasone/Formoter 100/5 MDI INH SCH (20:37)
[2018-02-11] MEDS: Mirtazapine TAB* 15 MG PO SCH (20:40)
[2018-02-11] MEDS: Metoprolol Tartrate TAB* 25 MG PO SCH (20:40)
[2018-02-12 07:23] LABS: Hematocrit 36 % (42-52); Hemoglobin 12.1 g/dl (14.0-18.0); Mean Corpuscular HGB Conc 34 g/dl (31-36); Mean Corpuscular Hemoglobin 32 pg (27-31); Mean Corpuscular Volume 95 fL (80-94); Mean Platelet Volume 9.7 um3 (7.4-10.4); Platelet Count 166 10^3/ul (150-450); Red Blood Count 3.76 10^6/ul (4.0-5.4); Red Cell Distribution Width 18 % (10.5-15); White Blood Count 5.4 10^3/ul (3.5-10.8)
[2018-02-12 07:57] LABS: EGFR Non-African American 123.3 (>60)
[2018-02-12 08:35] LABS: ABS Basophils 0 10^3/ul (0-0.2); ABS Eosinophils 0.1 10^3/ul (0-0.6); ABS Lymphocytes 1.4 10^3/ul (1.0-4.8); ABS Monocytes 0.9 10^3/ul (0-0.8); ABS Neutrophils 2.9 10^3/ul (1.5-7.7); ABS Nucleated RBC 0 10^3/ul; Eosinophil % 2.6 % (0-6); Lymphocyte % 26.9 % (25-47); Nucleated Red Blood Cells % 0
[2018-02-12] MEDS: Nicotine PATCH 7 MG/24 HR* PATCH TRANSDERM SCH (09:19)
[2018-02-12] MEDS: Metoprolol Tartrate TAB* 25 MG PO SCH ×2 (09:19→20:27)
[2018-02-12] MEDS: Mometasone/Formoter 100/5 MDI INH SCH ×2 (09:20→20:27)
[2018-02-12] MEDS: Vitamin THERAPEUTIC TAB PO SCH (09:20)
--- NOTE | 2018-02-12 10:38 | PN ---
Subjective - Subjective Service Type: 73024 Hosp care 15 min low complexity Subjective: Patient is sitting and reading newspaper upon approach. He presents as dysphoric with flat affect. He is notified of lab results and declines iron supplement. He reports difficulty initiating sleep then was able to stay asleep until awakened for phlebotomy. Patient is ambulating with cane and reports he "found this in my room." He prefers this over using a walker. He declines offer of PT consult. Patient agrees to referrals for inpatient substance use treatment. He states he had a "horrible experience" at [facility] in [facility] 10 years ago. However, he is open to suggestions for other facilities. Objective - Appearance Appearance: Thin Framed Dysmorphic Features: Yes Hygiene: Normal Grooming: Well Kept - Behavior Psychomotor Activities: Normal Exhibits Abnormal Movement: No - Attitude and Relatedness Attitude and Relatedness: Cooperative Eye Contact: Fair - Speech Quality: Unpressured Latencies: Normal Quantity: Appropriate - Mood Patient's Decription of Mood: "Okay" - Affect Observed Affect: Depressed Affect Consistent with: Dysphoria - Thought Process Patient's Thought Process: Coherent, Goal Directed Thought Content: Yes Passive Wish, No Suicidal Planning, No Homicidal Ideation, No Paranoid Ideation - Sensorium Experiencing Hallucinations: No, Sensorium is Clear Type of Hallucinations: Visual: Yes, Auditory: Yes, Command: Yes - Level of Consciousness Level of Consciousness: Alert Orientation: Yes Intact, Yes Orientated to Time, Yes Orientated to Place, Yes Orientated to Person - Impulse Control Impulse Control: Tenuous - Insight and Judgement Insight and Judgement: Fair - Group Participation Particating in Group Activities: Yes - Medication Management Medication Management Adherence: Yes Assessment - Assessment Merits Inpatient Hospitalization: For Immediate Safety, For Stabilization, To Initiate Treatment Inpatient DSM-V Dx: F10.14 Clinical Impression: 67yo white male with significant alcohol use history. He presented to ED with c /o suicidal ideation and was admitted to telemetry floor for monitoring during alcohol detox. He continues to endorse suicidal ideation and merits hospitalization for immediate safety and stabilization. He is agreeable to referrals for inpatient substance use treatment. Plan - Plan Treatment Plan: Name: ALBERTO POE Birthdate: 1950 [id number] continue acute intensive psychiatric treatment. allow staff pass, patient to remain on q15min checks due to high fall risk. initiate SOLOMON programming and refer to substance use treatment. Continued Medication Management: Start Medication Medications: Current Medications Acetaminophen (Tylenol Tab*) 650 mg PO Q4H PRN PRN Reason: for pain; or Temp >101 F Al Hydrox/Mg Hydrox/Simethicone (Maalox Plus*) 30 ml PO Q4H PRN PRN Reason: INDIGESTION Metoprolol Tartrate (Lopressor Tab*) 12.5 mg PO Q12HR [facility] Last Admin: 02/12/18 09:19 Dose: 12.5 mg Mirtazapine (Remeron Tab*) 15 mg PO BEDTIME [facility] Last Admin: 02/11/18 20:40 Dose: 15 mg Mometasone Furoate/Formoterol Fumar (Dulera 100/5 Mdi*) 2 puff INH BID [facility] Last Admin: 02/12/18 09:20 Dose: Not Given Multivitamins (Theragran Tab*) 1 tab PO DAILY [facility] Last Admin: 02/12/18 09:20 Dose: 1 tab Nicotine (Nicotine Inhaler*) 10 mg INH Q2H PRN PRN Reason: CRAVING Last Admin: 02/11/18 14:55 Dose: 10 mg Nicotine (Nicotine Patch 7 Mg/24 Hr*) 1 patch TRANSDERM DAILY@0800 [facility] Last Admin: 02/12/18 09:19 Dose: Not Given Nicotine Polacrilex (Nicotine Gum*) 2 mg PO Q2H PRN PRN Reason: CRAVING Pharmacy Profile Note (Nicotine Patch Removal Note*) 1 note PATCH OFF 1999 [facility] Thiamine HCl (Vitamin B-1 Tab*) 100 mg PO DAILY [facility] - Discharge Plan Discharge Plan: Drug/Alcohol Rehab
[2018-02-12] MEDS: Thiamine TAB* 100 MG TAB PO SCH (14:07)
[2018-02-12] MEDS: Nicotine Patch Removal NOTE PATCH OFF SCH (20:25)
[2018-02-12] MEDS: Mirtazapine TAB* 15 MG PO SCH (20:27)
[2018-02-12] MEDS: CMC:Melatonin (NF) 3 MG TAB PO SCH (20:49)
[2018-02-12] MEDS ORDERED: CMC:Melatonin (NF) 3 MG TAB PO SCH (21:00)
[2018-02-13] MEDS: Vitamin THERAPEUTIC TAB PO SCH (07:58)
[2018-02-13] MEDS: Metoprolol Tartrate TAB* 25 MG PO SCH ×2 (07:58→21:09)
[2018-02-13] MEDS: Thiamine TAB* 100 MG TAB PO SCH (07:58)
[2018-02-13] MEDS: Mometasone/Formoter 100/5 MDI INH SCH (07:59)
[2018-02-13] MEDS: Nicotine PATCH 7 MG/24 HR* PATCH TRANSDERM SCH (07:59)
[2018-02-13] MEDS ORDERED: Tuberculin PPD* 5 TU/DOSE/0.1 ML INTRADERM ONE (15:00)
[2018-02-13] MEDS ORDERED: PPD test dose* 5 TU/0.1 ML TEST (*USE PPD ORDER SET*) INTRADERM SCH (15:00)
--- NOTE | 2018-02-13 16:48 | PN ---
<MingoKaylyn - Last Filed: 02/13/18 16:40> Subjective - Subjective Service Type: 50081 Hosp care 25 min moderate complexity Subjective: He is pleasant on approach; states he is interested in a medication to improve his mood; will begin trial of Sertaline 50 mg/qd. Went to AA meeting last night and felt it was helpful, he is interested in not drinking, psychoeducation re deterrent medications. He remains passively suicidal with a plan to "get real drunk and jump in front of a train as a last resort". He expresses some insight in the context of his alcohol use stating that a couple of beers in never enough. Participating in groups. Objective - Appearance Appearance: Thin Framed Dysmorphic Features: Yes Hygiene: Normal Grooming: Fairly Well Kept - Behavior Psychomotor Activities: Abnormal-Decreased Exhibits Abnormal Movement: Yes - Attitude and Relatedness Attitude and Relatedness: Cooperative Eye Contact: Good - Speech Quality: Unpressured Latencies: Normal Quantity: Appropriate - Mood Patient's Decription of Mood: "Upset" - Affect Observed Affect: Depressed Affect Consistent with: Dysphoria - Thought Process Patient's Thought Process: Coherent Thought Content: Yes Passive Wish, Yes Suicidal Planning, No Homicidal Ideation, No Paranoid Ideation - Sensorium Experiencing Hallucinations: No, Sensorium is Clear Type of Hallucinations: Visual: No, Auditory: No, Command: No - Level of Consciousness Level of Consciousness: Alert Orientation: Yes Intact, Yes Orientated to Time, Yes Orientated to Place, Yes Orientated to Person - Impulse Control Impulse Control: Impaired - Insight and Judgement Insight and Judgement: Poor - Group Participation Particating in Group Activities: Yes - Medication Management Medication Management Adherence: Yes Assessment - Assessment Merits Inpatient Hospitalization: For Immediate Safety, For Stabilization, For Discharge Planning Inpatient DSM-V Dx: F10.14 Clinical Impression: 67 y.o. white male with significant alcohol use history. Presented to ED with c/ o suicidal ideation, admitted to telemetry floor for monitoring of detox from alcohol. He continues to endorse suicidal ideation and merits continued hospitalization for immediate safety, trial of medication and discharge planning. Plan - Plan Treatment Plan: Name: ALBERTO POE Birthdate: 1950 [id number] Medications: Current Medications Acetaminophen (Tylenol Tab*) 650 mg PO Q4H PRN PRN Reason: for pain; or Temp >101 F Al Hydrox/Mg Hydrox/Simethicone (Maalox Plus*) 30 ml PO Q4H PRN PRN Reason: INDIGESTION Melatonin (Melatonin (Nf)) 3 mg PO BEDTIME [facility] Last Admin: 02/12/18 20:49 Dose: 3 mg Metoprolol Tartrate (Lopressor Tab*) 12.5 mg PO Q12HR [facility] Last Admin: 02/13/18 07:58 Dose: 12.5 mg Mirtazapine (Remeron Tab*) 15 mg PO BEDTIME [facility] Last Admin: 02/12/18 20:27 Dose: 15 mg Multivitamins (Theragran Tab*) 1 tab PO DAILY [facility] Last Admin: 02/13/18 07:58 Dose: 1 tab Nicotine (Nicotine Inhaler*) 10 mg INH Q2H PRN PRN Reason: CRAVING Last Admin: 02/11/18 14:55 Dose: 10 mg Nicotine (Nicotine Patch 7 Mg/24 Hr*) 1 patch TRANSDERM DAILY@0800 [facility] Last Admin: 02/13/18 07:59 Dose: Not Given Nicotine Polacrilex (Nicotine Gum*) 2 mg PO Q2H PRN PRN Reason: CRAVING Pharmacy Profile Note (Nicotine Patch Removal Note*) 1 note PATCH OFF 1999 [facility] Last Admin: 02/12/18 20:25 Dose: Not Given Pharmacy Profile Note (Ppd Reading Note*) 1 note .SEE ORDER .ONCE [facility] Stop: 02/15/18 23:59 Sertraline HCl (Zoloft*) 50 mg PO BEDTIME [facility] Thiamine HCl (Vitamin B-1 Tab*) 100 mg PO DAILY [facility] Last Admin: 02/13/18 07:58 Dose: 100 mg <Tammie Romero - Last Filed: 02/14/18 13:02> Subjective - Subjective Subjective: above note reviewed and discussed with patient. connor NPP Plan - Plan Treatment Plan: Name: ALBERTO POE Birthdate: 1950 [id number] continue acute intensive psychiatric treatment. trial sertraline for depression. discharge planning to continue collaboration with APS for assisted living placement. patient may have staff pass, remain on 15min checks due to fall risk. Continued Medication Management: Start Medication Medications: Current Medications Acetaminophen (Tylenol Tab*) 650 mg PO Q4H PRN PRN Reason: for pain; or Temp >101 F Al Hydrox/Mg Hydrox/Simethicone (Maalox Plus*) 30 ml PO Q4H PRN PRN Reason: INDIGESTION Melatonin (Melatonin (Nf)) 3 mg PO BEDTIME [facility] Last Admin: 02/13/18 21:08 Dose: 3 mg Metoprolol Tartrate (Lopressor Tab*) 12.5 mg PO Q12HR [facility] Last Admin: 02/14/18 08:02 Dose: 12.5 mg Mirtazapine (Remeron Tab*) 15 mg PO BEDTIME [facility] Last Admin: 02/13/18 21:08 Dose: 15 mg Multivitamins (Theragran Tab*) 1 tab PO DAILY [facility] Last Admin: 02/14/18 08:03 Dose: 1 tab Nicotine (Nicotine Inhaler*) 10 mg INH Q2H PRN PRN Reason: CRAVING Last Admin: 02/11/18 14:55 Dose: 10 mg Nicotine (Nicotine Patch 7 Mg/24 Hr*) 1 patch TRANSDERM DAILY@0800 [facility] Last Admin: 02/14/18 10:44 Dose: Not Given Nicotine Polacrilex (Nicotine Gum*) 2 mg PO Q2H PRN PRN Reason: CRAVING Pharmacy Profile Note (Nicotine Patch Removal Note*) 1 note PATCH OFF 1999 [facility] Last Admin: 02/13/18 21:10 Dose: Not Given Pharmacy Profile Note (Ppd Reading Note*) 1 note .SEE ORDER .ONCE [facility] Stop: 02/17/18 09:59 Sertraline HCl (Zoloft*) 50 mg PO BEDTIME [facility] Last Admin: 02/13/18 21:08 Dose: 50 mg Thiamine HCl (Vitamin B-1 Tab*) 100 mg PO DAILY [facility] Last Admin: 02/14/18 08:03 Dose: 100 mg - Discharge Plan Discharge Plan: Outpatient Follow Up
--- NOTE | 2018-02-13 16:52 | PN ---
MHU: Group Therapy Note - Service Type Service Type: [id number] Group Psychotherapy - Medication Education Group: Patient was attentive and participatory in group, and remained in good behavioral control. Patient expressed positive insights regarding relevant treatment interventions. Patient stated understanding of material discussed and had appropriate questions.
[2018-02-13] MEDS ORDERED: Ferrous Gluconate TAB* 324 MG TAB PO SCH (21:00)
[2018-02-13] MEDS ORDERED: Docusate CAP* 100 MG PO SCH (21:00)
[2018-02-13] MEDS: CMC:Melatonin (NF) 3 MG TAB PO SCH (21:08)
[2018-02-13] MEDS: Sertraline* 50 MG TAB PO SCH (21:08)
[2018-02-13] MEDS: Mirtazapine TAB* 15 MG PO SCH (21:08)
[2018-02-13] MEDS: Nicotine Patch Removal NOTE PATCH OFF SCH (21:10)
[2018-02-14] MEDS: Metoprolol Tartrate TAB* 25 MG PO SCH ×2 (08:02→20:27)
[2018-02-14] MEDS: Vitamin THERAPEUTIC TAB PO SCH (08:03)
[2018-02-14] MEDS: Thiamine TAB* 100 MG TAB PO SCH (08:03)
[2018-02-14] MEDS ORDERED: PPD test dose* 5 TU/0.1 ML TEST (*USE PPD ORDER SET*) INTRADERM ONE (10:00)
[2018-02-14] MEDS: Nicotine PATCH 7 MG/24 HR* PATCH TRANSDERM SCH (10:44)
--- NOTE | 2018-02-14 13:08 | PN ---
MHU: Group Therapy Note - Service Type Service Type: [id number] Group Psychotherapy - Cognitive Behavioral Group Therapy ( CBT):Patient was attentive and participatory in CBT programming this morning, and remained in good behavioral control. Patient expressed positive insights regarding relevant treatment interventions and goals.
--- NOTE | 2018-02-14 15:20 | PN ---
<Kaylyn Aguila - Last Filed: 02/14/18 15:09> Subjective - Subjective Service Type: 71257 Hosp care 15 min low complexity Subjective: Elie states his mood is "ok" overall, able to identify sadness over peers leaving that he made connections with. States he feels safe on unit, is fearful that if discharged he may suicide. Reports he slept well, having some nausea after initial Sertraline dose, he was made aware that this should pass within a few days. He talks about being frightened of being "put out on the street", reinforced that staff here is taking steps to assist with future housing. Objective - Appearance Appearance: Thin Framed Dysmorphic Features: Yes Hygiene: Normal Grooming: Fairly Well Kept - Behavior Psychomotor Activities: Abnormal-Decreased Exhibits Abnormal Movement: Yes - Attitude and Relatedness Attitude and Relatedness: Cooperative Eye Contact: Fair - Speech Quality: Unpressured Latencies: Normal Quantity: Appropriate - Mood Patient's Decription of Mood: "Okay" - Affect Observed Affect: Depressed Affect Consistent with: Dysphoria - Thought Process Patient's Thought Process: Coherent, Goal Directed Thought Content: Yes Passive Wish, Yes Suicidal Planning, No Homicidal Ideation, No Paranoid Ideation - Sensorium Experiencing Hallucinations: No, Sensorium is Clear Type of Hallucinations: Visual: No, Auditory: No, Command: No - Level of Consciousness Orientation: Yes Intact, Yes Orientated to Time, Yes Orientated to Place, Yes Orientated to Person - Impulse Control Impulse Control: Impaired - Insight and Judgement Insight and Judgement: Poor - Group Participation Particating in Group Activities: Yes - Medication Management Medication Management Adherence: Yes Assessment - Assessment Merits Inpatient Hospitalization: For Immediate Safety, Consolidate Improvements , For Discharge Planning Inpatient DSM-V Dx: F10.14 Clinical Impression: 67 y.o. white male with significant alcohol use history. Presented to ED with c/ o suicidal ideation, admitted to telemetry floor for monitoring of detox from alcohol. He continues to endorse suicidal ideation and merits continued hospitalization for immediate safety, consolidation of improvements and discharge planning. Plan - Plan Treatment Plan: Name: ALBERTO POE Birthdate: 1950 [id number] Medications: Current Medications Acetaminophen (Tylenol Tab*) 650 mg PO Q4H PRN PRN Reason: for pain; or Temp >101 F Al Hydrox/Mg Hydrox/Simethicone (Maalox Plus*) 30 ml PO Q4H PRN PRN Reason: INDIGESTION Melatonin (Melatonin (Nf)) 3 mg PO BEDTIME [facility] Last Admin: 02/13/18 21:08 Dose: 3 mg Metoprolol Tartrate (Lopressor Tab*) 12.5 mg PO Q12HR [facility] Last Admin: 02/14/18 08:02 Dose: 12.5 mg Mirtazapine (Remeron Tab*) 15 mg PO BEDTIME [facility] Last Admin: 02/13/18 21:08 Dose: 15 mg Multivitamins (Theragran Tab*) 1 tab PO DAILY [facility] Last Admin: 02/14/18 08:03 Dose: 1 tab Nicotine (Nicotine Inhaler*) 10 mg INH Q2H PRN PRN Reason: CRAVING Last Admin: 02/11/18 14:55 Dose: 10 mg Nicotine (Nicotine Patch 7 Mg/24 Hr*) 1 patch TRANSDERM DAILY@0800 [facility] Last Admin: 02/14/18 10:44 Dose: Not Given Nicotine Polacrilex (Nicotine Gum*) 2 mg PO Q2H PRN PRN Reason: CRAVING Pharmacy Profile Note (Nicotine Patch Removal Note*) 1 note PATCH OFF 1999 [facility] Last Admin: 02/13/18 21:10 Dose: Not Given Pharmacy Profile Note (Ppd Reading Note*) 1 note .SEE ORDER .ONCE [facility] Stop: 02/17/18 09:59 Sertraline HCl (Zoloft*) 50 mg PO BEDTIME [facility] Last Admin: 02/13/18 21:08 Dose: 50 mg Thiamine HCl (Vitamin B-1 Tab*) 100 mg PO DAILY [facility] Last Admin: 02/14/18 08:03 Dose: 100 mg <Tammie Romero - Last Filed: 02/14/18 16:03> Subjective - Subjective Subjective: above note reviewed and discussed with studentCoral DUFF Plan - Plan Treatment Plan: Name: ALBERTO POE Birthdate: 1950 [id number] continue acute intensive psychiatric treatment. allow staff pass and use of comfort room. remain on q15min observation due to fall risk. discharge planning to include APS. Continued Medication Management: Start Medication Medications: Current Medications Acetaminophen (Tylenol Tab*) 650 mg PO Q4H PRN PRN Reason: for pain; or Temp >101 F Al Hydrox/Mg Hydrox/Simethicone (Maalox Plus*) 30 ml PO Q4H PRN PRN Reason: INDIGESTION Melatonin (Melatonin (Nf)) 3 mg PO BEDTIME [facility] Last Admin: 02/13/18 21:08 Dose: 3 mg Metoprolol Tartrate (Lopressor Tab*) 12.5 mg PO Q12HR [facility] Last Admin: 02/14/18 08:02 Dose: 12.5 mg Mirtazapine (Remeron Tab*) 15 mg PO BEDTIME [facility] Last Admin: 02/13/18 21:08 Dose: 15 mg Multivitamins (Theragran Tab*) 1 tab PO DAILY [facility] Last Admin: 02/14/18 08:03 Dose: 1 tab Nicotine (Nicotine Inhaler*) 10 mg INH Q2H PRN PRN Reason: CRAVING Last Admin: 02/11/18 14:55 Dose: 10 mg Nicotine (Nicotine Patch 7 Mg/24 Hr*) 1 patch TRANSDERM DAILY@0800 [facility] Last Admin: 02/14/18 10:44 Dose: Not Given Nicotine Polacrilex (Nicotine Gum*) 2 mg PO Q2H PRN PRN Reason: CRAVING Pharmacy Profile Note (Nicotine Patch Removal Note*) 1 note PATCH OFF 1999 [facility] Last Admin: 02/13/18 21:10 Dose: Not Given Pharmacy Profile Note (Ppd Reading Note*) 1 note .SEE ORDER .ONCE [facility] Stop: 02/17/18 09:59 Sertraline HCl (Zoloft*) 50 mg PO BEDTIME [facility] Last Admin: 02/13/18 21:08 Dose: 50 mg Thiamine HCl (Vitamin B-1 Tab*) 100 mg PO DAILY [facility] Last Admin: 02/14/18 08:03 Dose: 100 mg - Discharge Plan Discharge Plan: Outpatient Follow Up
[2018-02-14] MEDS: Sertraline* 50 MG TAB PO SCH (20:27)
[2018-02-14] MEDS: CMC:Melatonin (NF) 3 MG TAB PO SCH (20:27)
[2018-02-14] MEDS: Mirtazapine TAB* 15 MG PO SCH (20:27)
[2018-02-14] MEDS: Nicotine Patch Removal NOTE PATCH OFF SCH (20:29)
[2018-02-15] MEDS: Nicotine Inhaler* 10 MG AMP INH PRN (09:12)
[2018-02-15] MEDS: Thiamine TAB* 100 MG TAB PO SCH (09:13)
[2018-02-15] MEDS: Vitamin THERAPEUTIC TAB PO SCH (09:13)
[2018-02-15] MEDS: Metoprolol Tartrate TAB* 25 MG PO SCH ×2 (09:13→20:26)
[2018-02-15] MEDS: Nicotine PATCH 7 MG/24 HR* PATCH TRANSDERM SCH (09:15)
[2018-02-15] MEDS: Sertraline* 50 MG TAB PO SCH (20:26)
[2018-02-15] MEDS: CMC:Melatonin (NF) 3 MG TAB PO SCH (20:26)
[2018-02-15] MEDS: Mirtazapine TAB* 15 MG PO SCH (20:26)
[2018-02-15] MEDS: Nicotine Patch Removal NOTE PATCH OFF SCH (20:26)
[2018-02-16] MEDS: Metoprolol Tartrate TAB* 25 MG PO SCH ×2 (08:26→20:25)
[2018-02-16] MEDS: Vitamin THERAPEUTIC TAB PO SCH (08:26)
[2018-02-16] MEDS: Thiamine TAB* 100 MG TAB PO SCH (08:26)
[2018-02-16] MEDS: Nicotine PATCH 7 MG/24 HR* PATCH TRANSDERM SCH (08:28)
[2018-02-16] MEDS ORDERED: PPD Reading 48-72 HRS NOTE SCH (10:00)
[2018-02-16] MEDS ORDERED: PPD Reading NOTE* (*USE PPD ORDER SET*) ONE (14:20)
--- NOTE | 2018-02-16 15:48 | PN ---
Subjective - Subjective Date of Service: 02/16/18 Service Type: [id number] Hosp care 25 min moderate complexity Subjective: Mr. Poe continues to verbalize that he didn't want to go back to the same hosing situation as he didn't do well there and did have plenty of time to drink and become suicidal. He doesn't have any friend or significant others. Not enough income to afford a decent housing and good food. Lot of time in hands to be bore and pickup alcohol and drink only. Has been drinking for last 50 years and never got any help. He has been considering a half-way inpatient Alcohol Rehab program if that's what the treatment team recommends. Doing fine on the unit, playing his guitar and mostly by himself. Objective - Appearance Appearance: Thin Framed Dysmorphic Features: No Hygiene: Normal Grooming: Disheveled - Behavior Psychomotor Activities: Abnormal-Decreased Exhibits Abnormal Movement: No - Attitude and Relatedness Attitude and Relatedness: Cooperative Eye Contact: Poor - Speech Quality: Unpressured Latencies: Normal Quantity: Appropriate - Mood Patient's Decription of Mood: "Fine" - Affect Observed Affect: Constricted - Thought Process Patient's Thought Process: Coherent, Goal Directed, Circumstantial Thought Content: Yes Passive Wish, No Suicidal Planning, No Homicidal Ideation, No Paranoid Ideation - Sensorium Experiencing Hallucinations: No, Sensorium is Clear Type of Hallucinations: Visual: No, Auditory: No, Command: No - Level of Consciousness Level of Consciousness: Alert Orientation: Yes Intact, Yes Orientated to Time, Yes Orientated to Place, Yes Orientated to Person - Impulse Control Impulse Control: Tenuous - Insight and Judgement Insight and Judgement: Poor - Group Participation Particating in Group Activities: Yes - Medication Management Medication Management Adherence: Yes Assessment - Assessment Merits Inpatient Hospitalization: For Immediate Safety, For Stabilization, Pending Safe DC Plan Inpatient DSM-V Dx: F10.14 Clinical Impression: Still verbalizing suicidal threats if discharged to his previous housing without more supports and structures. Requesting help for alcohol use d/o preferably in a joint terminal attack controller inpatient setting. Plan - Plan Treatment Plan: Name: ALBERTO POE Birthdate: 1950 [id number] Continued Medication Management: Continue Outpt Medication Medications: Current Medications Acetaminophen (Tylenol Tab*) 650 mg PO Q4H PRN PRN Reason: for pain; or Temp >101 F Last Admin: 02/15/18 20:29 Dose: 650 mg Al Hydrox/Mg Hydrox/Simethicone (Maalox Plus*) 30 ml PO Q4H PRN PRN Reason: INDIGESTION Melatonin (Melatonin (Nf)) 3 mg PO BEDTIME [facility] Last Admin: 02/15/18 20:26 Dose: 3 mg Metoprolol Tartrate (Lopressor Tab*) 12.5 mg PO Q12HR [facility] Last Admin: 02/16/18 08:26 Dose: 12.5 mg Mirtazapine (Remeron Tab*) 15 mg PO BEDTIME [facility] Last Admin: 02/15/18 20:26 Dose: 15 mg Multivitamins (Theragran Tab*) 1 tab PO DAILY [facility] Last Admin: 02/16/18 08:26 Dose: 1 tab Nicotine (Nicotine Inhaler*) 10 mg INH Q2H PRN PRN Reason: CRAVING Last Admin: 02/15/18 09:12 Dose: 10 mg Nicotine (Nicotine Patch 7 Mg/24 Hr*) 1 patch TRANSDERM DAILY@0800 [facility] Last Admin: 02/16/18 08:28 Dose: Not Given Nicotine Polacrilex (Nicotine Gum*) 2 mg PO Q2H PRN PRN Reason: CRAVING Pharmacy Profile Note (Nicotine Patch Removal Note*) 1 note PATCH OFF 1999 [facility] Last Admin: 02/15/18 20:26 Dose: Not Given Pharmacy Profile Note (Ppd Reading Note*) 1 note .SEE ORDER .ONCE [facility] Stop: 02/17/18 09:59 Last Admin: 02/16/18 11:40 Dose: 1 note Sertraline HCl (Zoloft*) 50 mg PO BEDTIME [facility] Last Admin: 02/15/18 20:26 Dose: 50 mg Thiamine HCl (Vitamin B-1 Tab*) 100 mg PO DAILY [facility] Last Admin: 02/16/18 08:26 Dose: 100 mg - Discharge Plan Discharge Plan: Drug/Alcohol Rehab
[2018-02-16] MEDS: Nicotine Inhaler* 10 MG AMP INH PRN (20:15)
[2018-02-16] MEDS: CMC:Melatonin (NF) 3 MG TAB PO SCH (20:26)
[2018-02-16] MEDS: Sertraline* 50 MG TAB PO SCH (20:26)
[2018-02-16] MEDS: Mirtazapine TAB* 15 MG PO SCH (20:26)
[2018-02-16] MEDS: Nicotine Patch Removal NOTE PATCH OFF SCH (20:26)
[2018-02-17] MEDS: Nicotine PATCH 7 MG/24 HR* PATCH TRANSDERM SCH (08:58)
[2018-02-17] MEDS: Metoprolol Tartrate TAB* 25 MG PO SCH ×2 (08:59→20:38)
[2018-02-17] MEDS: Vitamin THERAPEUTIC TAB PO SCH (09:02)
[2018-02-17] MEDS: Thiamine TAB* 100 MG TAB PO SCH (09:02)
--- NOTE | 2018-02-17 11:11 | PN ---
MHU: Group Therapy Note - Service Type Service Type: [id number] Group Psychotherapy - Cognitive Behavioral Group Therapy ( CBT):Patient was attentive and participatory in CBT programming this morning, and remained in good behavioral control. Patient expressed positive insights regarding relevant treatment interventions and goals.
--- NOTE | 2018-02-17 11:21 | PN ---
Subjective - Subjective Service Type: 85588 Hosp care 15 min low complexity Subjective: Patient reports his weekend was "fun" and spent free time walking about unit and reading. He states he was frustrated when he felt that the on-call psychiatrist laughed at him and called him foolish for allowing a person to use his debit card. Patient states "I had an explosion" and was verbally aggressive. He states that he already feels foolish and berates himself for this. We discuss coping with difficult emotions and learning to express anger in a safe manner. Patient states he is noticing improved mood with sertraline. He continues to endorse suicidal ideation to staff, usually in context of fear of being discharged without housing. Objective - Appearance Appearance: Thin Framed Dysmorphic Features: No Hygiene: Normal Grooming: Fairly Well Kept - Behavior Psychomotor Activities: Normal Exhibits Abnormal Movement: No - Attitude and Relatedness Attitude and Relatedness: Cooperative Eye Contact: Good - Speech Quality: Unpressured Latencies: Normal Quantity: Appropriate - Mood Patient's Decription of Mood: "Good" - Affect Observed Affect: Good Affect Consistent with: Euthymia - Thought Process Patient's Thought Process: Coherent, Goal Directed Thought Content: Yes Passive Wish, Yes Suicidal Planning, No Homicidal Ideation, No Paranoid Ideation - Sensorium Experiencing Hallucinations: No, Sensorium is Clear Type of Hallucinations: Visual: No, Auditory: No, Command: No - Level of Consciousness Level of Consciousness: Alert Orientation: Yes Intact, Yes Orientated to Time, Yes Orientated to Place, Yes Orientated to Person - Impulse Control Impulse Control: Tenuous - Insight and Judgement Insight and Judgement: Fair - Group Participation Particating in Group Activities: Yes - Medication Management Medication Management Adherence: Yes Assessment - Assessment Merits Inpatient Hospitalization: For Immediate Safety, For Stabilization, Pending Safe DC Plan Inpatient DSM-V Dx: F10.14 Clinical Impression: 67yo white male with significant alcohol use history. He presented to ED with c /o suicidal ideation and was admitted to telemetry floor for monitoring during alcohol detox. He continues to endorse suicidal ideation and merits hospitalization for immediate safety and stabilization. Plan - Plan Treatment Plan: Name: ALBERTO POE Birthdate: 1950 [id number] continue acute intensive psychiatric treatment. allow staff pass and use of comfort room. remain on q15min observation due to fall risk. discharge planning to include APS. Continued Medication Management: Start Medication Medications: Current Medications Acetaminophen (Tylenol Tab*) 650 mg PO Q4H PRN PRN Reason: for pain; or Temp >101 F Last Admin: 02/15/18 20:29 Dose: 650 mg Al Hydrox/Mg Hydrox/Simethicone (Maalox Plus*) 30 ml PO Q4H PRN PRN Reason: INDIGESTION Melatonin (Melatonin (Nf)) 3 mg PO BEDTIME [facility] Last Admin: 02/16/18 20:26 Dose: 3 mg Metoprolol Tartrate (Lopressor Tab*) 12.5 mg PO Q12HR [facility] Last Admin: 02/17/18 08:59 Dose: 12.5 mg Mirtazapine (Remeron Tab*) 15 mg PO BEDTIME [facility] Last Admin: 02/16/18 20:26 Dose: 15 mg Multivitamins (Theragran Tab*) 1 tab PO DAILY [facility] Last Admin: 02/17/18 09:02 Dose: 1 tab Nicotine (Nicotine Inhaler*) 10 mg INH Q2H PRN PRN Reason: CRAVING Last Admin: 02/16/18 20:15 Dose: 10 mg Nicotine (Nicotine Patch 7 Mg/24 Hr*) 1 patch TRANSDERM DAILY@0800 [facility] Last Admin: 02/17/18 08:58 Dose: Not Given Nicotine Polacrilex (Nicotine Gum*) 2 mg PO Q2H PRN PRN Reason: CRAVING Pharmacy Profile Note (Nicotine Patch Removal Note*) 1 note PATCH OFF 1999 [facility] Last Admin: 02/16/18 20:26 Dose: Not Given Sertraline HCl (Zoloft*) 50 mg PO BEDTIME [facility] Last Admin: 02/16/18 20:26 Dose: 50 mg Thiamine HCl (Vitamin B-1 Tab*) 100 mg PO DAILY [facility] Last Admin: 02/17/18 09:02 Dose: 100 mg - Discharge Plan Discharge Plan: Outpatient Follow Up
[2018-02-17] MEDS: Nicotine Patch Removal NOTE PATCH OFF SCH (19:47)
[2018-02-17] MEDS: Sertraline* 50 MG TAB PO SCH (20:37)
[2018-02-17] MEDS: Mirtazapine TAB* 15 MG PO SCH (20:37)
[2018-02-17] MEDS: CMC:Melatonin (NF) 3 MG TAB PO SCH (20:37)
[2018-02-17] MEDS: Nicotine Inhaler* 10 MG AMP INH PRN (20:37)
[2018-02-18] MEDS: Thiamine TAB* 100 MG TAB PO SCH (08:29)
[2018-02-18] MEDS: Vitamin THERAPEUTIC TAB PO SCH (08:29)
[2018-02-18] MEDS: Nicotine PATCH 7 MG/24 HR* PATCH TRANSDERM SCH (08:29)
[2018-02-18] MEDS: Metoprolol Tartrate TAB* 25 MG PO SCH ×2 (08:29→20:39)
[2018-02-18] MEDS: Nicotine Patch Removal NOTE PATCH OFF SCH (20:38)
[2018-02-18] MEDS: Mirtazapine TAB* 15 MG PO SCH (20:39)
[2018-02-18] MEDS: Sertraline* 50 MG TAB PO SCH (20:39)
[2018-02-18] MEDS: CMC:Melatonin (NF) 3 MG TAB PO SCH (20:40)
[2018-02-19] MEDS: Vitamin THERAPEUTIC TAB PO SCH (07:36)
[2018-02-19] MEDS: Thiamine TAB* 100 MG TAB PO SCH (07:36)
[2018-02-19] MEDS: Metoprolol Tartrate TAB* 25 MG PO SCH ×2 (07:37→20:28)
[2018-02-19] MEDS: Nicotine PATCH 7 MG/24 HR* PATCH TRANSDERM SCH (07:38)
--- NOTE | 2018-02-19 11:19 | PN ---
MHU: Group Therapy Note - Service Type Service Type: [id number] Group Psychotherapy - Cognitive Behavioral Group Therapy ( CBT):Patient attended CBT programming this morning and presented with flat affect that did not vary with discussion. Although responsive to direct prompts to respond to questions, patient did not engage in spontaneous conversation
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
[2018-02-19] MEDS: CMC:Melatonin (NF) 3 MG TAB PO SCH (20:28)
[2018-02-19] MEDS: Sertraline* 50 MG TAB PO SCH (20:28)
[2018-02-19] MEDS: Mirtazapine TAB* 15 MG PO SCH (20:28)
[2018-02-19] MEDS: Nicotine Patch Removal NOTE PATCH OFF SCH (20:29)
[2018-02-20] MEDS: Metoprolol Tartrate TAB* 25 MG PO SCH ×2 (08:31→20:25)
[2018-02-20] MEDS: Vitamin THERAPEUTIC TAB PO SCH (08:31)
[2018-02-20] MEDS: Thiamine TAB* 100 MG TAB PO SCH (08:31)
[2018-02-20] MEDS: Nicotine PATCH 7 MG/24 HR* PATCH TRANSDERM SCH (08:32)
--- NOTE | 2018-02-20 13:08 | PN ---
MHU: Group Therapy Note - Service Type Service Type: [id number] Group Psychotherapy - Cognitive Behavioral Group Therapy ( CBT):Patient was attentive and participatory in CBT programming this morning, and remained in good behavioral control. Patient expressed positive insights regarding relevant treatment interventions and goals.
--- NOTE | 2018-02-20 16:34 | PN ---
MHU: Group Therapy Note - Service Type Service Type: [id number] Group Psychotherapy - Medication Education Group: Patient was attentive and participatory in group, and remained in good behavioral control. Patient expressed positive insights regarding relevant treatment interventions. Patient stated understanding of material discussed and had appropriate questions.
[2018-02-20] MEDS: CMC:Melatonin (NF) 3 MG TAB PO SCH (20:25)
[2018-02-20] MEDS: Sertraline* 50 MG TAB PO SCH (20:25)
[2018-02-20] MEDS: Mirtazapine TAB* 15 MG PO SCH (20:25)
[2018-02-20] MEDS: Nicotine Inhaler* 10 MG AMP INH PRN (20:26)
[2018-02-20] MEDS: Nicotine Patch Removal NOTE PATCH OFF SCH (20:31)
[2018-02-21] MEDS: Metoprolol Tartrate TAB* 25 MG PO SCH ×2 (08:18→20:38)
[2018-02-21] MEDS: Thiamine TAB* 100 MG TAB PO SCH (08:18)
[2018-02-21] MEDS: Vitamin THERAPEUTIC TAB PO SCH (08:18)
[2018-02-21] MEDS: Nicotine PATCH 7 MG/24 HR* PATCH TRANSDERM SCH (08:18)
--- NOTE | 2018-02-21 13:26 | PN ---
MHU: Group Therapy Note - Service Type Service Type: [id number] Group Psychotherapy - Cognitive Behavioral Group Therapy ( CBT):Patient was attentive and participatory in CBT programming this morning, and remained in good behavioral control. Patient expressed positive insights regarding relevant treatment interventions and goals.
[2018-02-21] MEDS ORDERED: Gabapentin CAP(*) 100 MG PO PRN (15:25)
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
[2018-02-21] MEDS: CMC:Melatonin (NF) 3 MG TAB PO SCH (20:38)
[2018-02-21] MEDS: Mirtazapine TAB* 15 MG PO SCH (20:38)
[2018-02-21] MEDS: Sertraline* 50 MG TAB PO SCH (20:38)
[2018-02-21] MEDS: Nicotine Patch Removal NOTE PATCH OFF SCH (20:39)
[2018-02-22] MEDS: Thiamine TAB* 100 MG TAB PO SCH (07:56)
[2018-02-22] MEDS: Vitamin THERAPEUTIC TAB PO SCH (07:56)
[2018-02-22] MEDS: Metoprolol Tartrate TAB* 25 MG PO SCH ×2 (07:56→20:36)
[2018-02-22] MEDS: Nicotine PATCH 7 MG/24 HR* PATCH TRANSDERM SCH (08:13)
[2018-02-22] MEDS: CMC:Melatonin (NF) 3 MG TAB PO SCH (20:36)
[2018-02-22] MEDS: Sertraline* 50 MG TAB PO SCH (20:36)
[2018-02-22] MEDS: Mirtazapine TAB* 15 MG PO SCH (20:36)
[2018-02-22] MEDS: Nicotine Patch Removal NOTE PATCH OFF SCH (20:38)
[2018-02-23] MEDS: Nicotine PATCH 7 MG/24 HR* PATCH TRANSDERM SCH (07:40)
[2018-02-23] MEDS: Vitamin THERAPEUTIC TAB PO SCH (08:39)
[2018-02-23] MEDS: Metoprolol Tartrate TAB* 25 MG PO SCH ×2 (08:39→20:19)
[2018-02-23] MEDS: Thiamine TAB* 100 MG TAB PO SCH (08:39)
[2018-02-23] MEDS: CMC:Melatonin (NF) 3 MG TAB PO SCH (20:18)
[2018-02-23] MEDS: Mirtazapine TAB* 15 MG PO SCH (20:19)
[2018-02-23] MEDS: Sertraline* 50 MG TAB PO SCH (20:19)
[2018-02-23] MEDS: Nicotine Patch Removal NOTE PATCH OFF SCH (21:09)
[2018-02-24] MEDS: Nicotine PATCH 7 MG/24 HR* PATCH TRANSDERM SCH (08:43)
[2018-02-24] MEDS: Thiamine TAB* 100 MG TAB PO SCH (08:45)
[2018-02-24] MEDS: Metoprolol Tartrate TAB* 25 MG PO SCH ×2 (08:45→20:08)
[2018-02-24] MEDS: Vitamin THERAPEUTIC TAB PO SCH (08:45)
--- NOTE | 2018-02-24 15:32 | PN ---
Subjective - Subjective Service Type: 47043 Hosp care 15 min low complexity Subjective: Patient is steadfastly coloring a mandala in milieu upon approach. Patient reports increase in depressed mood and inquires about increase in sertraline. He denies anxiety and is able to identify positive coping skills without use of prn medication. Objective - Appearance Appearance: Thin Framed Dysmorphic Features: Yes Hygiene: Normal Grooming: Well Kept - Behavior Psychomotor Activities: Normal Exhibits Abnormal Movement: No - Attitude and Relatedness Attitude and Relatedness: Cooperative Eye Contact: Good - Speech Quality: Unpressured Latencies: Normal Quantity: Appropriate - Mood Patient's Decription of Mood: "melancholy" - Affect Observed Affect: Depressed Affect Consistent with: Dysphoria - Thought Process Patient's Thought Process: Coherent, Goal Directed Thought Content: No Passive Wish, No Suicidal Planning, No Homicidal Ideation, No Paranoid Ideation - Sensorium Experiencing Hallucinations: No, Sensorium is Clear Type of Hallucinations: Visual: No, Auditory: No, Command: No - Level of Consciousness Level of Consciousness: Alert Orientation: Yes Intact, Yes Orientated to Time, Yes Orientated to Place, Yes Orientated to Person - Impulse Control Impulse Control: Tenuous - Insight and Judgement Insight and Judgement: Fair - Group Participation Particating in Group Activities: Yes - Medication Management Medication Management Adherence: Yes Assessment - Assessment Merits Inpatient Hospitalization: For Immediate Safety, For Stabilization, Consolidate Improvements Inpatient DSM-V Dx: F10.14 Clinical Impression: 67yo white male with significant alcohol use history. He presented to ED with c /o suicidal ideation and was admitted to telemetry floor for monitoring during alcohol detox. He is agreeable to referrals to substance use inpatient treatment. He merits hospitalization for safety and stabilization. Plan - Plan Treatment Plan: Name: ALBERTO POE Birthdate: 1950 [id number] continue acute intensive psychiatric treatment. increase sertraline. referrals to substance use treatment pending. Medications: Current Medications Acetaminophen (Tylenol Tab*) 650 mg PO Q4H PRN PRN Reason: for pain; or Temp >101 F Last Admin: 02/15/18 20:29 Dose: 650 mg Al Hydrox/Mg Hydrox/Simethicone (Maalox Plus*) 30 ml PO Q4H PRN PRN Reason: INDIGESTION Gabapentin (Neurontin Cap(*)) 100 mg PO TID PRN PRN Reason: ANXIETY Melatonin (Melatonin (Nf)) 3 mg PO BEDTIME [facility] Last Admin: 02/23/18 20:18 Dose: 3 mg Metoprolol Tartrate (Lopressor Tab*) 12.5 mg PO Q12HR [facility] Last Admin: 02/24/18 08:45 Dose: 12.5 mg Mirtazapine (Remeron Tab*) 15 mg PO BEDTIME [facility] Last Admin: 02/23/18 20:19 Dose: 15 mg Multivitamins (Theragran Tab*) 1 tab PO DAILY [facility] Last Admin: 02/24/18 08:45 Dose: 1 tab Nicotine (Nicotine Inhaler*) 10 mg INH Q2H PRN PRN Reason: CRAVING Last Admin: 02/20/18 20:26 Dose: 10 mg Nicotine (Nicotine Patch 7 Mg/24 Hr*) 1 patch TRANSDERM DAILY@0800 [facility] Last Admin: 02/24/18 08:43 Dose: Not Given Nicotine Polacrilex (Nicotine Gum*) 2 mg PO Q2H PRN PRN Reason: CRAVING Pharmacy Profile Note (Nicotine Patch Removal Note*) 1 note PATCH OFF 1999 [facility] Last Admin: 02/23/18 21:09 Dose: Not Given Sertraline HCl (Zoloft*) 100 mg PO BEDTIME [facility] Last Admin: 02/23/18 20:19 Dose: 50 mg Thiamine HCl (Vitamin B-1 Tab*) 100 mg PO DAILY [facility] Last Admin: 02/24/18 08:45 Dose: 100 mg - Discharge Plan Discharge Plan: Drug/Alcohol Rehab
[2018-02-24] MEDS: Sertraline* 100 MG TAB PO SCH (17:43)
[2018-02-24] MEDS: Mirtazapine TAB* 15 MG PO SCH (20:08)
[2018-02-24] MEDS: CMC:Melatonin (NF) 3 MG TAB PO SCH (20:08)
[2018-02-24] MEDS: Nicotine Patch Removal NOTE PATCH OFF SCH (20:10)
[2018-02-25] MEDS: Thiamine TAB* 100 MG TAB PO SCH (08:46)
[2018-02-25] MEDS: Vitamin THERAPEUTIC TAB PO SCH (08:46)
[2018-02-25] MEDS: Metoprolol Tartrate TAB* 25 MG PO SCH ×2 (08:47→20:48)
[2018-02-25] MEDS: Nicotine PATCH 7 MG/24 HR* PATCH TRANSDERM SCH (08:47)
--- NOTE | 2018-02-25 11:25 | PN ---
MHU: Group Therapy Note - Service Type Service Type: [id number] Group Psychotherapy - Cognitive Behavioral Group Therapy ( CBT):Patient was attentive and participatory in CBT programming this morning, and remained in good behavioral control. Patient expressed positive insights regarding relevant treatment interventions and goals.
[2018-02-25] MEDS: Mirtazapine TAB* 15 MG PO SCH (20:55)
[2018-02-25] MEDS: CMC:Melatonin (NF) 3 MG TAB PO SCH (20:55)
[2018-02-25] MEDS: Sertraline* 100 MG TAB PO SCH (20:55)
[2018-02-25] MEDS: Nicotine Patch Removal NOTE PATCH OFF SCH (20:57)
[2018-02-26] MEDS: Thiamine TAB* 100 MG TAB PO SCH (08:13)
[2018-02-26] MEDS: Metoprolol Tartrate TAB* 25 MG PO SCH ×2 (08:13→21:15)
[2018-02-26] MEDS: Vitamin THERAPEUTIC TAB PO SCH (08:13)
[2018-02-26] MEDS: Nicotine Inhaler* 10 MG AMP INH PRN (08:14)
[2018-02-26] MEDS: Nicotine PATCH 7 MG/24 HR* PATCH TRANSDERM SCH (08:41)
[2018-02-26] MEDS: Nicotine Patch Removal NOTE PATCH OFF SCH (19:34)
[2018-02-26] MEDS: CMC:Melatonin (NF) 3 MG TAB PO SCH (20:10)
[2018-02-26] MEDS: Sertraline* 100 MG TAB PO SCH (20:10)
[2018-02-26] MEDS: Mirtazapine TAB* 15 MG PO SCH (20:10)
[2018-02-27 08:10] VITALS: BP 118/72
[2018-02-27] MEDS: Nicotine PATCH 7 MG/24 HR* PATCH TRANSDERM SCH (08:35)
[2018-02-27] MEDS: Thiamine TAB* 100 MG TAB PO SCH (08:35)
[2018-02-27] MEDS: Metoprolol Tartrate TAB* 25 MG PO SCH (08:35)
[2018-02-27] MEDS: Vitamin THERAPEUTIC TAB PO SCH (08:35)
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
== END 2018-02-27 14:05 | DRG 897 ==
LOC: BSU 15:55 → OBSVTOIN 15:55 → UNDOADMOB 19:55 → BSU 19:55
PROVIDERS: ADMIT Psychiatry & Neurology Psychiatry; ATTEND Psychiatry & Neurology Psychiatry
PROC: GZHZZZZ Group Psychotherapy (ICD-10-PCS; principal; 2018-02-13)
PROC: HZ2ZZZZ Detoxification Services for Substance Abuse Treatment (ICD-10-PCS; 2018-02-13)
DX: F10.24 Alcohol dependence with alcohol-induced mood disorder (principal); R45.851 Suicidal ideations; F32.9 Major depressive disorder, single episode, unspecified; R45.84 Anhedonia; Y90.9 Presence of alcohol in blood, level not specified; F41.9 Anxiety disorder, unspecified; F17.200 Nicotine dependence, unspecified, uncomplicated; G62.1 Alcoholic polyneuropathy; G47.9 Sleep disorder, unspecified; Z88.6 Allergy status to analgesic agent; Z81.1 Family history of alcohol abuse and dependence
CPT/HCPCS: 36415; 80053; 80061; 80074; 83036; 85025; 90853; 99222; 99231; 99232; 99238; A9270-GY

== ENCOUNTER → 2018-10-24 09:51 | Day surgery (SDC) | payer MEDICARE, MEDICAID ==
[~2018-10-24 09:51] MED LIST: Albuterol/Ipratropium NEB.SOL* Albuterol 2.5 MG/Ipratropium 0.5 MG 3 ML ONE; Buffered Lidocaine 0.9% SYRIN* 5 ML/SYR SYRINGE INTRADERM ONE; Dexamethasone IV* 4 MG/ML 1 ML (4 MG) IV SLOW PU ONE; Dexamethasone IV* 4 MG/ML 1 ML (4 MG) ONE; DiMENhydriNATE IV* 50 MG/ML VIAL IV PUSH PRN; EPHEDrine (Pressors)* 50 MG/ML VIAL ONE; EPINEPHRINE 1 MG/ML 1 ML VIAL ONE; Famotidine IV* 10 MG/ML 2 ML (20 mg) IV ONE; Famotidine IV* 10 MG/ML 2 ML (20 mg) ONE; Flumazenil* 0.1 MG/ML 5 ML MDV ONE; KETAMINE HCL* 50 MG/ML 10 ML VIAL ONE; Lactated Ringers 1000 ML Bag* 1,000 ML IV SCH; Levalbuterol 0.63MG/3ML NEB* UNIT OF USE INH ONE; Levalbuterol 0.63MG/3ML NEB* UNIT OF USE INH PRN; Lidocaine 2% PF * 5 ML VIAL ONE; Methylene Blue 0.5 %* 50 MG/10 ML AMP IV ONE; Midazolam* 1 MG/ML 2 ML VIAL (2 MG) ONE; Morphine VIAL* 4 MG/ML VIAL (1 ml vial) IV PRN; Naloxone* 0.4 MG/ML 1 ML VIAL IV PRN; Naloxone* 0.4 MG/ML 10 ML VIAL ONE; Ondansetron ODT TAB* 4 MG ONE; Ondansetron TAB* 4 MG PO ONE; PROCHLORPERAZINE INJ 5 MG/ML 2 ML VIAL IV PRN; Propofol* 10 MG/ML 20 ML BTL ONE; fentaNYL* 50 MCG/ML 2 ML VIAL (100 MCG VIAL) IV PRN; fentaNYL* 50 MCG/ML 2 ML VIAL (100 MCG VIAL) ONE
--- NOTE | 2018-10-25 00:20 | OP ---
DATE OF OPERATION: 10/24/18 - SDS DATE OF : 54 SURGEON: Som John MD PRE-OP DIAGNOSIS: Left vocal cord mass. POST-OP DIAGNOSIS: Left vocal cord mass. OPERATIVE PROCEDURE: Microlaryngoscopy with excision of left true vocal cord mass, sent to pathology and then KTP laser ablation of its base under general endotracheal anesthesia with a laser with laser safe tube, laser safety was used with wet drapes and oxygen turned down during the procedure. COMPLICATIONS: None. DISPOSITION: Good. SPECIMEN: Left vocal cord mass. BLOOD LOSS: None. DESCRIPTION OF PROCEDURE: The patient was taken to the operating room and placed in the supine position on the operating table. General anesthesia was induced, he was orotracheally intubated with the laser safe tube and turned and draped for the surgery. He had no upper teeth, a gauze was placed there and the laryngoscope was inserted and suspended from the suspension system. Using a microscope, the mass was examined. He has a hard exophytic mass on the left anterior true vocal cord. I grasped this with an open-ended grasper and then used microlaryngoscopy scissors to excise it off of the underlying musculature and vocal ligament. 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 Cottonoid impregnated with oxymetazoline and 4% lidocaine was used to anesthetize his larynx. Laryngoscope was released, removed. The patient tolerated this procedure well, no complications, transferred to the recovery room in stable condition. [id number]/[facility] #: [id number] JANEL
[2018-10-30 14:05] VITALS: BP 122/78
== END | disposition home or self-care (01) ==
LOC: OR 09:51
PROVIDERS: ATTEND Otolaryngology
DX: J38.1 Polyp of vocal cord and larynx (principal); D38.0 Neoplasm of uncertain behavior of larynx; I25.2 Old myocardial infarction; F17.210 Nicotine dependence, cigarettes, uncomplicated; R49.0 Dysphonia
CPT/HCPCS: 88305; 88341; 88342; A9270-GY; J1100; J2250; J2310; J2704; J3010

== ENCOUNTER 2019-01-28 08:20 | Day surgery (SDC) | payer MEDICARE, MEDICAID ==
[~2019-01-28 08:20] MED LIST changes: +Acetaminophen TAB* 325 MG PO PRN; -Albuterol/Ipratropium NEB.SOL* Albuterol 2.5 MG/Ipratropium 0.5 MG 3 ML ONE; -Buffered Lidocaine 0.9% SYRIN* 5 ML/SYR SYRINGE INTRADERM ONE; +Buffered Lidocaine 1% SYRIN* 1 ML/SYRINGE INTRADERM ONE; -Dexamethasone IV* 4 MG/ML 1 ML (4 MG) IV SLOW PU ONE; -Dexamethasone IV* 4 MG/ML 1 ML (4 MG) ONE; -DiMENhydriNATE IV* 50 MG/ML VIAL IV PUSH PRN; -EPHEDrine (Pressors)* 50 MG/ML VIAL ONE; -EPINEPHRINE 1 MG/ML 1 ML VIAL ONE; -Famotidine IV* 10 MG/ML 2 ML (20 mg) IV ONE; -Famotidine IV* 10 MG/ML 2 ML (20 mg) ONE; -Flumazenil* 0.1 MG/ML 5 ML MDV ONE; -KETAMINE HCL* 50 MG/ML 10 ML VIAL ONE; -Lactated Ringers 1000 ML Bag* 1,000 ML IV SCH; -Levalbuterol 0.63MG/3ML NEB* UNIT OF USE INH ONE; -Levalbuterol 0.63MG/3ML NEB* UNIT OF USE INH PRN; -Lidocaine 2% PF * 5 ML VIAL ONE; -Methylene Blue 0.5 %* 50 MG/10 ML AMP IV ONE; -Midazolam* 1 MG/ML 2 ML VIAL (2 MG) ONE; -Morphine VIAL* 4 MG/ML VIAL (1 ml vial) IV PRN; -Naloxone* 0.4 MG/ML 1 ML VIAL IV PRN; -Naloxone* 0.4 MG/ML 10 ML VIAL ONE; -Ondansetron ODT TAB* 4 MG ONE; -Ondansetron TAB* 4 MG PO ONE; -PROCHLORPERAZINE INJ 5 MG/ML 2 ML VIAL IV PRN; -Propofol* 10 MG/ML 20 ML BTL ONE; -fentaNYL* 50 MCG/ML 2 ML VIAL (100 MCG VIAL) IV PRN; -fentaNYL* 50 MCG/ML 2 ML VIAL (100 MCG VIAL) ONE
[2019-01-28] MEDS ORDERED: Midazolam* 1 MG/ML 2 ML VIAL (2 MG) ONE (10:02)
[2019-01-28 10:46] VITALS: BP 138/90
--- NOTE | 2019-01-28 11:24 | OP ---
OPERATIVE NOTE: DATE OF OPERATION: 01/28/19 DATE OF : 54 SURGEON: Brayan Jeffery M.D. PREOPERATIVE DIAGNOSIS: Cataract, left eye. POSTOPERATIVE DIAGNOSIS: Cataract, left eye. OPERATIVE PROCEDURE: Extracapsular cataract extraction with intraocular lens implant left eye. PROCEDURE: The patient was brought to the operating room after being given 1/2% Alcaine with epineph rine drops in the preoperative area. The eye was prepped and draped in the usual sterile fashion. S terile drape and eyelid speculum were placed. Again, topical 1/2% Alcaine with epinephrine was given . A paracentesis incision was made at the 3 o'clock position with the No.75 blade. Clear cornea inc ision 2.2 x 2.2-mm was created at the 6 o'clock position starting at the anterior limbus using the 2. 2-mm keratome. The anterior chamber was irrigated with 0.4 mL of 1% non-preservative intracameral li docaine and filled with DisCoVisc. A capsulorrhexis was completed using the cystotome and the Utrata forceps. Hydrodissection was performed with balanced salt solution. The lens nucleus was removed wi th the Phacoemulsification handpiece without incident. Cortex was removed with the irrigation-aspira tion handpiece. The capsular bag was re-inflated using DisCoVisc and an [id number] 21 implant was insert ed with the shooter. The irrigation-aspiration handpiece was used to remove all residual DisCoVisc. The eye was refilled with balanced salt solution and the wound checked and found to be watertight. Topical Maxitrol drops were given. [id number]/[facility] #: [id number]
[2019-01-28] MEDS ORDERED: Neomycin/Polymy/Dex OPTH.SUSP* MAXITROL 0.1% 5 ML ONE (12:11)
[2019-01-28] MEDS ORDERED: Lidocaine 2% EPI 1:200000 MPF*10-20 ML VIAL ONE (12:11)
[2019-01-28] MEDS ORDERED: Proparacaine 0.5% OPHTH.SOL* 15 ML BTL ONE (12:11)
[2019-01-28] MEDS ORDERED: Lidocaine 1%* 5 ML VIAL ONE (12:11)
[2019-01-28] MEDS ORDERED: Ketorolac 0.5% OPHTH (NF) 0.5 % 5 ML BTL ONE (12:11)
[2019-01-28] MEDS ORDERED: acetaZOLAMIDE TAB* 250 MG ONE (12:11)
[2019-01-28] MEDS ORDERED: Povidone Iodine 5% OPTH* 30 ML BTL ONE (12:11)
[2019-01-28] MEDS ORDERED: Cyclopentolate 1% OPTH.SOL* 2 ML BTL ONE (12:11)
[2019-01-28] MEDS ORDERED: Phenylephrine 2.5% OPTH.SOL* 2 ML BTL ONE (12:11)
== END 2019-01-28 10:57 | disposition home or self-care (01) ==
LOC: OREAST 08:20
PROVIDERS: ATTEND Specialist
DX: H25.812 Combined forms of age-related cataract, left eye (principal); H43.813 Vitreous degeneration, bilateral; H52.222 Regular astigmatism, left eye; Z72.0 Tobacco use; J44.9 Chronic obstructive pulmonary disease, unspecified; I10 Essential (primary) hypertension
CPT/HCPCS: A9270-GY; J2250; V2632

== ENCOUNTER 2019-02-04 09:21 | Day surgery (SDC) | payer MEDICARE, MEDICAID ==
[2019-02-04] MEDS ORDERED: Lidocaine 2% EPI 1:200000 MPF*10-20 ML VIAL ONE (09:33)
[2019-02-04] MEDS ORDERED: acetaZOLAMIDE TAB* 250 MG ONE (09:33)
[2019-02-04] MEDS ORDERED: Neomycin/Polymy/Dex OPTH.SUSP* MAXITROL 0.1% 5 ML ONE (09:33)
[2019-02-04] MEDS ORDERED: Povidone Iodine 5% OPTH* 30 ML BTL ONE (09:33)
[2019-02-04] MEDS ORDERED: Ketorolac 0.5% OPHTH (NF) 0.5 % 5 ML BTL ONE (09:33)
[2019-02-04] MEDS ORDERED: Cyclopentolate 1% OPTH.SOL* 2 ML BTL ONE (09:33)
[2019-02-04] MEDS ORDERED: Phenylephrine OPHTH SOL 2.5%* 2 ML ONE (09:33)
[2019-02-04] MEDS ORDERED: Lidocaine 1%* 5 ML VIAL ONE (09:33)
[2019-02-04] MEDS ORDERED: Proparacaine 0.5% OPHTH.SOL* 15 ML BTL ONE (09:34)
[2019-02-04] MEDS ORDERED: Midazolam* 1 MG/ML 5 ML VIAL (5 MG) ONE (11:21)
[2019-02-04 11:57] VITALS: BP 143/83
--- NOTE | 2019-02-04 12:48 | OP ---
DATE OF OPERATION: 02/04/19 - [facility] DATE OF : 54 SURGEON: Brayan Jeffery M.D. PREOPERATIVE DIAGNOSIS: Cataract, right eye. POSTOPERATIVE DIAGNOSIS: Cataract, right eye. OPERATIVE PROCEDURE: Extracapsular cataract extraction with IOL right, intraocular lens implant right eye. DESCRIPTION OF PROCEDURE: The patient was brought to the operating room after being given 1/2% Alcaine with epinephrine drops in the preoperative area. The eye was prepped and draped in the usual sterile fashion. Sterile drape and eyelid speculum were placed. Again, topical 1/2% Alcaine with epinephrine was given. A paracentesis incision was made at the 9 o'clock position with the No.75 blade. Clear cornea incision 2.2 x 2.2-mm was created at the 12 o'clock position starting at the anterior limbus using the 2.2-mm keratome. The anterior chamber was irrigated with 0.4 mL of 1% non-preservative intracameral lidocaine and filled with DisCoVisc. A capsulorrhexis was completed using the cystotome and the Utrata forceps. Hydrodissection was performed with balanced salt solution. The lens nucleus was removed with the Phacoemulsification handpiece without incident. Cortex was removed with the irrigation-aspiration handpiece. The capsular bag was re-inflated using DisCoVisc and an SN60WF 18.5 implant was inserted with the shooter. The irrigation-aspiration handpiece was used to remove all residual DisCoVisc. The eye was refilled with balanced salt solution and the wound checked and found to be watertight. Topical Maxitrol drops were given. [id number]/[facility] #: [id number] [facility]
== END 2019-02-04 12:29 | disposition home or self-care (01) ==
LOC: OREAST 09:21
PROVIDERS: ATTEND Specialist
DX: H25.811 Combined forms of age-related cataract, right eye (principal); H43.813 Vitreous degeneration, bilateral; Z72.0 Tobacco use; I10 Essential (primary) hypertension
CPT/HCPCS: A9270-GY; J2250; V2632

== ENCOUNTER 2019-03-31 07:45 | Observation (INO) | payer MEDICARE, MEDICAID ==
[~2019-03-31 07:45] MED LIST changes: -Acetaminophen TAB* 325 MG PO PRN; +Dexamethasone IV* 4 MG/ML 1 ML (4 MG) IV SLOW PU ONE; +DiMENhydriNATE IV* 50 MG/ML VIAL IV PUSH PRN; +Famotidine IV* 10 MG/ML 2 ML (20 mg) IV ONE; +HYDROcodone/ACETAMIN 5-325 MG* 1 TAB PO PRN; +Lactated Ringers 1000 ML Bag* 1,000 ML IV SCH; +Naloxone* 0.4 MG/ML 1 ML VIAL IV PRN; +fentaNYL* 50 MCG/ML 2 ML VIAL (100 MCG VIAL) IV PRN; +oxyCODONE/Acetamin 5/325 MG* TAB PO PRN
[2019-03-31] MEDS ORDERED: Dexamethasone IV* 4 MG/ML 1 ML (4 MG) ONE (08:02)
[2019-03-31] MEDS ORDERED: Famotidine IV* 10 MG/ML 2 ML (20 mg) ONE (08:03)
[2019-03-31] MEDS ORDERED: ceFAZolin 2 GM PREMIX in ORs 2 GM/50 ML BAG IVPB ONE (08:46)
[2019-03-31] MEDS ORDERED: Lidocain 1% EPI 1:100,000 * 30 ML MDV ONE (09:20)
[2019-03-31] MEDS ORDERED: Thrombin 5,000 UNITS(BOVINE)* for Ultrasound Guided Pseudoaneursym ONE (09:21)
[2019-03-31] MEDS ORDERED: Bacitracin INJECTION* 50,000 UNITS ONE (09:21)
[2019-03-31] MEDS ORDERED: fentaNYL* 50 MCG/ML 2 ML VIAL (100 MCG VIAL) ONE (09:30)
[2019-03-31] MEDS ORDERED: Lidocaine 2% PF * 5 ML VIAL ONE (09:30)
[2019-03-31] MEDS ORDERED: Rocuronium* 10 MG/ML VIAL ONE (09:30)
[2019-03-31] MEDS ORDERED: Propofol* 10 MG/ML 20 ML BTL ONE (09:30)
[2019-03-31] MEDS ORDERED: EPHEDrine (Pressors)* 50 MG/ML VIAL ONE (10:22)
[2019-03-31] MEDS ORDERED: Ondansetron INJ* 2 MG/ML VIAL ONE (10:44)
[2019-03-31] MEDS ORDERED: Sugammadex * 500 MG/5 ML VIAL IV PUSH ONE (10:46)
[2019-03-31] MEDS ORDERED: Acetaminophen TAB* 325 MG PO PRN (11:01)
[2019-03-31] MEDS ORDERED: Magnesium Hydroxide LIQ* 30 ML UDC PO PRN (11:01)
[2019-03-31] MEDS ORDERED: Ondansetron INJ* 2 MG/ML VIAL IV PRN (11:01)
[2019-03-31] MEDS: HYDROcodone/ACETAMIN 5-325 MG* 1 TAB PO PRN ×2 (13:40→21:01)
[2019-03-31] MEDS: Lactated Ringers 1000 ML Bag* 1,000 ML IV SCH (13:44)
[2019-03-31] MEDS ORDERED: Melatonin 3 MG TAB PO SCH (21:00)
[2019-03-31] MEDS ORDERED: Mirtazapine TAB* 15 MG PO SCH (21:00)
[2019-03-31] MEDS ORDERED: Sertraline* 25 MG TAB PO SCH (21:00)
[2019-03-31] MEDS ORDERED: PTO:Umeclidin/Vilant 62.5 MDI 62.5/25 mcg 14 INH ELLIPTA DEVICE INH SCH (21:00)
[2019-03-31] MEDS ORDERED: Sertraline* 100 MG TAB PO SCH (21:00)
[2019-03-31] MEDS: Gabapentin CAP(*) 100 MG PO SCH (21:01)
[2019-03-31] MEDS: Metoprolol Tartrate TAB* 25 MG PO SCH (21:02)
[2019-04-01] MEDS: Lactated Ringers 1000 ML Bag* 1,000 ML IV SCH (03:04)
[2019-04-01 07:20] VITALS: BP 126/72
[2019-04-01] MEDS: Gabapentin CAP(*) 100 MG PO SCH (07:25)
[2019-04-01] MEDS: HYDROcodone/ACETAMIN 5-325 MG* 1 TAB PO PRN ×2 (07:25→11:45)
[2019-04-01] MEDS: Metoprolol Tartrate TAB* 25 MG PO SCH (07:26)
--- NOTE | 2019-04-01 07:32 | PN ---
Progress Note - Progress Note Date of Service: 04/01/19 SOAP: Subjective: []POD # 1 Has not been up C/O some incisional pain Objective: []Decreasing LYNDON drainage Motor intact Assessment: []Satis post op course Plan: []D/C Drain D/C patient D/C Instructions given
[2019-04-01] MEDS ORDERED: Thiamine TAB* 100 MG TAB PO SCH (09:00)
--- NOTE | 2019-04-08 09:59 | OP ---
DATE OF OPERATION: 03/31/19 - ROOM #[id number] DATE OF : 54 PRIMARY SURGEON: David Farfan MD. SURVEILLANCE DUAL RATE OFFICER: VASYL Loomis. ANESTHESIA: General. PRE-OPERATIVE DIAGNOSIS: Lumbar spinal stenosis, L3-4, L4-5. POST-OPERATIVE DIAGNOSIS: Lumbar spinal stenosis, L3-4, L4-5. OPERATIVE PROCEDURE: Decompressive lumbar laminectomy, L3-4, L4-5 with foraminotomies bilaterally. DESCRIPTION OF PROCEDURE: After satisfactory general anesthesia was obtained, the patient was placed on the operating table in the prone position with the chest supported on the Loyd frame and the back slightly flexed. The lumbar region was then clipped, prepped, and draped in a sterile manner for lumbar laminectomy and a skin incision outlined from L3 to L5. This incision was infiltrated with 1% Xylocaine with epinephrine, after which it was turned down sharply to the level of the lumbar fascia. The fascia was divided along the spinous processes from L3 to L5 and paraspinal musculature stripped away from these posterior elements bilaterally using the periosteal elevator and monopolar cautery. An intraoperative x-ray was obtained verifying proper interspace localization, after which the initial decompression was carried out at the L3-4 level. This involved removing the spinous processes of L3, L4, and the superior aspect of spinous process of L5 with the combination of the Allison rib shear and Leksell rongeurs. The Midas Manuel drill was then used to thin out the remaining portion of the base of the spinous process of L3 and the inferior aspect of the lamina of L3. Kerrison rongeurs were then used to perform a decompression. This was carried superiorly until the attachment of the ligamentum flavum was taken down. Lateral and inferior decompression was then carried out until both L4 nerve roots were free in their course. Generalized foraminotomies were carried out on both sides. Attention was then directed to the L4-5 level where similar decompression was carried out. The pathology at this level was a combination of thickened ligament as well as bony hypertrophy. The base of the spinous process of L4 was thinned out and a decompression carried out. The thickened ligament flavum was removed and generous foraminotomies were performed over both L5 nerve roots. At the conclusion of the decompression, a nerve hook would go out readily with both L4 and L5 nerve roots. After assuring adequate hemostasis, the wound was thoroughly irrigated, after which a piece of Gelfoam was placed on the laminectomy defect. The fascia was reapproximated with a 0 Vicryl suture. The subcutaneous tissue was closed with 3-0 Vicryl suture and the skin closed with skin clips. The estimated blood loss was 100 cc and the final sponge, padding, and needle counts were correct. The patient was taken to the recovery room extubated and in stable condition. [id number]/[facility] #: [id number] JANEL
--- NOTE | 2019-04-21 22:42 | DS ---
DISCHARGE SUMMARY: DATE OF ADMISSION: 03/31/19 DATE OF DISCHARGE: 04/01/19 ATTENDING PHYSICIAN: Dr. Farfan.* (DICTATED BY VASYL TROTTER) DISCHARGE DIAGNOSES: 1. Lumbar stenosis 2. Hypertension. SPECIAL PROCEDURE: Decompressive lumbar laminectomy L3-4 and L4-5. HOSPITAL COURSE: This 68-year-old male who was seen in the office with a symptomatic lumbar stenosis that is evidenced on MRI of the lumbar spine. He had not improved with conservative treatment and noted a decrease in his activity tolerance secondary to pain. He opted for elective surgical intervention. On the day of admission, he was taken to surgery where under general anesthesia, a decompressive lumbar laminectomy at L3-4 and L4-5 operation was carried out. Postoperatively, he was feeling well. He was ambulating independently and he was eating, drinking, and voiding without difficulty. On the first postoperative day, the wound drain was discontinued and the patient was discharged home to the care of the [facility] cream [facility] assistant living facility. DISCHARGE INSTRUCTIONS: Wound care and activity level were discussed with the patient and information on these were provided. DISCHARGE MEDICATIONS: Franklin 5 325 mg 1 to 2 tabs by mouth every 4 hours as needed for pain. FOLLOWUP: He will be seen in office in approximately 2 weeks. The patient's condition at the time of discharge was stable. VASYL TROTTER [id number]/[facility] #: [id number] MTDD
== END 2019-04-01 12:13 | disposition home or self-care (01) ==
LOC: OR 07:45 → SSU 13:20
PROVIDERS: ADMIT Neurological Surgery; ATTEND Neurological Surgery
DX: M48.062 Spinal stenosis, lumbar region with neurogenic claudication (principal); M54.9 Dorsalgia, unspecified; I10 Essential (primary) hypertension; F41.9 Anxiety disorder, unspecified; F32.9 Major depressive disorder, single episode, unspecified; F17.210 Nicotine dependence, cigarettes, uncomplicated
CPT/HCPCS: 72100; 96365; 96366; A9270-GY; G0378; J0690; J1100; J2405; J2704; J3010

== ENCOUNTER 2021-05-01 15:38 | Inpatient (IN) ==
[2021-05-01 16:22] LABS: ABS Eosinophils 0.1 10^3/ul (0-0.6); ABS Lymphocytes 1.3 10^3/ul (1.0-4.8); ABS Monocytes 0.8 10^3/ul (0-0.8); ABS Neutrophils 4.8 10^3/ul (1.5-7.7); Eosinophil % 1.2 %; Hematocrit 34 % (42-52); Hemoglobin 11.2 g/dL (14.0-18.0); Lymphocyte % 18.6 %; Mean Corpuscular HGB Conc 34 g/dL (31-36); Mean Corpuscular Hemoglobin 33 pg (27-31); Mean Corpuscular Volume 97 fL (80-94); Platelet Count 186 10^3/uL (150-450); Red Blood Count 3.44 10^6 /uL (4.18-5.48); Red Cell Distribution Width 17 % (10-15); White Blood Count 7.1 10^3/uL (3.5-10.8)
[2021-05-01 16:40] LABS: Albumin/Globulin Ratio 1.1 (1-3); Calcium 8.7 mg/dL (8.6-10.3); EGFR African American 150.5 (>60); EGFR Non-African American 124.4 (>60); Globulin 3.5 g/dL (2-4); Potassium 3.6 mmol/L (3.5-5.0); Total Bilirubin 0.5 mg/dL (0.2-1.0); Total Protein 7.5 g/dL (6.4-8.9)
[2021-05-01] MEDS ORDERED: Thiamine 100 MG/ML 2 ml VIAL (200 mg) IV ONE (17:58)
[2021-05-01] MEDS ORDERED: Senna TAB 8.6 mg TAB PO PRN (18:00)
[2021-05-01] MEDS ORDERED: Polyethylene Glycol 3350 17 GM PACKET PO PRN (18:00)
[2021-05-01] MEDS ORDERED: Magnesium Hydroxide LIQ 30 ML UDC PO PRN (18:00)
[2021-05-01] MEDS: Multivitamins/Minerals TAB PO SCH (18:23)
[2021-05-01] MEDS: Morphine 2 MG/ML SYRINGE IV PRN ×2 (18:45→23:32)
[2021-05-01 19:25] LABS: Urine Appearance Cloudy; Urine Bilirubin Negative (Negative); Urine Blood Negative (Negative); Urine Color Amber; Urine Glucose Negative (Negative); Urine Ketones Trace (Negative); Urine Nitrite Negative (Negative); Urine Protein 1+(30 mg/dL) (Negative); Urine Specific Gravity 1.015 (1.002-1.030); Urine Urobilinogen Negative (Negative)
[2021-05-01 19:29] LABS: Urine Bacteria Absent (Absent); Urine Red Blood Cell Trace(0-2/hpf) (Absent); Urine Squamous Epithelial Cell Present (Absent); Urine White Blood Cell Trace(0-5/hpf) (Absent)
[2021-05-02] MEDS: Morphine 2 MG/ML SYRINGE IV PRN ×2 (03:42→10:39)
[2021-05-02 05:11] LABS: ABS Lymphocytes 0.9 10^3/ul (1.0-4.8); ABS Monocytes 0.9 10^3/ul (0-0.8); Hematocrit 29 % (42-52); Hemoglobin 9.9 g/dL (14.0-18.0); Lymphocyte % 10.6 %; Mean Corpuscular HGB Conc 35 g/dL (31-36); Mean Corpuscular Hemoglobin 34 pg (27-31); Mean Corpuscular Volume 97 fL (80-94); Mean Platelet Volume 9.5 fL (7.4-10.4); Platelet Count 159 10^3/uL (150-450); Red Blood Count 2.93 10^6 /uL (4.18-5.48); Red Cell Distribution Width 17 % (10-15); White Blood Count 8.8 10^3/uL (3.5-10.8)
[2021-05-02 05:21] LABS: INR 1.02 (0.82-1.09)
[2021-05-02 05:30] LABS: Anion Gap 16 mmol/L (2-11); Blood Urea Nitrogen 15 mg/dL (6-24); CO2 Carbon Dioxide 26 mmol/L (22-32); Calcium 8.6 mg/dL (8.6-10.3); Chloride 96 mmol/L (101-111); EGFR African American 159.1 (>60); EGFR Non-African American 131.5 (>60); Glucose 112 mg/dL (70-100); Potassium 4.1 mmol/L (3.5-5.0); Sodium 138 mmol/L (135-145)
[2021-05-02 05:31] LABS: Alcohol, S < 10 mg/dL (<10)
[2021-05-02] MEDS: Multivitamins/Minerals TAB PO SCH (07:43)
[2021-05-02] MEDS: NS 0.9% 1000 ml BAG 1,000 ML IV SCH ×2 (09:00→20:53)
[2021-05-02] MEDS ORDERED: Albuterol 2.5mg/3 ml (0.083%) NEB.SOLN INH PRN (10:30)
[2021-05-02] MEDS ORDERED: Albuterol HFA INHALER 8 gm MDI INH PRN (10:30)
[2021-05-02] MEDS ORDERED: Rocuronium 50 mg VIAL 10 mg/ml 5 ml VIAL (50 mg) ONE (11:44)
[2021-05-02] MEDS ORDERED: Dexamethasone IV 4 MG/ML VIAL 1 ml VIAL ONE (11:44)
[2021-05-02] MEDS ORDERED: Midazolam 5 mg/5 ml VIAL 1 mg/ml 5 ml VIAL (5 mg) ONE (11:44)
[2021-05-02] MEDS ORDERED: fentaNYL 100 mcg/2 ml 50 MCG/ML VIAL ONE ×2 (11:44→16:22)
[2021-05-02] MEDS ORDERED: Propofol 10 MG/ML 20 ML BTL ONE (11:46)
[2021-05-02] MEDS ORDERED: Lidocaine 2% PF 5 ML VIAL ONE (11:46)
[2021-05-02] MEDS ORDERED: ceFAZolin 2 GM PREMIX 2 GM/50 ML BAG ONE (13:01)
[2021-05-02] MEDS ORDERED: Phenylephrine 40 mcg/mL 10mL (400mcg) SYRINGE ONE (16:26)
[2021-05-02] MEDS ORDERED: fentaNYL 100 mcg/2 ml 50 MCG/ML VIAL IV PRN (16:30)
[2021-05-02] MEDS ORDERED: Naloxone 0.4 mg VIAL 0.4 mg/ml 1 ml VIAL IV PRN (16:30)
[2021-05-02] MEDS ORDERED: diPHENhydraMINE IV 50 MG/ML 1 ml VIAL (BENADRYL) IV PRN (16:30)
[2021-05-02] MEDS ORDERED: DiMENhydriNATE IV 50 mg/ml 1 ml VIAL IV PUSH PRN (16:30)
[2021-05-02] MEDS ORDERED: HYDROmorphone 1 MG/1 ML SYRINGE ONE (17:12)
[2021-05-02 20:13] LABS: Hematocrit 26 % (42-52); Hemoglobin 8.8 g/dL (14.0-18.0)
[2021-05-03] MEDS: ceFAZolin 1 GM X 3 DOSES POST-OP Q8H (AddVan) IVPB SCH ×3 (00:25→16:20)
[2021-05-03 06:23] LABS: ABS Neutrophils 6.5 10^3/ul (1.5-7.7); Eosinophil % 0.1 %; Hematocrit 21 % (42-52); Hemoglobin 7.2 g/dL (14.0-18.0); Lymphocyte % 12.1 %; Mean Corpuscular HGB Conc 35 g/dL (31-36); Mean Corpuscular Hemoglobin 34 pg (27-31); Mean Corpuscular Volume 98 fL (80-94); Mean Platelet Volume 9.4 fL (7.4-10.4); Platelet Count 152 10^3/uL (150-450); Red Blood Count 2.11 10^6 /uL (4.18-5.48); Red Cell Distribution Width 18 % (10-15); White Blood Count 8.6 10^3/uL (3.5-10.8)
[2021-05-03 06:37] LABS: Anion Gap 8 mmol/L (2-11); Blood Urea Nitrogen 15 mg/dL (6-24); CO2 Carbon Dioxide 29 mmol/L (22-32); Calcium 7.5 mg/dL (8.6-10.3); Chloride 96 mmol/L (101-111); EGFR African American 179.2 (>60); EGFR Non-African American 148.1 (>60); Glucose 104 mg/dL (70-100); Potassium 3.7 mmol/L (3.5-5.0); Sodium 133 mmol/L (135-145)
[2021-05-03] MEDS: Multivitamins/Minerals TAB PO SCH (09:18)
[2021-05-03] MEDS: NS 0.9% 1000 ml BAG 1,000 ML IV SCH (11:14)
[2021-05-03] MEDS: FLUTICAS/UMECLI/VILANT 100-62.5-25 MDI (NF) INH SCH (11:54)
[2021-05-03] MEDS ORDERED: Enoxaparin 40 MG/0.4 ML SYR SUBCUT SCH ×2 (12:00)
[2021-05-03 12:29] LABS: Hematocrit 21 % (42-52)
[2021-05-03 13:25] LABS: Total Iron Binding Capacity 253 mcg/dL (250-450); Transferrin 181 mg/dL (203-362)
[2021-05-03 13:28] LABS: % Iron Saturation 8 % (15-55); Iron < 20 ug/dL (50-212); Unsaturated Iron Binding < 238 ug/dL
[2021-05-03 13:47] LABS: Ferritin 143.5 ng/mL (24-336)
[2021-05-03 13:52] LABS: Vitamin B12 217 pg/mL (180-914)
[2021-05-03 19:19] LABS: Hematocrit 19 % (42-52); Hemoglobin 6.8 g/dL (14.0-18.0)
[2021-05-04] MEDS: NS 0.9% 1000 ml BAG 1,000 ML IV SCH (02:55)
[2021-05-04 06:44] LABS: Hematocrit 20 % (42-52); Hemoglobin 6.8 g/dL (14.0-18.0); Mean Corpuscular HGB Conc 34 g/dL (31-36); Mean Corpuscular Hemoglobin 34 pg (27-31); Mean Corpuscular Volume 99 fL (80-94); Platelet Count 192 10^3/uL (150-450); Red Blood Count 2.04 10^6 /uL (4.18-5.48); Red Cell Distribution Width 18 % (10-15); White Blood Count 7.6 10^3/uL (3.5-10.8)
[2021-05-04 07:00] LABS: Calcium 7.7 mg/dL (8.6-10.3); EGFR African American 168.6 (>60); EGFR Non-African American 139.3 (>60); Potassium 3.2 mmol/L (3.5-5.0)
[2021-05-04] MEDS ORDERED: Potassium Chlor 20 meq TAB.ER PO ONE (07:29)
[2021-05-04 08:01] LABS: Magnesium 1.9 mg/dL (1.9-2.7)
[2021-05-04] MEDS: Multivitamins/Minerals TAB PO SCH (09:14)
[2021-05-04] MEDS: FLUTICAS/UMECLI/VILANT 100-62.5-25 MDI (NF) INH SCH (09:20)
[2021-05-04 13:41] LABS: Hematocrit 24 % (42-52); Mean Corpuscular HGB Conc 34 g/dL (31-36); Mean Corpuscular Hemoglobin 33 pg (27-31); Mean Corpuscular Volume 97 fL (80-94); Mean Platelet Volume 8.7 fL (7.4-10.4); Platelet Count 204 10^3/uL (150-450); Red Blood Count 2.44 10^6 /uL (4.18-5.48); Red Cell Distribution Width 18 % (10-15); White Blood Count 8.2 10^3/uL (3.5-10.8)
[2021-05-04 21:27] LABS: Hematocrit 22 % (42-52); Hemoglobin 7.8 g/dL (14.0-18.0)
[2021-05-05 05:52] LABS: ABS Eosinophils 0.1 10^3/ul (0-0.6); ABS Lymphocytes 1.3 10^3/ul (1.0-4.8); ABS Monocytes 1.2 10^3/ul (0-0.8); ABS Neutrophils 4.4 10^3/ul (1.5-7.7); Eosinophil % 1.8 %; Hematocrit 24 % (42-52); Lymphocyte % 18.1 %; Mean Corpuscular HGB Conc 34 g/dL (31-36); Mean Corpuscular Hemoglobin 33 pg (27-31); Mean Corpuscular Volume 97 fL (80-94); Mean Platelet Volume 8.5 fL (7.4-10.4); Platelet Count 242 10^3/uL (150-450); Red Blood Count 2.45 10^6 /uL (4.18-5.48); Red Cell Distribution Width 18 % (10-15)
[2021-05-05 06:06] LABS: Calcium 8.2 mg/dL (8.6-10.3); EGFR African American 168.6 (>60); EGFR Non-African American 139.3 (>60); Potassium 3.9 mmol/L (3.5-5.0)
[2021-05-05] MEDS: FLUTICAS/UMECLI/VILANT 100-62.5-25 MDI (NF) INH SCH (09:49)
[2021-05-05] MEDS: Multivitamins/Minerals TAB PO SCH (09:49)
[2021-05-05] MEDS: Amoxicillin/Clavul 500/125 TAB (Augmentin 500 mg tab) PO SCH ×2 (12:49→22:23)
[2021-05-06 06:29] LABS: Hematocrit 24 % (42-52); Hemoglobin 8.2 g/dL (14.0-18.0); Mean Corpuscular HGB Conc 34 g/dL (31-36); Mean Corpuscular Hemoglobin 33 pg (27-31); Mean Corpuscular Volume 97 fL (80-94); Mean Platelet Volume 8.2 fL (7.4-10.4); Platelet Count 304 10^3/uL (150-450); Red Cell Distribution Width 18 % (10-15)
[2021-05-06 06:42] LABS: Calcium 8.7 mg/dL (8.6-10.3); EGFR African American 162.1 (>60); Potassium 3.6 mmol/L (3.5-5.0)
[2021-05-06] MEDS: FLUTICAS/UMECLI/VILANT 100-62.5-25 MDI (NF) INH SCH (07:49)
[2021-05-06] MEDS: Multivitamins/Minerals TAB PO SCH (09:27)
[2021-05-06] MEDS: Amoxicillin/Clavul 500/125 TAB (Augmentin 500 mg tab) PO SCH ×2 (09:27→21:32)
[2021-05-06] MEDS: Enoxaparin 40 MG/0.4 ML SYR SUBCUT SCH (12:05)
[2021-05-07] MEDS: FLUTICAS/UMECLI/VILANT 100-62.5-25 MDI (NF) INH SCH (07:32)
[2021-05-07 08:43] LABS: Hematocrit 27 % (42-52); Hemoglobin 8.9 g/dL (14.0-18.0)
[2021-05-07] MEDS: Amoxicillin/Clavul 500/125 TAB (Augmentin 500 mg tab) PO SCH ×2 (09:42→22:08)
[2021-05-07] MEDS: Multivitamins/Minerals TAB PO SCH (09:42)
[2021-05-07] MEDS: Enoxaparin 40 MG/0.4 ML SYR SUBCUT SCH (12:02)
[2021-05-08 07:29] LABS: Hematocrit 23 % (42-52); Mean Corpuscular HGB Conc 34 g/dL (31-36); Mean Corpuscular Hemoglobin 33 pg (27-31); Mean Corpuscular Volume 95 fL (80-94); Red Blood Count 2.43 10^6 /uL (4.18-5.48); Red Cell Distribution Width 18 % (10-15)
[2021-05-08 07:48] LABS: ABS Eosinophils 0.1 10^3/ul (0-0.6); ABS Lymphocytes 1.4 10^3/ul (1.0-4.8); ABS Monocytes 2.1 10^3/ul (0-0.8); ABS Neutrophils 4.4 10^3/ul (1.5-7.7); Eosinophil % 1.8 %; Lymphocyte % 17.6 %; Mean Platelet Volume 8.8 fL (7.4-10.4); Nucleated Red Blood Cells % 0.1; Platelet Count 464 10^3/uL (150-450)
[2021-05-08] MEDS ORDERED: Potassium Chlor 20 meq TAB.ER PO ONE (08:14)
[2021-05-08] MEDS: FLUTICAS/UMECLI/VILANT 100-62.5-25 MDI (NF) INH SCH (08:17)
[2021-05-08] MEDS: Amoxicillin/Clavul 500/125 TAB (Augmentin 500 mg tab) PO SCH ×2 (08:30→20:51)
[2021-05-08] MEDS: Multivitamins/Minerals TAB PO SCH (08:30)
[2021-05-08] MEDS: Enoxaparin 40 MG/0.4 ML SYR SUBCUT SCH (12:40)
[2021-05-09] MEDS: FLUTICAS/UMECLI/VILANT 100-62.5-25 MDI (NF) INH SCH (07:27)
[2021-05-09] MEDS: Multivitamins/Minerals TAB PO SCH (08:14)
[2021-05-09] MEDS: Amoxicillin/Clavul 500/125 TAB (Augmentin 500 mg tab) PO SCH ×2 (08:14→21:24)
[2021-05-09 08:56] LABS: INR 1.06 (0.82-1.09)
[2021-05-09] MEDS ORDERED: fentaNYL 100 mcg/2 ml 50 MCG/ML VIAL ONE (12:10)
[2021-05-09] MEDS: Enoxaparin 40 MG/0.4 ML SYR SUBCUT SCH (14:05)
[2021-05-10] MEDS: Amoxicillin/Clavul 500/125 TAB (Augmentin 500 mg tab) PO SCH (08:57)
[2021-05-10] MEDS: Multivitamins/Minerals TAB PO SCH (08:57)
[2021-05-10] MEDS: FLUTICAS/UMECLI/VILANT 100-62.5-25 MDI (NF) INH SCH (08:58)
[2021-05-10] MEDS ORDERED: Enoxaparin 40 MG/0.4 ML SYR SUBCUT SCH (09:00)
[2021-05-10] MEDS ORDERED: Ondansetron 4 mg VIAL 2 MG/ML 2 ml VIAL IV PRN (12:00)
[2021-05-10] MEDS ORDERED: NS 0.9% 500 ml BAG 500 ML IV SCH (13:00)
[2021-05-10] MEDS: Enoxaparin 40 MG/0.4 ML SYR SUBCUT SCH (14:34)
[2021-05-10 15:34] VITALS: BP 112/69
== END 2021-05-10 16:30 ==
LOC: ED 15:38 → SSU 20:00
PROVIDERS: ADMIT Hospitalist; ATTEND Internal Medicine

== ENCOUNTER 2021-05-10 13:21 | Inpatient (IN) ==
[2021-05-10] MEDS ORDERED: Senna TAB 8.6 mg TAB PO PRN (17:07)
[2021-05-10] MEDS ORDERED: Magnesium Hydroxide LIQ 30 ML UDC PO PRN (17:07)
[2021-05-10] MEDS ORDERED: Albuterol HFA INHALER 8 gm MDI INH PRN (19:40)
[2021-05-10] MEDS: Amoxicillin/Clavul 500/125 TAB (Augmentin 500 mg tab) PO SCH (20:55)
[2021-05-11] MEDS: Amoxicillin/Clavul 500/125 TAB (Augmentin 500 mg tab) PO SCH ×2 (07:37→19:54)
[2021-05-11] MEDS: FLUTICASONE/UMECLIDIN/VILANTER 1 PUFF MDI INH SCH (09:40)
[2021-05-11] MEDS: Enoxaparin 40 MG/0.4 ML SYR SUBCUT SCH (14:19)
[2021-05-12 06:21] LABS: Hematocrit 24 % (42-52); Hemoglobin 8.6 g/dL (14.0-18.0); Mean Corpuscular HGB Conc 35 g/dL (31-36); Mean Corpuscular Hemoglobin 33 pg (27-31); Mean Corpuscular Volume 95 fL (80-94); Mean Platelet Volume 7.6 fL (7.4-10.4); Platelet Count 633 10^3/uL (150-450); Red Blood Count 2.57 10^6 /uL (4.18-5.48); Red Cell Distribution Width 17 % (10-15); White Blood Count 9.5 10^3/uL (3.5-10.8)
[2021-05-12 06:35] LABS: Albumin 3.3 g/dL (3.2-5.2); Calcium 8.4 mg/dL (8.6-10.3); Potassium 3.5 mmol/L (3.5-5.0)
[2021-05-12 06:41] LABS: Albumin/Globulin Ratio 1.1 (1-3); EGFR African American 165.3 (>60); EGFR Non-African American 136.6 (>60); Globulin 3.1 g/dL (2-4); Total Protein 6.4 g/dL (6.4-8.9)
[2021-05-12 07:18] LABS: ABS Basophils 0.1 10^3/ul (0-0.2); ABS Eosinophils 0.2 10^3/ul (0-0.6); ABS Lymphocytes 1.3 10^3/ul (1.0-4.8); ABS Monocytes 1.1 10^3/ul (0-0.8); ABS Neutrophils 6.7 10^3/ul (1.5-7.7); Eosinophil % 2.2 %; Lymphocyte % 14.2 %
[2021-05-12] MEDS: FLUTICASONE/UMECLIDIN/VILANTER 1 PUFF MDI INH SCH (08:04)
[2021-05-12] MEDS: Amoxicillin/Clavul 500/125 TAB (Augmentin 500 mg tab) PO SCH ×2 (08:04→22:15)
[2021-05-12] MEDS: Enoxaparin 40 MG/0.4 ML SYR SUBCUT SCH (14:41)
[2021-05-13] MEDS: FLUTICASONE/UMECLIDIN/VILANTER 1 PUFF MDI INH SCH ×2 (09:30→23:35)
[2021-05-13] MEDS: Enoxaparin 40 MG/0.4 ML SYR SUBCUT SCH (10:52)
[2021-05-14] MEDS: Enoxaparin 40 MG/0.4 ML SYR SUBCUT SCH (12:13)
[2021-05-14] MEDS: FLUTICASONE/UMECLIDIN/VILANTER 1 PUFF MDI INH SCH (20:53)
[2021-05-15] MEDS: Enoxaparin 40 MG/0.4 ML SYR SUBCUT SCH (11:27)
[2021-05-15] MEDS: FLUTICASONE/UMECLIDIN/VILANTER 1 PUFF MDI INH SCH (20:34)
[2021-05-16] MEDS: Enoxaparin 40 MG/0.4 ML SYR SUBCUT SCH (12:50)
[2021-05-16] MEDS: FLUTICASONE/UMECLIDIN/VILANTER 1 PUFF MDI INH SCH (20:37)
[2021-05-17] MEDS: Enoxaparin 40 MG/0.4 ML SYR SUBCUT SCH (12:08)
[2021-05-17] MEDS: FLUTICASONE/UMECLIDIN/VILANTER 1 PUFF MDI INH SCH (19:56)
[2021-05-18 05:36] VITALS: BP 155/89
[2021-05-18] MEDS: Enoxaparin 40 MG/0.4 ML SYR SUBCUT SCH (10:40)
== END 2021-05-18 13:38 | disposition home health service (06) | DRG 561 ==
LOC: PMRU 16:31
PROVIDERS: ADMIT Physical Medicine & Rehabilitation; ATTEND Physical Medicine & Rehabilitation